=== PATIENT | male | born 1960 | race Caucasian/White ===

== ENCOUNTER 2019-12-28 06:40 | Outpatient (REF) | payer OTHER, SELFPAY ==
[2019-12-28 11:46] LABS: Anion Gap 18 (12-20); Blood Urea Nitrogen 9 mg/dL (9-16); Calcium 8.6 mg/dL (8.4-10.2); Carbon Dioxide 21 mmol/L (22-29); Chloride 106 mmol/L (96-108); Cholesterol 192 mg/dL; Estimated Glomerular Filt Rate > 60; Glucose Fasting 79 mg/dL (60-99); HDL Cholesterol 53 mg/dL; LDL Cholesterol Calculated 106 mg/dl; Sodium 140 mmol/L (135-145); Triglycerides 168 mg/dL
[2019-12-28 12:16] LABS: Prostate Specific Antigen Scr 2.13 ng/mL (<0.05-4.0); TSH reflex Free T4 0.83 mIU/mL (0.32-4.0)
== END 2019-12-28 06:41 | disposition home or self-care (01) ==
LOC: HO.HMGCLDS 06:40
PROVIDERS: PCP Nurse Practitioner Family; Visit Provider Nurse Practitioner Family
DX: Z00.00 Encounter for general adult medical examination without abnormal findings (principal); Z12.5 Encounter for screening for malignant neoplasm of prostate
CPT/HCPCS: 80048; 80061; 84153; 84443

== ENCOUNTER → 2020-03-21 15:06 | Outpatient (BNVA) | payer OTHER, SELFPAY | PROVIDERS: PCP Nurse Practitioner Family; Visit Provider Internal Medicine Cardiovascular Disease | DX: I49.3 Ventricular premature depolarization (principal); I10 Essential (primary) hypertension | CPT/HCPCS: 93005 ==

== ENCOUNTER 2020-07-03 08:26 | Emergency (ER) | payer OTHER, SELFPAY ==
--- NOTE | ~2020-07-03 | US_ITS ---
EXAMINATION: US VENOUS ULTRASOUND WITH DOPPLER LOWER EXTREMITY, RIGHT CLINICAL INFORMATION: Pain and edema COMPARISON: None TECHNIQUE: Ultrasound of the deep veins is performed from the hip to the calf with compression sonography and color and pulse Doppler assessment. Spectral analysis with color-flow imaging is performed. FINDINGS: There is normal venous compression and respiratory variation and augmented flow. The visualized common femoral vein, superficial femoral vein, profunda femoral vein, popliteal vein, and the trifurcation region shows no evidence of deep venous thrombosis. There is no significant popliteal fossa cyst. There are multiple small lymph nodes in the groin. The largest one measuring 2.0 x 0.9 x 1.1 cm. There is mild edema in the right calf. If the patient's symptoms persist, followup ultrasound in 5 days 7 days might be of value to exclude proximal propagation from a non-visualized calf vein. US/US venous duplex LE RT IMPRESSION: No DVT demonstrated in the right lower extremity.
[2020-07-03 08:48] VITALS: BP 126/91; PULSE 78; RESP 18; TEMP 36.7; O2SAT 97; BMI 20.7
--- NOTE | 2020-07-03 09:19 | ED.LOWEXIN ---
HPI - Extremity Injury (Lower) General Chief Complaint: Extremity Injury, Lower Stated Complaint: leg infection Time Seen by Provider: 07/03/20 09:18 Source: patient and family () Mode of arrival: ambulatory Limitations: no limitations History of Present Illness HPI Narrative: Patient is a 59-year-old male with a past medical history of PVCs, HTN, PVD, HLD and cellulitis who is a current smoker complaining of a right lower extremity pain, swelling and redness. Patient states about a week ago and he has scratched does leg and is becoming more red and painful since. He went to his PCP this morning who told him to come to the emergency room. Patient's states he has difficulty ambulating on it because it is so painful. He denies taking any medications or doing anything to try to make it feel better. Denies any long flights or being sedentary for any length of time. Denies fevers Related Data Home Medications Medication Instructions Recorded Confirmed amlodipine 10 mg tablet 10 mg PO DAILY 12/27/19 03/21/20 metoprolol succinate 100 mg 100 mg PO DAILY 12/27/19 03/21/20 tablet,extended release 24 hr Previous Rx's Medication Instructions Recorded lisinopril 40 mg tablet 40 mg PO DAILY #90 cap 05/15/20 tadalafil 5 mg tablet 5 mg PO DAILY #90 cap 05/15/20 cephalexin [Keflex] 750 mg PO Q8H 10 Days #30 cap 07/03/20 doxycycline hyclate 100 mg PO BID 7 Days #14 tab 07/03/20 Allergies Allergy/AdvReac Type Severity Reaction Status Date / Time codeine [CODEINE] Allergy Unknown HIVES Verified 07/03/20 07:43 Review of Systems Review of Systems: Yes all other systems are reviewed and are negative [facility] Past Medical History Medical History Bigeminy Dyslipidemia Erectile dysfunction HTN (hypertension) Proteinuria PVCs (premature ventricular contractions) PVD (peripheral vascular disease) Rosacea Tachycardia Tobacco use Surgical History No pertinent past surgical history Family History Family History Father No problems noted. Mother No problems noted. Sister No problems noted. Sister No problems noted. Son No problems noted. Brother No problems noted. Brother No problems noted. Brother No problems noted. Brother No problems noted. Social History Social History Smoking Status: Current every day smoker Smoked in Last 30 Days: Yes Use of substances other than those prescribed or required for medical reasons: No Advance Directives: No Advance Directives Information Provided: No Physical Exam Vital Signs: Vital Signs: Last Vital Signs Temp 98.1 F 07/03/20 08:48 Pulse 78 07/03/20 08:48 Resp 18 07/03/20 08:48 BP 126/91 H 07/03/20 08:48 Pulse Ox 97 07/03/20 08:48 Body Mass Index 20.7 Const: General: cooperative, healthy appearing, comfortable and no acute distress Nutritional Appearance: average body habitus Orientation/consciousness: patient oriented x3 HENMT: Head: Yes normal to inspection Ears: hearing grossly normal bilaterally General nose exam: Normal external nose present Eyes: General: appearance normal, both eyes and all related structures Resp: Effort & Inspection: normal respiratory effort and able to speak in complete sentences Neuro: General: patient oriented x3 Extrem: Other: Right lower extremity from the mid calf down to the toes edema, erythema, TTP, positive Homans sign, good pulses Course Course Course Narrative: 59-year-old male past medical history of HTN, HLD, PVD, current smoker and cellulitis complaining of 1 week of redness, swelling to right lower extremity. Physical exam revealed right lower extremity, positive Homans sign, erythema, swelling, good pulses. Wells criteria puts patient at a 2, moderate risk, will get ultrasound to rule out DVT, and labs for WBC, d dimer as well. This is likely cellulitis. VSS. MDM - Extremity Injury (Lower) Lab Data Attestation: I reviewed the patient's lab results. Result diagrams: 07/03/20 10:13 07/03/20 10:12 Labs: Lab Results 07/03/20 07/03/20 07/03/20 Range/Units 10:12 10:12 10:13 WBC 9.8 (4.8-10.8) X10*3/uL RBC 6.11 H (4.60-5.80) X10*6/uL Hgb 20.2 H (14.0-18.0) g/dl Hct 59.6 H (42-52) % MCV 97.5 (80-98) fL MCH 33.1 H (27.0-33.0) pg MCHC 33.9 (31.0-36.0) g/dl RDW 15.2 (11.0-16.0) % Plt Count 445 H (160-400) X10*3/uL MPV 10.1 (9.4-12.4) fL Immature Gran % (Auto) 2.2 H (0.0-0.4) % Neut % (Auto) 77.6 H (45-73) % Lymph % (Auto) 10.2 L (20-40) % [place] % (Auto) 6.7 (2-11) % Eos % (Auto) 1.6 (0-4) % Baso % (Auto) 1.7 (0-2) % Lymph # (Auto) 1.0 L (1.2-4.9) X10*3/uL [place] # (Auto) 0.7 (0.1-1.2) X10*3/uL Eos # (Auto) 0.2 (0.0-0.4) X10*3/uL Baso # (Auto) 0.2 (0.0-0.2) X10*3/uL Abs Immat Gran (auto) 0.21 H (0.00-0.03) X10*3/uL Absolute Neuts (auto) 7.6 (2.0-8.3) X10*3/uL Absolute Nucleated RBC 0.000 (0.0-0.012) X10*3/uL Nucleated RBC % (auto) 0.0 (0.0-0.2) /100WBC D-Dimer 250 NG/ML Sodium 140 (135-145) mmol/L Potassium 4.1 (3.3-5.1) mmol/L Chloride 108 (96-108) mmol/L Carbon Dioxide 19 L (22-29) mmol/L Anion Gap 17 (12-20) BUN 7 L (9-16) mg/dL Creatinine 0.62 (0.5-1.4) mg/dL Estim Creat Clear Calc 112.3 Estimated GFR > 60 Random Glucose 93 (60-115) mg/dL Calcium 9.1 (8.4-10.2) mg/dL Imaging Data US LE: Attestation: I personally reviewed and interpreted this imaging study as follows: My impression: No DVT Radiologist's impression: [address] [id number] ReportSigned Patient: Michel MartinezMR#: [id number]: [id number]:[id number]/Sex: 59 / MADM Date: 07/03/20Loc: HO.EDAttending Dr: Ordering Physician: Tonya Pink PA-C Date of Service: 07/03/20 Procedure(s): US venous duplex LE RT Accession Number(s): [id number] cc: Tonya Pink PA-C~ EXAMINATION: US VENOUS ULTRASOUND WITH DOPPLER LOWER EXTREMITY, RIGHT CLINICAL INFORMATION: Pain and edema COMPARISON: None TECHNIQUE: Ultrasound of the deep veins is performed from the hip to the calf with compression sonography and color and pulse Doppler assessment. Spectral analysis with color-flow imaging is performed. FINDINGS: There is normal venous compression and respiratory variation and augmented flow. The visualized common femoral vein, superficial femoral vein, profunda femoral vein, popliteal vein, and the trifurcation region shows no evidence of deep venous thrombosis. There is no significant popliteal fossa cyst. There are multiple small lymph nodes in the groin. The largest one measuring 2.0 x 0.9 x 1.1 cm. There is mild edema in the right calf. If the patient's symptoms persist, followup ultrasound in 5 days 7 days might be of value to exclude proximal propagation from a non-visualized calf vein. US/US venous duplex LE RT IMPRESSION: No DVT demonstrated in the right lower extremity. Dictated By:DWAYNE BARAJAS MDSigned By:<Electronically signed by DWAYNE BARAJAS MD in OV>07/03/20 1054 DD/ [id number]/TT: Ammonium Hydroxide Operator: [facility] [place] Discharge Plan Discharge Clinical Impression: Cellulitis Qualifiers: Site of cellulitis: extremity Site of cellulitis of extremity: lower extremity Laterality: right Qualified Code(s): L03.115 - Cellulitis of right lower limb Patient Disposition: Home, Self-Care Instructions: Cellulitis (ED) Additional Instructions: Your ultrasound showed no DVT in your right lower extremity today. As discussed, please take both antibiotics in full under cellulitis should start to resolve in the next few days. If you develop a fever, a heart rate over 100 where the swelling and pain and redness gets worse, please return to the emergency department. Prescriptions: New cephalexin [Keflex] 750 mg capsule 750 mg PO Q8H 10 Days Qty: 30 RF: 0 doxycycline hyclate 100 mg tablet 100 mg PO BID 7 Days Qty: 14 RF: 0 No Action tadalafil 5 mg tablet 5 mg PO DAILY Qty: 90 RF: 0 lisinopril 40 mg tablet 40 mg PO DAILY Qty: 90 RF: 2 amlodipine 10 mg tablet 10 mg PO DAILY RF: 0 metoprolol succinate 100 mg tablet extended release 24 hr 100 mg PO DAILY RF: 0
[2020-07-03 10:19] LABS: MANUAL DIFF FLAG NO
[2020-07-03 10:31] LABS: Basophils Absolute Auto 0.2 X10*3/uL (0.0-0.2); Basophils Percent Auto 1.7 % (0-2); Eosinophils Absolute Auto 0.2 X10*3/uL (0.0-0.4); Eosinophils Percent Auto 1.6 % (0-4); Imm Gran Abs Auto 0.21 X10*3/uL (0.00-0.03); Imm Gran Pct Auto 2.2 % (0.0-0.4); Lymphocytes Percent Auto 10.2 % (20-40); Mean Corpuscular HGB Conc 33.9 g/dl (31.0-36.0); Mean Corpuscular Hemoglobin 33.1 pg (27.0-33.0); Mean Corpuscular Volume 97.5 fL (80-98); Mean Platelet Volume 10.1 fL (9.4-12.4); Monocytes Absolute Auto 0.7 X10*3/uL (0.1-1.2); Monocytes Percent Auto 6.7 % (2-11); Neutrophils Absolute Auto 7.6 X10*3/uL (2.0-8.3); Neutrophils Percent Auto 77.6 % (45-73); Platelet Count 445 X10*3/uL (160-400); Red Blood Count 6.11 X10*6/uL (4.60-5.80); Red Cell Distribution Width 15.2 % (11.0-16.0); White Blood Count 9.8 X10*3/uL (4.8-10.8)
[2020-07-03 10:32] LABS: D Dimer 250 NG/ML
[2020-07-03 10:32] LABS: Hematocrit 59.6 % (42-52); Hemoglobin 20.2 g/dl (14.0-18.0)
[2020-07-03 10:44] LABS: Anion Gap 17 (12-20); Blood Urea Nitrogen 7 mg/dL (9-16); Calcium 9.1 mg/dL (8.4-10.2); Carbon Dioxide 19 mmol/L (22-29); Chloride 108 mmol/L (96-108); Creatinine Clr Calc Pharmacy 112.3; Estimated Glomerular Filt Rate > 60; Glucose Random 93 mg/dL (60-115); Potassium 4.1 mmol/L (3.3-5.1); Sodium 140 mmol/L (135-145)
== END 2020-07-03 11:30 | disposition home or self-care (01) ==
PROVIDERS: Physician Assistant; Emergency Provider Emergency Medicine Emergency Medical Services; PCP Nurse Practitioner Family
DX: L03.115 Cellulitis of right lower limb (principal); R60.0 Localized edema; Z79.899 Other long term (current) drug therapy; F17.200 Nicotine dependence, unspecified, uncomplicated; Z71.6 Tobacco abuse counseling
CPT/HCPCS: 36415; 80048; 85025; 85060; 85379; 93971; 99283

== ENCOUNTER 2020-07-09 06:46 | Observation (INO) | payer OTHER, SELFPAY ==
--- NOTE | ~2020-07-09 | US_ITS ---
EXAMINATION: US VENOUS ULTRASOUND WITH DOPPLER LOWER EXTREMITY, RIGHT CLINICAL INFORMATION: Right leg pain and swelling. Question superficial thrombophlebitis. COMPARISON: None TECHNIQUE: Ultrasound of the deep veins is performed from the hip to the calf with compression sonography and color and pulse Doppler assessment. Spectral analysis with color-flow imaging is performed. FINDINGS: There is normal venous compression and respiratory variation and augmented flow. The visualized common femoral vein, superficial femoral vein, profunda femoral vein, popliteal vein, and the trifurcation region shows no evidence of deep venous thrombosis. The popliteal vein is not visualized. There is acute appearing clot within the greater saphenous vein from proximal to distal segment of the calf. There are multiple large groin lymph nodes. Largest measuring 1.8 x 0.8 x 1.4 cm. If the patient's symptoms persist, followup ultrasound in 5 days 7 days might be of value to exclude proximal propagation from a non-visualized calf vein. US/US venous duplex LE RT IMPRESSION: No DVT demonstrated in the right lower extremity. Acute clot within the greater saphenous vein from proximal to distal calf suggestive of superficial thrombophlebitis. Multiple large groin lymph nodes.
--- NOTE | ~2020-07-09 | CT_ITS ---
EXAMINATION: CT ABDOMEN AND PELVIS WITHOUT AND WITH CONTRAST CLINICAL INFORMATION: Inguinal lymphadenopathy and erythrocytosis. Evaluate for renal cell cancer and adenopathy. COMPARISON: Previous renal and bladder ultrasound July 2014 TECHNIQUE: Multidetector volumetric imaging was performed of the abdomen and pelvis before and after the IV administration of 85 mL of Omnipaque 350 intravenous contrast. Sagittal and coronal reformatted images were obtained on the technologist's workstation. This CT examination was performed using dose optimization techniques as appropriate, variously including the following: *Automated exposure control *Adjustment of mA and/or kV according to patient size (this includes techniques or standardized protocols for targeted exams where dose is matched to indication/reason for exam; i.e. extremities or head) *Use of iterative reconstruction technique DLP: 834 mGy-cm FINDINGS: LUNG BASES: The visualized lung bases are unremarkable. LIVER, GALLBLADDER, AND BILIARY TREE: The liver is low in attenuation suggestive of fatty infiltration. There is a small 3 mm low-attenuation lesion in the medial segment of the left lobe of the liver axial image 13 series 9. This is small to definitely characterize but may represent a cyst. No other liver lesion is seen. The gallbladder is unremarkable. There are no gallstones in the gallbladder. PANCREAS: There is a small 4 mm cyst in the body the pancreas axial image 23 series 9. Pancreas is otherwise normal. The main pancreatic duct does not appear dilated. SPLEEN: Unremarkable ADRENAL GLANDS: There is fullness of the left adrenal gland. Discrete nodule is not seen. The right adrenal gland is normal. KIDNEYS AND URETERS: . There are small low-attenuation renal lesions probably representing cysts. The largest measures 5 mm in the midpole of each kidney. No renal mass is seen. The kidneys are normal in size, shape, and attenuation. No hydronephrosis, hydroureter, or calculi seen BLADDER: Unremarkable GASTROINTESTINAL TRACT: The small and large bowel are unremarkable. The appendix is identified. The ABDOMINAL WALL: No significant hernia is appreciated. LYMPH NODES: There are no enlarged lymph nodes. There is no ascites. VASCULAR: There is evidence of atherosclerotic disease. PELVIC VISCERA: Unremarkable OSSEOUS STRUCTURES: There is ankylosis at the L5-S1 disc space level. There are degenerative changes of the spine. No fracture or bone lesion is seen. CT/CT abdomen pelvis wo/w con IMPRESSION: Fatty liver. Small 5 mm cyst in the body of the pancreas. Small probable bilateral renal cysts. Otherwise normal appearing kidneys. No adenopathy.
--- NOTE | 2020-07-09 07:11 | ED.SKABFB ---
HPI - Skin/Abscess/Foreign Bdy General Chief complaint: Skin/Abscess/Foreign Body Stated complaint: Cellulitis? Time Seen by Provider: 07/09/20 07:11 Source: patient Mode of arrival: ambulatory Limitations: no limitations History of Present Illness HPI narrative: 59 yo male with HTN here with worsening cellulitis and red streaks up R leg after starting cephalexin and doxycycline for 6 days, no fevers, no chills, area started out as a scratch after hitting leg MD complaint: rash Onset (ago): week(s) (1) Tetanus up to date: yes Location: RLE Severity: moderate Quality: aching Pain Consistency: constant Relieving factors: none Exacerbating factors: none Context: recent illness and recent antibiotic Associated symptoms: denies other symptoms Treatments prior to arrival: antibiotic Related Data Home Medications Medication Instructions Recorded Confirmed metoprolol succinate 100 mg 100 mg PO DAILY 12/27/19 07/09/20 tablet,extended release 24 hr cephalexin 1 cap PO QID 07/09/20 07/09/20 Previous Rx's Medication Instructions Recorded lisinopril 40 mg tablet 40 mg PO DAILY #90 cap 05/15/20 tadalafil 5 mg tablet 5 mg PO DAILY #90 cap 05/15/20 doxycycline hyclate 100 mg PO BID 7 Days #14 tab 07/03/20 amlodipine 10 mg tablet 10 mg PO DAILY #90 tab 07/08/20 Allergies Allergy/AdvReac Type Severity Reaction Status Date / Time codeine [CODEINE] Allergy Unknown HIVES Verified 07/03/20 07:43 Review of Systems Review of Systems: Constitutional : No Fever, No Chills ENT/Mouth : No sore throat, No Rhinorrhea Eyes: No Eye Pain, No Swelling, No Redness Cardiovascular : No Chest Pain, No SOB Respiratory : No Cough, No Sputum Gastrointestinal : No Nausea, No Vomiting, No Diarrhea, No abdominal Pain Genitourinary : No Dysuria, No Hematuria Musculoskeletal : No joint pain, No Myalgias, No Joint Swelling Skin : No Skin Lesions, positive skin rash Neuro : No Weakness, No Numbness, No Headache Psych : No Anxiety, No Depression Heme/Lymph: No Bruising, No Bleeding,No Lymphadenopathy Endocrine : No Polyuria, No Polydipsia All other systems reviewed and are negative PMFSH Past Medical History Attestation statement: The following information was validated with the patient. Medical History Bigeminy Dyslipidemia Erectile dysfunction HTN (hypertension) Proteinuria PVCs (premature ventricular contractions) PVD (peripheral vascular disease) Rosacea Tachycardia Tobacco use Surgical History No pertinent past surgical history Family History Family History Father No problems noted. Mother No problems noted. Sister No problems noted. Sister No problems noted. Son No problems noted. Brother No problems noted. Brother No problems noted. Brother No problems noted. Brother No problems noted. Social History Social History Smoking Status: Current every day smoker Advance Directives: Yes Advance Directives Information Provided: Yes Advance Directives on File: No Physical Exam Vital Signs: Vital Signs: Last Vital Signs Temp 99.0 F 07/09/20 08:01 Pulse 78 07/09/20 08:01 Resp 20 07/09/20 08:01 BP 147/98 H 07/09/20 08:01 Pulse Ox 97 07/09/20 08:01 Body Mass Index 20.7 Appearance: Alert. Oriented X3. No acute distress. Eyes: Pupils equal, round and reactive to light. ENT: Pharynx normal. Neck: Normal inspection. Neck supple. CVS: Normal heart rate and rhythm. Pulses normal. Respiratory: No respiratory distress. Breath sounds normal. Abdomen: Soft and nontender. Skin: Skin warm and dry. Normal skin color. Normal skin turgor. Extremities: RLE erythema /warmth and swelling with lymphangitis from ankle to proximal calf, ropy cord felt R inner calf, distal NV intact, full ROM of ankle without pain Neuro: Oriented X 3. No motor deficit. No sensory deficit. Course Course Course Narrative: called Radiology thrombophlebitis is greater than 5cm will need xarelto for 45 days, does not want coumadin, discussed risks and benefits denies GIB symptoms aware of bleeding risks, will need admission at this time, called hospitalist at 922am for admission MDM - Skin/Abscess/Foreign Bdy MDM Narrative Medical decision making narrative: 59 yo male with HTN completed almost a week of cephalexin and doxy worsening RLE swelling/erythema now streaking up leg at this time will need labs, cultures, DVT study vs superficial thrombophlebitis, US to evaluate DVT, IV antibiotics, likely admit Lab Data Result diagrams: 07/09/20 07:33 07/09/20 07:33 Labs: Lab Results 07/09/20 07/09/20 07/09/20 Range/Units 07:33 07:33 07:33 WBC 10.2 (4.8-10.8) X10*3/uL RBC 6.02 H (4.60-5.80) X10*6/uL Hgb 19.8 H (14.0-18.0) g/dl Hct 57.8 H (42-52) % MCV 96.0 (80-98) fL MCH 32.9 (27.0-33.0) pg MCHC 34.3 (31.0-36.0) g/dl RDW 14.9 (11.0-16.0) % Plt Count 445 H (160-400) X10*3/uL MPV 10.3 (9.4-12.4) fL Immature Gran % (Auto) 1.7 H (0.0-0.4) % Neut % (Auto) 79.6 H (45-73) % Lymph % (Auto) 8.1 L (20-40) % [place] % (Auto) 7.6 (2-11) % Eos % (Auto) 1.6 (0-4) % Baso % (Auto) 1.4 (0-2) % Lymph # (Auto) 0.8 L (1.2-4.9) X10*3/uL [place] # (Auto) 0.8 (0.1-1.2) X10*3/uL Eos # (Auto) 0.2 (0.0-0.4) X10*3/uL Baso # (Auto) 0.1 (0.0-0.2) X10*3/uL Abs Immat Gran (auto) 0.17 H (0.00-0.03) X10*3/uL Absolute Neuts (auto) 8.1 (2.0-8.3) X10*3/uL Absolute Nucleated RBC 0.000 (0.0-0.012) X10*3/uL Nucleated RBC % (auto) 0.0 (0.0-0.2) /100WBC Hold Blue Top SEE NOTE Lactic Acid 1.8 (0.5-2.0) mmol/L COVID-19 (KISHA) (Negative) COVID-19 Clin Com 07/09/20 Range/Units 07:34 WBC (4.8-10.8) X10*3/uL RBC (4.60-5.80) X10*6/uL Hgb (14.0-18.0) g/dl Hct (42-52) % MCV (80-98) fL MCH (27.0-33.0) pg MCHC (31.0-36.0) g/dl RDW (11.0-16.0) % Plt Count (160-400) X10*3/uL MPV (9.4-12.4) fL Immature Gran % (Auto) (0.0-0.4) % Neut % (Auto) (45-73) % Lymph % (Auto) (20-40) % [place] % (Auto) (2-11) % Eos % (Auto) (0-4) % Baso % (Auto) (0-2) % Lymph # (Auto) (1.2-4.9) X10*3/uL [place] # (Auto) (0.1-1.2) X10*3/uL Eos # (Auto) (0.0-0.4) X10*3/uL Baso # (Auto) (0.0-0.2) X10*3/uL Abs Immat Gran (auto) (0.00-0.03) X10*3/uL Absolute Neuts (auto) (2.0-8.3) X10*3/uL Absolute Nucleated RBC (0.0-0.012) X10*3/uL Nucleated RBC % (auto) (0.0-0.2) /100WBC Hold Blue Top Lactic Acid (0.5-2.0) mmol/L COVID-19 (KISHA) Negative (Negative) COVID-19 Clin Com See Note Discharge Plan Discharge Clinical Impression: Cellulitis, Superficial thrombophlebitis of leg Patient Disposition: Admitted As Inpatient Prescriptions: No Action tadalafil 5 mg tablet 5 mg PO DAILY Qty: 90 RF: 0 lisinopril 40 mg tablet 40 mg PO DAILY Qty: 90 RF: 2 amlodipine 10 mg tablet 10 mg PO DAILY Qty: 90 RF: 1 doxycycline hyclate 100 mg tablet 100 mg PO BID 7 Days Qty: 14 RF: 0 cephalexin 500 mg capsule 1 cap PO QID RF: 0 metoprolol succinate 100 mg tablet extended release 24 hr 100 mg PO DAILY RF: 0
[2020-07-09 07:12] VITALS: BP 143/89; PULSE 86; RESP 20; TEMP 36.8; O2SAT 97; BMI 20.7
[2020-07-09 07:41] LABS: MANUAL DIFF FLAG NO
[2020-07-09] MEDS: Piperacillin Sodium/Tazobactam 3.375 GM in 0.9 % Sodium Chloride 50 ML IV (07:49)
[2020-07-09] MEDS: 0.9 % Sodium Chloride 1,000 ML 999 ML IVCONT ×2 (07:57→10:06)
[2020-07-09 07:58] LABS: Basophils Absolute Auto 0.1 X10*3/uL (0.0-0.2); Basophils Percent Auto 1.4 % (0-2); Eosinophils Absolute Auto 0.2 X10*3/uL (0.0-0.4); Eosinophils Percent Auto 1.6 % (0-4); Hemoglobin 19.8 g/dl (14.0-18.0); Imm Gran Abs Auto 0.17 X10*3/uL (0.00-0.03); Imm Gran Pct Auto 1.7 % (0.0-0.4); Lymphocytes Absolute Auto 0.8 X10*3/uL (1.2-4.9); Lymphocytes Percent Auto 8.1 % (20-40); Mean Corpuscular HGB Conc 34.3 g/dl (31.0-36.0); Mean Corpuscular Hemoglobin 32.9 pg (27.0-33.0); Mean Platelet Volume 10.3 fL (9.4-12.4); Monocytes Absolute Auto 0.8 X10*3/uL (0.1-1.2); Monocytes Percent Auto 7.6 % (2-11); Neutrophils Absolute Auto 8.1 X10*3/uL (2.0-8.3); Neutrophils Percent Auto 79.6 % (45-73); Platelet Count 445 X10*3/uL (160-400); Red Blood Count 6.02 X10*6/uL (4.60-5.80); Red Cell Distribution Width 14.9 % (11.0-16.0); White Blood Count 10.2 X10*3/uL (4.8-10.8)
[2020-07-09 07:59] LABS: Hematocrit 57.8 % (42-52)
[2020-07-09 08:00] LABS: Lactic Acid 1.8 mmol/L (0.5-2.0)
[2020-07-09 08:01] VITALS: BP 147/98; PULSE 78; RESP 20; TEMP 37.2; O2SAT 97
[2020-07-09 08:02] LABS: COVID-19 Test Negative (Negative)
--- NOTE | 2020-07-09 08:15 | PC.NURSE ---
Pt alert and oriented, skin pink, warm, dry. Afebrile, VSS, + CMS. Cellulitic area to RLE extending to medial calf. Pt started on IV Abt, Ultra Sound being done at this time. at bedside.
[2020-07-09] MEDS: vancomycin HCL 1,000 MG in 0.9 % Sodium Chloride 250 ML 270 MG IV (08:46)
[2020-07-09 09:23] LABS: Prothrombin Time 11.5 SEC (10.8-13.0)
[2020-07-09 09:55] LABS: Alanine Aminotransferase 11 U/L (0-40); Albumin Level 3.4 g/dL (3.5-5.0); Alkaline Phosphatase 56 U/L (39-117); Anion Gap 13 (12-20); Aspartate Amino Transferase 21 U/L (5-37); Bilirubin Direct 0.4 mg/dL (0.0-0.5); Blood Urea Nitrogen 10 mg/dL (9-16); Calcium 8.4 mg/dL (8.4-10.2); Carbon Dioxide 23 mmol/L (22-29); Chloride 107 mmol/L (96-108); Creatinine Clr Calc Pharmacy 105.5; Estimated Glomerular Filt Rate > 60; Glucose Random 96 mg/dL (60-115); Magnesium 1.8 mg/dL (1.6-2.6); Potassium 3.9 mmol/L (3.3-5.1); Sodium 139 mmol/L (135-145); Total Protein 5.5 g/dL (6.5-8.0)
[2020-07-09] MEDS: Rivaroxaban 10 MG TABLET PO (10:34)
[2020-07-09 10:43] VITALS: BP 146/78; PULSE 85; RESP 16; O2SAT 97
--- NOTE | 2020-07-09 10:50 | P.HPHOSP_ITS ---
History of Present Illness Date of Service: 07/09/20 Chief Complaint: rle swelling redness 59M presented with about 1 week, right lower extremity swelling and erythema and pain. he was seen in ED 07/03/20, at that time US was negative for DVT, he was diagnosed with cellulitis, given cephalexin and doxy, patient reports that he did not improve so he came back. he denied fever, chills, sob, chest pain. denied history of VTE. in ED repeat US showed Acute clot within the greater saphenous vein from proximal to distal calf suggestive of superficial thrombophlebitis and Multiple large groin lymph nodes. of note he has an elevated hgb of 20 and platelets around 450. Review of Systems Review of Systems: Constitutional: Denies fever, denies Chills Eyes: denies blurry vision ENT: denies sore throat CVS: denies chest pain Respiratory: Denies dyspnea GI: no abdominal pain : denies dysuria MSK: denies neck pain Skin: rash Neuro: denies specific motor weakness Psych: denies suicidal ideation Endocrine: denies heat/cold intoleratnce Hematologic: denies easy bleeding Allergy: denies hives [facility] Medical History Bigeminy Dyslipidemia Erectile dysfunction HTN (hypertension) Proteinuria PVCs (premature ventricular contractions) PVD (peripheral vascular disease) Rosacea Tachycardia Tobacco use Family History Father No problems noted. Mother No problems noted. Sister No problems noted. Sister No problems noted. Son No problems noted. Brother No problems noted. Brother No problems noted. Brother No problems noted. Brother No problems noted. Family history: reviewed and not pertinent Surgical History No pertinent past surgical history Social History Alcohol intake: current Alcohol intake frequency: 0-2 drinks per day Alcohol type: beer Smoking Status: Current every day smoker Use of substances other than those prescribed or required for medical reasons: No Advance Directives: Yes Advance Directives Information Provided: Yes Advance Directives on File: No Meds Allergies Allergy/AdvReac Type Severity Reaction Status Date / Time codeine [CODEINE] Allergy Unknown HIVES Verified 07/03/20 07:43 Active Medications: Current Medications Generic Name Dose Route Start Last Admin Trade Name Comfort PRN Reason Stop Dose Admin Amlodipine Besylate 10 mg 07/10/20 09:00 Amlodipine Besylate 10 Mg Tablet PO DAILY [facility] Protocol Lisinopril 40 mg 07/10/20 09:00 Lisinopril 40 Mg Tablet PO DAILY [facility] Protocol Metoprolol Succinate 100 mg 07/10/20 09:00 Metoprolol Succinate Er 100 Mg Tab.Er.24h PO DAILY [facility] Protocol Non-Formulary Medication 5 mg 07/10/20 09:00 Tadalafil PO DAILY [facility] Rivaroxaban 15 mg 07/09/20 21:00 Rivaroxaban 15 Mg Tablet PO BID [facility] Sodium Chloride 3 ml 07/09/20 16:00 0.9 % Sodium Chloride Flush 3 Ml Syringe IVFLUSH QSHIFT [facility] Home Medications Medication Instructions Recorded Confirmed Last Taken Type metoprolol succinate 100 mg 100 mg PO DAILY 12/27/19 07/09/20 07/09/20 History tablet,extended release 24 hr cephalexin 1 cap PO QID 07/09/20 07/09/20 07/09/20 History Physical Exam Vital Signs and Narrative: Vital Signs: Last Vital Signs Temp 99.0 F 07/09/20 08:01 Pulse 85 07/09/20 10:43 Resp 16 07/09/20 10:43 BP 146/78 H 07/09/20 10:43 Pulse Ox 97 07/09/20 10:43 Body Mass Index 20.7 General: no acute distress HEENT: atraumatic Neck: normal to visual inspection CVS: S1, S2, RRR Resp: CTA bilateral Chest: non tender GI: soft, non tender, non distended : no CVA tenderness Skin: dry Extremities: RLE streaky ertyhema, groin lymph nodes Neuro: Oriented X3, grossly intact Psych: cooperative Results Labs CBC and Chem 7: 07/09/20 07:33 07/09/20 09:24 Labs: Laboratory Results - last 24 hr 07/09/20 07/09/20 07/09/20 07:33 07:33 07:33 MCV 96.0 MCH 32.9 MCHC 34.3 RDW 14.9 Plt Count 445 H MPV 10.3 Immature Gran % (Auto) 1.7 H Neut % (Auto) 79.6 H Lymph % (Auto) 8.1 L [place] % (Auto) 7.6 Eos % (Auto) 1.6 Baso % (Auto) 1.4 Lymph # (Auto) 0.8 L [place] # (Auto) 0.8 Eos # (Auto) 0.2 Baso # (Auto) 0.1 Abs Immat Gran (auto) 0.17 H Absolute Neuts (auto) 8.1 Absolute Nucleated RBC 0.000 Nucleated RBC % (auto) 0.0 PT 11.5 INR 1.0 APTT 35.0 Hold Blue Top SEE NOTE Anion Gap Estim Creat Clear Calc Estimated GFR Random Glucose Lactic Acid 1.8 Calcium Magnesium Total Bilirubin Direct Bilirubin AST ALT Alkaline Phosphatase Total Protein Albumin COVID-19 (KISHA) COVID-19 Pycno Com 07/09/20 07/09/20 07:34 09:24 MCV MCH MCHC RDW Plt Count MPV Immature Gran % (Auto) Neut % (Auto) Lymph % (Auto) [place] % (Auto) Eos % (Auto) Baso % (Auto) Lymph # (Auto) [place] # (Auto) Eos # (Auto) Baso # (Auto) Abs Immat Gran (auto) Absolute Neuts (auto) Absolute Nucleated RBC Nucleated RBC % (auto) PT INR APTT Hold Blue Top Anion Gap 13 Estim Creat Clear Calc 105.5 Estimated GFR > 60 Random Glucose 96 Lactic Acid Calcium 8.4 D Magnesium 1.8 Total Bilirubin 1.0 Direct Bilirubin 0.4 AST 21 ALT 11 Alkaline Phosphatase 56 Total Protein 5.5 L Albumin 3.4 L COVID-19 (KISHA) Negative COVID-19 Clin Com See Note Imaging Radiologist's Impressions: Impressions Venous Duplex 07/09/20 07:16 IMPRESSION: No DVT demonstrated in the right lower extremity. Acute clot within the greater saphenous vein from proximal to distal calf suggestive of superficial thrombophlebitis. Multiple large groin lymph nodes. Assessment and Plan (1) Superficial thrombophlebitis of leg: Qualifiers: Laterality: right Qualified Code(s): I80.01 - Phlebitis and thrombophle bitis of superficial vessels of right lower extremity Status: Acute 59M presented with RLE ertyhema, edema not responding to antibiotics, found to have superficial thrombophlebitis and elevated hgb and platelets superficial thrombophlebitis risk factor appears to be undiagnosed myeloproliferative disorder phlebotomy, full dose anticoagulation - xarelto 15 bid for 3 weeks then 20mg daily, check ldh, johnathan 2, hematology eval, follow up lymph nodes for resolution htn lisinpirl amlodipine toprol smoking cessation alcohol use 2-3 beers per day monitor for withdrawl low risk
[2020-07-09 11:21] LABS: Lactate Dehydrogenase 178 U/L (118-273)
[2020-07-09 14:22] VITALS: BP 149/89; PULSE 77; RESP 16; O2SAT 97
--- NOTE | 2020-07-09 14:35 | PC.NURSE ---
Pt transported to blood bank for therapeutic phelbotomy procedure
--- NOTE | 2020-07-09 14:36 | MHC.CM.PN ---
Attempted to meet with patient in regards to discharge planning. Patient not currently in room. Will attempt to meet again. Continue to monitor for d/c needs.
--- NOTE | 2020-07-09 15:18 | PM.HEMONCCN ---
Subjective - Subjective Chief complaint: Consult for:1. Erythrocytosis.2. Superficial thrombophlebitis right leg. Patient: new to practice Consult date: 07/09/20 Requesting Physician: Tanya. [facility] Summary: DIAGNOSIS: 1. ERYTHROCYTOSIS. 2. SUPERFICIAL THROMBOPHLEBITIS RIGHT LEG. HPI - Consult Narrative Reason for consult: Consult for erythrocytosis. Right leg thrombophlebitis. Narrative: Michel Martinez is a pleasant 59 year old gentleman, who tells me that he was seen by his primary last Wednesday. He had banged his leg on the side of the house. Area became rather red and warm. He was referred to the emergency room for cellulitis. They gave him oral antibiotics. It started getting better, however this morning he woke to see a red streak going the leg. He presented to the ER. Ultrasound of the leg revealed: No DVT demonstrated in the right lower extremity. Acute clot within the greater saphenous vein from proximal to distal calf suggestive of superficial thrombophlebitis. Multiple large groin lymph nodes. CBC: WBC 10.2, HGB 19.8, HCT 57.8, MCV 96, PLT 445. LDH 178, albumin 3.4, Josh 8.4. ROS: He tells me that other than that he has been doing well. He denies easy fatigability. Appetite is good. Weight is stable. Denies headache no dizziness. No chest pain or trouble breathing. He denies abdominal pain nausea vomiting heartburn indigestion. Bowels are working without any gross blood in it. He denies any dysuria or hematuria. No joint pain muscle pain. Denies any focal weakness. Denies depression. Denies any rashes nor pruritus nor itching after a bath. Family history: Denies any family history of blood disorder nor cancer. Social history: He works with the [employer]. He is . He has 1 son and 2 granddaughters. He smokes a pack a day he started 10 years ago. He likes his beer. Denies drugs. Review of Systems - Constitutional Reports system reviewed and no additional complaints, except as documented - Eyes Reports system reviewed and no additional complaints, except as documented - ENT Reports system reviewed and no additional complaints, except as documented - Cardiovascular Reports system reviewed and no additional complaints, except as documented - Respiratory Reports no additional respiratory complaints - Gastrointestinal Reports system reviewed and no additional complaints, except as documented - Genitourinary Genitourinary: Reports no additional male genitourinary complaints - Musculoskeletal Reports system reviewed and no additional complaints, except as documented - Integumentary/Breasts Skin/Breast: Reports no additional skin complaints - Neurologic Reports system reviewed and no additional complaints, except as documented - Psychiatric Reports system reviewed and no additional complaints, except as documented - Endocrine Reports no additional endocrine complaints - Hematologic/Lymphatic Reports system reviewed and no additional complaints, except as documented - Allergic/Immunologic Reports system reviewed and no additional complaints, except as documented Oncology Screenings - ECOG Performance Status ECOG Performance Status: 0 [facility] Medical History: Medical History (Last Updated 07/16/20 @ 13:14 by Nuria Eid) Bigeminy Dyslipidemia Erectile dysfunction Erythrocytosis Herniated disc HTN (hypertension) Proteinuria PVCs (premature ventricular contractions) PVD (peripheral vascular disease) Rosacea Superficial thrombophlebitis of leg Tachycardia Tobacco use Functional capacity: independent ambulation Patient : No Family History: Family History (Last Reviewed 07/09/20 @ 10:55 by Juan Jose Martínez MD) Father No problems noted. Mother No problems noted. Sister No problems noted. Sister No problems noted. Son No problems noted. Brother No problems noted. Brother No problems noted. Brother No problems noted. Brother No problems noted. Family history: reviewed and not pertinent Surgical History: Surgical History (Last Updated 07/16/20 @ 13:14 by Nuria Eid) History of appendectomy No pertinent past surgical history Social History: Social History (Last Updated 07/16/20 @ 13:14 by Nuria Eid) Alcohol History: Alcohol intake: current Alcohol History Details: Alcohol intake frequency: 0-2 drinks per day Alcohol type: beer Tobacco History: Smoking Status: Current every day smoker Tobacco Type: Cigarette Advance Directives: Advance Directives Date on File: 07/09/20 Occupation Assessmet: service: No Current occupational status: employed Smoking status: Current every day smoker Home Medications and Allergies Current Medications: Current Medications Generic Name Dose Route Start Last Admin Trade Name Freq PRN Reason Stop Dose Admin Amlodipine Besylate 10 mg 07/10/20 09:00 Amlodipine Besylate 10 Mg Tablet PO DAILY [facility] Protocol Lisinopril 40 mg 07/10/20 09:00 Lisinopril 40 Mg Tablet PO DAILY [facility] Protocol Metoprolol Succinate 100 mg 07/10/20 09:00 Metoprolol Succinate Er 100 Mg Tab.Er.24h PO DAILY [facility] Protocol Non-Formulary Medication 5 mg 07/10/20 09:00 Tadalafil PO DAILY [facility] Rivaroxaban 15 mg 07/09/20 21:00 Rivaroxaban 15 Mg Tablet PO BID [facility] Sodium Chloride 3 ml 07/09/20 16:00 0.9 % Sodium Chloride Flush 3 Ml Syringe IVFLUSH QSHIFT [facility] Home Medications Medication Instructions Recorded Confirmed Type metoprolol succinate 100 mg 100 mg PO DAILY 12/27/19 07/16/20 History tablet,extended release 24 hr Allergies Allergy/AdvReac Type Severity Reaction Status Date / Time codeine [CODEINE] Allergy Unknown HIVES Verified 07/03/20 07:43 Physical Exam Vital signs: Vital Signs Temp 99.0 F 07/09/20 08:01 Pulse 77 07/09/20 14:22 Resp 16 07/09/20 14:22 BP 149/89 H 07/09/20 14:22 Pulse Ox 97 07/09/20 14:22 Intake & Output 07/08/20 07/09/20 07/09/20 18:59 06:59 18:59 Intake Total 2320 / 2320 Balance 2320 / 2320 Intake: Intake, IV Amount 2320 / 2320 Piperacillin Sodium/Tazobactam 50 / 50 3.375 gm In 0.9 % Sodium Chloride 50 ml @ 100 mls/hr IV ONCE ONE Rx#:[id number] vancomycin HCL 1,000 mg In 0.9 270 / 270 % Sodium Chloride 250 ml @ 270 mls/hr IV ONCE ONE Rx#: [id number] 0.9 % Sodium Chloride 1,000 ml 2000 / 2000 @ 999 mls/hr IVCONT .Q1H1M [facility] Rx#:[id number] Other: Weight 63.503 kg Weight 63.503 kg - Constitutional Present: mild distress - Routine HEENT Exam Head: Present: normal inspection ENT: Present: mucous membranes moist - Routine Neck Exam Present: supple - Routine Respiratory Exam Present: CTAB - Routine Cardiovascular Exam Cardiovascular: Present: S1, S2 - Routine Abdominal Exam Present: soft, nontender - Routine Rectal Exam Patient deferred: digital exam - Routine Extremities Exam Present: calf tenderness, pulses intact, pedal edema, tenderness - Routine Skin Exam Present: intact Comments: Red streak going up the right leg. Adenopathy right groin. - Routine Neurological Exam Present: alert, oriented X3 - Detailed Neurological Exam: Coma Scale Eye Opening: Spontaneous (4) Verbal Response: Oriented (5) Motor Response: Obeys commands (6) Grayson Coma Scale Total: 15 Hem/Onc Consult Result - Labs CBC & Chem 7: 07/10/20 08:40 07/09/20 09:24 Labs: Short CBC 07/09/20 Range/Units 07:33 WBC 10.2 (4.8-10.8) X10*3/uL Hgb 19.8 H (14.0-18.0) g/dl Hct 57.8 H (42-52) % Plt Count 445 H (160-400) X10*3/uL BMP 07/09/20 09:24 Sodium 139 Potassium 3.9 Chloride 107 Carbon Dioxide 23 BUN 10 Creatinine 0.66 Calcium 8.4 D Liver Function 07/09/20 Range/Units 09:24 Total Bilirubin 1.0 (0.0-1.0) mg/dL Direct Bilirubin 0.4 (0.0-0.5) mg/dL AST 21 (5-37) U/L ALT 11 (0-40) U/L Alkaline Phosphatase 56 (39-117) U/L Albumin 3.4 L (3.5-5.0) g/dL Assessment and Plan (1) Erythrocytosis Status: Inactive This is a pleasant 59-year-old gentleman who presented with right leg cellulitis/thrombophlebitis. He has been noted to have right inguinal adenopathy. This could be related to infection versus malignancy. He was incidentally noted to have an elevated H and H: 19.8/57. 1. Most likely he has P vera. DIFFERENTIAL DIAGNOSIS: 2. SECONDARY ERYTHROCYTOSIS: Could be related to smoking. 3. UNDERLYING RENAL DISEASE: Renal cell carcinoma. PLAN: To proceed with further evaluation. Will check JAK2 mutation. Proceed with a therapeutic phlebotomy to bring the H&H down to more reasonable level. He may need more than one phlebotomy to do that. Will check a UA. Given the right inguinal adenopathy, will check a CT scan of the abdomen to look for further adenopathy/renal tumor. Meanwhile he will be treated for the phlebitis. In view of the underlying risk factor, will give therapeutic dose of Xarelto, at least initially. Thank you, CC: Juan Antonio Driver. Addendum: CT abdomen: Fatty liver. Small 5 mm cyst in the body of the pancreas. Small probable bilateral renal cysts. Otherwise normal appearing kidneys. No adenopathy. JAK2 mutation: Positive.
[2020-07-09] MEDS: iohexoL 350 MG/ML 100 ML INFUS..BTL IV (16:01)
[2020-07-09 16:09] VITALS: BP 140/74; PULSE 77; RESP 16; TEMP 37.2; O2SAT 98
[2020-07-09 17:58] VITALS: BP 141/78; PULSE 81; RESP 15; TEMP 36.4; O2SAT 98
[2020-07-09] MEDS: 0.9 % Sodium Chloride Flush 3 ML SYRINGE IVFLUSH ×2 (18:18→20:08)
[2020-07-09] MEDS: Nicotine 21 MG PATCH.TD24 TRANSDERMA (20:07)
[2020-07-09] MEDS: Rivaroxaban 15 MG TABLET PO (20:07)
[2020-07-09] MEDS: Zolpidem Tartrate 5 MG TABLET PO (21:49)
[2020-07-10] VITALS: BP 126/78; PULSE 84; RESP 14; RESP 16; TEMP 37; O2SAT 97
[2020-07-10 07:54] VITALS: BP 144/82; PULSE 77; RESP 16; TEMP 36.3; O2SAT 98
[2020-07-10] MEDS: Rivaroxaban 15 MG TABLET PO (08:15)
[2020-07-10] MEDS: Nicotine 21 MG PATCH.TD24 TRANSDERMA (08:15)
[2020-07-10] MEDS: amLODIPine Besylate 10 MG TABLET PO (08:15)
[2020-07-10 08:16] VITALS: BP 144/82
[2020-07-10] MEDS: lisinopriL 40 MG TABLET PO (08:16)
[2020-07-10] MEDS: 0.9 % Sodium Chloride Flush 3 ML SYRINGE IVFLUSH (08:16)
[2020-07-10] MEDS: Metoprolol Succinate ER 100 MG TAB.ER.24H PO (08:16)
[2020-07-10 08:52] LABS: Hematocrit 50.6 % (42-52); Hemoglobin 17.6 g/dl (14.0-18.0); Mean Corpuscular HGB Conc 34.8 g/dl (31.0-36.0); Mean Corpuscular Hemoglobin 33.3 pg (27.0-33.0); Mean Corpuscular Volume 95.8 fL (80-98); Mean Platelet Volume 10.2 fL (9.4-12.4); Platelet Count 387 X10*3/uL (160-400); Red Blood Count 5.28 X10*6/uL (4.60-5.80); Red Cell Distribution Width 14.6 % (11.0-16.0); White Blood Count 10.7 X10*3/uL (4.8-10.8)
--- NOTE | 2020-07-10 09:23 | MHC.CM.PN ---
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 PER NOTES PT WILL BE ON XERELTO, T/W CONTACTED PT'S INSURANCE [employer] RX AT 9:05AM [phone] TO VERIFY COPAY, PER INS REP PT'S COPAY FOR 1 MONTH SUPPLY IS $3.65, PT WOULD STILL LIKE A FREE 30 DAY SUPPLY CARD WHICH CM WILL PROVIDE. D/C PLAN: HOME SELF-CARE, OR SON TO TRANSPORT PCP: MARY ANN RHODES
--- NOTE | 2020-07-10 11:19 | P.DS_ITS ---
DS: Providers Provider Date of Service: 07/10/20 Date of admission: 07/09/20 09:35 Primary care physician: Juan Antonio Driver [facility]- Consults: 07/09/20 10:45 Consult to Hematology / Oncology Routine Consulting Provider: Rayray Nelson Reason for consultation: extensive superficial thrombophlebitis, suspected myeloproliferative disord DS: Diagnosis Discharge Diagnosis (1) Erythrocytosis: Status: Acute (2) Superficial thrombophlebitis of leg: Status: Acute DS: Medications Discharge Medications Home Medications: Home Medications Medication Instructions Recorded Confirmed metoprolol succinate 100 mg 100 mg PO DAILY 12/27/19 07/09/20 tablet,extended release 24 hr cephalexin 1 cap PO QID 07/09/20 07/09/20 Previous Rx's Medication Instructions Recorded lisinopril 40 mg tablet 40 mg PO DAILY #90 cap 05/15/20 tadalafil 5 mg tablet 5 mg PO DAILY #90 cap 05/15/20 doxycycline hyclate 100 mg PO BID 7 Days #14 tab 07/03/20 amlodipine 10 mg tablet 10 mg PO DAILY #90 tab 07/08/20 DS: Summary Hospital Course Hospital Course: This is a 59 year old male who presented to the emergency department July 03 with right leg swelling and pain. At that time ultrasound was negative for DVT and he was diagnosed with cellulitis and discharged home with cephalexin and doxycycline. His symptoms did not improve so he returned to the emergency department on July 09, repeat ultrasound showed acute clot within the greater saphenous vein from proximal to distal calf suggestive of superficial thrombophlebitis as well as multiple large groin lymph nodes. He was noted to have elevated hemoglobin of 20 and platelets of 450. He was admitted to medical-surgical floor and evaluated by Hematology who recommended CT scan of the abdomen given right inguinal adenopathy, as well as therapeutic phlebotomy and anticoagulation with xarelto. CT scan showed no adenopathy and normal appearing kidneys. He underwent therapeutic phlebotomy with improvement of H/H. His redness, pain and swelling of the right leg is improving. He will be discharged home with xarelto 15mg bid for total 21 days followed by 20 mg daily. Benefits and risk of anticoagulation have been discussed. He should follow up with Dr. Nelson, an appointment has been scheduled. Jak2 pending at time of discharge. Time Spent with Patient Time attestation: Total time spent providing and/or coordinating discharge services: Discharge coordination time: Greater than 30 minutes Physical Exam Vital Signs: Vital Signs: Last Vital Signs Temp 97.3 F 07/10/20 07:54 Pulse 77 07/10/20 07:54 Resp 16 07/10/20 07:54 BP 144/82 H 07/10/20 08:16 Pulse Ox 98 07/10/20 07:54 Body Mass Index 20.7 Const: Nutritional Appearance: well nourished Orientation/consciousness: patient oriented x3 HENMT: Head: Yes normocephalic and Yes atraumatic Eyes: Sclerae: sclerae normal Resp: Effort & Inspection: normal respiratory effort and no respiratory distress Auscultation: clear to auscultation bilaterally Cardio: Rate: regular rate Rhythm: regular rhythm Skin: Other: right leg mild erythema Neuro: General: patient oriented x3 Cranial nerves: Yes CN's II-XII intact bilaterally and Yes Bilaterally intact EOM present Extrem: General: Yes normal to inspection DS: Data Data Completed and Pending Labs on day of discharge: Laboratory Results - last 24 hr 07/09/20 07/09/20 07/10/20 09:24 14:59 08:40 WBC 10.7 RBC 5.28 Hgb 17.6 Hct 50.6 MCV 95.8 MCH 33.3 H MCHC 34.8 RDW 14.6 Plt Count 387 MPV 10.2 Absolute Nucleated RBC 0.000 Nucleated RBC % (auto) 0.0 Lactate Dehydrogenase 178 Pre Ther Phlebot Hgb TNP Pre Ther Phlebot Hct TNP Therapeutic Phlebotomy Phlebotomy Performed Preliminary micro results at discharge 07/09/20 07:39 Blood Culture - Preliminary Blood - Venous No growth after 24 hours. 07/09/20 07:33 Blood Culture - Preliminary Blood - Venous No growth after 24 hours. Discharge Plan Discharge Patient Disposition: Home, Self-Care Discharge Diagnosis: Superficial thrombophlebitis Erythrocytosis Referrals: Juan Antonio Driver FNP-[facility] [Primary Care Provider] - 1 Week Rayray Nelson MD [Physician] - 1 Week Discharge Medications: New Xarelto 15 mg tablet 15 mg PO BID 20 Days Qty: 40 RF: 0 Xarelto 20 mg tablet 20 mg PO DAILY 30 Days Qty: 30 RF: 0 Continued tadalafil 5 mg tablet 5 mg PO DAILY Qty: 90 RF: 0 lisinopril 40 mg tablet 40 mg PO DAILY Qty: 90 RF: 2 amlodipine 10 mg tablet 10 mg PO DAILY Qty: 90 RF: 1 metoprolol succinate 100 mg tablet extended release 24 hr 100 mg PO DAILY RF: 0 Discontinued doxycycline hyclate 100 mg tablet 100 mg PO BID 7 Days Qty: 14 RF: 0 cephalexin 500 mg capsule 1 cap PO QID RF: 0 Activity on Discharge: As tolerated Stand Alone Forms: Patient Portal Discharge page Care Plan Goals: See below Health Concerns: Erythrocytosis Superficial thrombophlebitis Plan of Treatment: Please follow up with Dr. Nelson from hematology You have been started on a blood thinner, xarelto. Please take 15 mg twice daily for 20 more days and then start 20 mg daily. Call your PCP to schedule a follow up appointment. Monitor for signs of bleeding. Assessment: See discharge summary
--- NOTE | 2020-07-10 12:08 | MHC.CM.PN ---
PT DISCHARGING HOME SELF-CARE INSTRUCTIONS TO FOLLOW-UP W/DR CASTILLO IN 1 WK, SON IS HERE FOR TRANSPORT.
== END 2020-07-10 12:34 | disposition home or self-care (01) ==
LOC: HO.ED 09:23 → HO.EDOVER 12:26 → HO.S3 16:34
PROVIDERS: Physician Assistant Medical; Admitting Provider Internal Medicine; Emergency Provider Emergency Medicine; PCP Nurse Practitioner Family; Visit Provider Family Medicine
DX: D75.1 Secondary polycythemia (principal); I80.01 Phlebitis and thrombophlebitis of superficial vessels of right lower extremity; R59.0 Localized enlarged lymph nodes; R00.8 Other abnormalities of heart beat; I49.3 Ventricular premature depolarization; I10 Essential (primary) hypertension; E78.5 Hyperlipidemia, unspecified; F17.210 Nicotine dependence, cigarettes, uncomplicated; Z20.822 Contact with and (suspected) exposure to COVID-19; Z88.5 Allergy status to narcotic agent; Z79.899 Other long term (current) drug therapy
CPT/HCPCS: 36415; 74178; 80048; 80076; 81270; 83605; 83615; 83735; 85014; 85018; 85025; 85027; 85610; 85730; 87040; 87635; 93971; 96361; 96365; 96368; 99195; 99218; 99284; 99285; J2543; J3370; Q9967

== ENCOUNTER 2020-07-16 11:58 | Outpatient (REF) | payer OTHER, SELFPAY | END 2020-07-16 11:59 | disposition home or self-care (01) | LOC: HO.BBR 11:58 | PROVIDERS: Visit Provider Internal Medicine Medical Oncology | DX: D75.1 Secondary polycythemia (principal) | CPT/HCPCS: 36415; 85018; 99195 ==

== ENCOUNTER → 2020-07-16 12:47 | Outpatient (BNV) | payer OTHER, SELFPAY | PROVIDERS: PCP Nurse Practitioner Family; Visit Provider Internal Medicine Medical Oncology | DX: D75.1 Secondary polycythemia (principal) | CPT/HCPCS: 99204; 99213; 99214 ==

== ENCOUNTER 2020-07-25 14:01 | Outpatient (REF) | payer OTHER, SELFPAY | END 2020-07-25 14:02 | disposition home or self-care (01) | LOC: HO.BBR 14:01 | PROVIDERS: Visit Provider Internal Medicine Medical Oncology | DX: D75.1 Secondary polycythemia (principal) | CPT/HCPCS: 85018; 99195 ==

== ENCOUNTER 2020-07-29 06:31 | Outpatient (REF) | payer OTHER, SELFPAY ==
[2020-07-29 11:47] LABS: Alanine Aminotransferase 26 U/L (0-40); Albumin Level 3.6 g/dL (3.5-5.0); Alkaline Phosphatase 65 U/L (39-117); Anion Gap 16 (12-20); Aspartate Amino Transferase 35 U/L (5-37); Bilirubin Total 0.6 mg/dL (0.0-1.0); Blood Urea Nitrogen 8 mg/dL (9-16); Calcium 8.4 mg/dL (8.4-10.2); Carbon Dioxide 23 mmol/L (22-29); Chloride 108 mmol/L (96-108); Estimated Glomerular Filt Rate > 60; Glucose Fasting 80 mg/dL (60-99); Potassium 4.5 mmol/L (3.3-5.1); Sodium 142 mmol/L (135-145)
== END 2020-07-29 06:32 | disposition home or self-care (01) ==
LOC: HO.HMGCLDS 06:31
PROVIDERS: PCP Nurse Practitioner Family; Visit Provider Nurse Practitioner Family
DX: D75.1 Secondary polycythemia (principal)
CPT/HCPCS: 36415; 80053

== ENCOUNTER 2020-08-02 13:56 | Outpatient (REF) | payer OTHER, SELFPAY | END 2020-08-02 13:57 | disposition home or self-care (01) | LOC: HO.BBR 13:56 | PROVIDERS: Visit Provider Internal Medicine Medical Oncology | DX: D75.1 Secondary polycythemia (principal) | CPT/HCPCS: 36415; 85018; 99195 ==

== ENCOUNTER 2020-08-19 13:51 | Outpatient (REF) | payer OTHER, SELFPAY | END 2020-08-19 13:52 | disposition home or self-care (01) | LOC: HO.BBR 13:51 | PROVIDERS: Visit Provider Internal Medicine Medical Oncology | DX: D75.1 Secondary polycythemia (principal) | CPT/HCPCS: 36415; 85018; 99195 ==

== ENCOUNTER 2020-08-28 14:53 | Outpatient (REF) | payer OTHER, SELFPAY | END 2020-08-28 14:54 | disposition home or self-care (01) | LOC: HO.BBR 14:53 | PROVIDERS: PCP Nurse Practitioner Family; Visit Provider Internal Medicine Medical Oncology | DX: D75.1 Secondary polycythemia (principal) | CPT/HCPCS: 85018 ==

== ENCOUNTER 2020-09-04 14:55 | Outpatient (REF) | payer OTHER, SELFPAY | END 2020-09-04 14:56 | disposition home or self-care (01) | LOC: HO.BBR 14:55 | PROVIDERS: PCP Nurse Practitioner Family; Visit Provider Internal Medicine Medical Oncology | DX: D75.1 Secondary polycythemia (principal) | CPT/HCPCS: 36415; 85018 ==

== ENCOUNTER 2020-09-11 15:21 | Outpatient (REF) | payer OTHER, SELFPAY | END 2020-09-11 15:22 | disposition home or self-care (01) | LOC: HO.BBR 15:21 | PROVIDERS: Visit Provider Internal Medicine Medical Oncology | DX: D75.1 Secondary polycythemia (principal) | CPT/HCPCS: 85014; 85018; 99195 ==

== ENCOUNTER 2020-11-01 14:57 | Outpatient (REF) | payer OTHER, SELFPAY ==
[2020-11-01 15:10] LABS: MANUAL DIFF FLAG NO
[2020-11-01 15:12] LABS: Basophils Absolute Auto 0.2 X10*3/uL (0.0-0.2); Basophils Percent Auto 1.6 % (0-2); Eosinophils Absolute Auto 0.4 X10*3/uL (0.0-0.4); Eosinophils Percent Auto 2.5 % (0-4); Hematocrit 43.8 % (42-52); Hemoglobin 13.5 g/dl (14.0-18.0); Imm Gran Abs Auto 0.28 X10*3/uL (0.00-0.03); Imm Gran Pct Auto 1.9 % (0.0-0.4); Lymphocytes Absolute Auto 1.5 X10*3/uL (1.2-4.9); Lymphocytes Percent Auto 10.3 % (20-40); Mean Corpuscular HGB Conc 30.8 g/dl (31.0-36.0); Mean Corpuscular Hemoglobin 23.1 pg (27.0-33.0); Monocytes Absolute Auto 1.4 X10*3/uL (0.1-1.2); Monocytes Percent Auto 9.6 % (2-11); Neutrophils Absolute Auto 11.1 X10*3/uL (2.0-8.3); Neutrophils Percent Auto 74.1 % (45-73); Platelet Count 964 X10*3/uL (160-400); Red Blood Count 5.84 X10*6/uL (4.60-5.80); Red Cell Distribution Width 19.3 % (11.0-16.0)
[2020-11-01 15:36] LABS: Alanine Aminotransferase 18 U/L (0-40); Albumin Level 4.1 g/dL (3.5-5.0); Alkaline Phosphatase 54 U/L (39-117); Anion Gap 12 (12-20); Aspartate Amino Transferase 27 U/L (5-37); Bilirubin Total 0.8 mg/dL (0.0-1.0); Blood Urea Nitrogen 14 mg/dL (9-16); Calcium 9.2 mg/dL (8.4-10.2); Carbon Dioxide 24 mmol/L (22-29); Chloride 109 mmol/L (96-108); Estimated Glomerular Filt Rate > 60; Glucose Random 88 mg/dL (60-115); Potassium 4.2 mmol/L (3.3-5.1); Sodium 141 mmol/L (135-145); Total Protein 6.4 g/dL (6.5-8.0)
== END 2020-11-01 14:58 | disposition home or self-care (01) ==
LOC: HO.BBR 14:57
PROVIDERS: Visit Provider Internal Medicine Medical Oncology
DX: D75.1 Secondary polycythemia (principal)
CPT/HCPCS: 36415; 80053; 85018; 85025

== ENCOUNTER 2020-12-03 14:49 | Outpatient (REF) | payer OTHER, SELFPAY ==
[2020-12-03 15:05] LABS: MANUAL DIFF FLAG NO
[2020-12-03 15:07] LABS: Basophils Absolute Auto 0.3 X10*3/uL (0.0-0.2); Basophils Percent Auto 1.8 % (0-2); Eosinophils Absolute Auto 0.3 X10*3/uL (0.0-0.4); Hematocrit 45.7 % (42-52); Hemoglobin 14.2 g/dl (14.0-18.0); Imm Gran Abs Auto 0.23 X10*3/uL (0.00-0.03); Imm Gran Pct Auto 1.5 % (0.0-0.4); Lymphocytes Absolute Auto 1.4 X10*3/uL (1.2-4.9); Lymphocytes Percent Auto 8.8 % (20-40); Mean Corpuscular HGB Conc 31.1 g/dl (31.0-36.0); Mean Corpuscular Hemoglobin 22.8 pg (27.0-33.0); Mean Corpuscular Volume 73.4 fL (80-98); Mean Platelet Volume 9.8 fL (9.4-12.4); Monocytes Absolute Auto 1.4 X10*3/uL (0.1-1.2); Neutrophils Absolute Auto 11.8 X10*3/uL (2.0-8.3); Neutrophils Percent Auto 76.9 % (45-73); Platelet Count 872 X10*3/uL (160-400); Red Blood Count 6.23 X10*6/uL (4.60-5.80); Red Cell Distribution Width 21.7 % (11.0-16.0); White Blood Count 15.4 X10*3/uL (4.8-10.8)
[2020-12-03 15:53] LABS: Alanine Aminotransferase 19 U/L (0-40); Albumin Level 4.1 g/dL (3.5-5.0); Alkaline Phosphatase 48 U/L (39-117); Anion Gap 12 (12-20); Aspartate Amino Transferase 31 U/L (5-37); Bilirubin Total 1.1 mg/dL (0.0-1.0); Blood Urea Nitrogen 10 mg/dL (9-16); Calcium 9.5 mg/dL (8.4-10.2); Carbon Dioxide 25 mmol/L (22-29); Chloride 107 mmol/L (96-108); Estimated Glomerular Filt Rate > 60; Glucose Random 91 mg/dL (60-115); Potassium 4.6 mmol/L (3.3-5.1); Sodium 139 mmol/L (135-145); Total Protein 6.5 g/dL (6.5-8.0)
== END 2020-12-03 14:50 | disposition home or self-care (01) ==
LOC: HO.BBR 14:49
PROVIDERS: Visit Provider Internal Medicine Medical Oncology
DX: D75.1 Secondary polycythemia (principal)
CPT/HCPCS: 36415; 80053; 85014; 85018; 85025; 99195

== ENCOUNTER 2020-12-31 14:48 | Outpatient (REF) | payer OTHER, SELFPAY ==
[2020-12-31 14:59] LABS: MANUAL DIFF FLAG NO
[2020-12-31 15:02] LABS: Basophils Absolute Auto 0.3 X10*3/uL (0.0-0.2); Basophils Percent Auto 1.7 % (0-2); Eosinophils Absolute Auto 0.4 X10*3/uL (0.0-0.4); Eosinophils Percent Auto 2.4 % (0-4); Hemoglobin 12.9 g/dl (14.0-18.0); Imm Gran Abs Auto 0.28 X10*3/uL (0.00-0.03); Imm Gran Pct Auto 1.8 % (0.0-0.4); Lymphocytes Absolute Auto 1.6 X10*3/uL (1.2-4.9); Lymphocytes Percent Auto 10.8 % (20-40); Mean Corpuscular HGB Conc 31.5 g/dl (31.0-36.0); Mean Corpuscular Hemoglobin 23.1 pg (27.0-33.0); Mean Corpuscular Volume 73.3 fL (80-98); Mean Platelet Volume 9.3 fL (9.4-12.4); Monocytes Absolute Auto 1.4 X10*3/uL (0.1-1.2); Monocytes Percent Auto 9.3 % (2-11); Neutrophils Absolute Auto 11.2 X10*3/uL (2.0-8.3); Platelet Count 823 X10*3/uL (160-400); Red Blood Count 5.59 X10*6/uL (4.60-5.80); Red Cell Distribution Width 20.2 % (11.0-16.0); White Blood Count 15.2 X10*3/uL (4.8-10.8)
[2020-12-31 15:20] LABS: Alanine Aminotransferase 20 U/L (0-40); Albumin Level 3.9 g/dL (3.5-5.0); Alkaline Phosphatase 44 U/L (39-117); Anion Gap 12 (12-20); Aspartate Amino Transferase 27 U/L (5-37); Bilirubin Total 0.6 mg/dL (0.0-1.0); Blood Urea Nitrogen 10 mg/dL (9-16); Calcium 8.5 mg/dL (8.4-10.2); Carbon Dioxide 24 mmol/L (22-29); Chloride 106 mmol/L (96-108); Estimated Glomerular Filt Rate > 60; Glucose Random 87 mg/dL (60-115); Sodium 138 mmol/L (135-145)
== END 2020-12-31 14:49 | disposition home or self-care (01) ==
LOC: HO.BBR 14:48
PROVIDERS: PCP Nurse Practitioner Family; Visit Provider Internal Medicine Medical Oncology
DX: D75.1 Secondary polycythemia (principal)
CPT/HCPCS: 36415; 80053; 85018; 85025; 99195

== ENCOUNTER 2021-02-05 14:54 | Outpatient (REF) | payer OTHER, SELFPAY ==
[2021-02-05 15:04] LABS: Basophils Absolute Auto 0.3 X10*3/uL (0.0-0.2); Basophils Percent Auto 1.8 % (0-2); Eosinophils Absolute Auto 0.3 X10*3/uL (0.0-0.4); Eosinophils Percent Auto 1.9 % (0-4); Hematocrit 43.6 % (42.0-52.0); Hemoglobin 13.5 g/dl (14.0-18.0); Imm Gran Abs Auto 0.33 X10*3/uL (0.00-0.03); Imm Gran Pct Auto 2.1 % (0.0-0.4); Lymphocytes Percent Auto 12.7 % (20-40); MANUAL DIFF FLAG SCAN; Mean Corpuscular Hemoglobin 22.6 pg (27.0-33.0); Mean Platelet Volume 9.8 fL (9.4-12.4); Monocytes Absolute Auto 1.5 X10*3/uL (0.1-1.2); Monocytes Percent Auto 9.6 % (2-11); Neutrophils Absolute Auto 11.5 x10*3/uL (2.0-8.3); Neutrophils Percent Auto 71.9 % (45-73); Platelet Count 930 X10*3/uL (160-400); Red Blood Count 5.97 X10*6/uL (4.60-5.80); Red Cell Distribution Width 18.2 % (11.0-16.0); SCAN SMEAR FLAG 1
[2021-02-05 15:28] LABS: SLIDE REVIEW VERIFIED
[2021-02-05 15:29] LABS: Alanine Aminotransferase 23 U/L (0-40); Alkaline Phosphatase 52 U/L (39-117); Anion Gap 13 (12-20); Aspartate Amino Transferase 33 U/L (5-37); Bilirubin Total 0.8 mg/dL (0.0-1.0); Blood Urea Nitrogen 10 mg/dL (9-16); Calcium 9.3 mg/dL (8.4-10.2); Carbon Dioxide 24 mmol/L (22-29); Chloride 107 mmol/L (96-108); Estimated Glomerular Filt Rate > 60; Glucose Random 82 mg/dL (60-115); Potassium 4.2 mmol/L (3.3-5.1); Sodium 140 mmol/L (135-145); Total Protein 6.5 g/dL (6.5-8.0)
== END 2021-02-05 14:55 | disposition home or self-care (01) ==
LOC: HO.BBR 14:54
PROVIDERS: Visit Provider Internal Medicine Medical Oncology
DX: D75.1 Secondary polycythemia (principal)
CPT/HCPCS: 36415; 80053; 85014; 85018; 85025; 99195

== ENCOUNTER 2021-03-04 15:47 | Outpatient (REF) | payer OTHER, SELFPAY ==
--- NOTE | ~2021-03-04 | XR_ITS ---
EXAMINATION: XR PRE-MRI SCREENING ORBITS CLINICAL INFORMATION: BB right eyelid. COMPARISON: None TECHNIQUE: 3 views of the orbits are obtained. FINDINGS: There is a BB which appears to be deep in the right orbit. The paranasal sinuses are unremarkable. XR/XR pre mri screening IMPRESSION: BB in right orbit.
== END 2021-03-04 15:48 | disposition home or self-care (01) ==
LOC: HO.MRI 15:47
PROVIDERS: PCP Nurse Practitioner Family; Visit Provider Nurse Practitioner Family
DX: Z13.89 Encounter for screening for other disorder (principal)

== ENCOUNTER 2021-03-13 14:44 | Outpatient (REF) | payer OTHER, SELFPAY ==
[2021-03-13 15:01] LABS: Basophils Absolute Auto 0.3 X10*3/uL (0.0-0.2); Basophils Percent Auto 1.9 % (0-2); Eosinophils Absolute Auto 0.3 X10*3/uL (0.0-0.4); Eosinophils Percent Auto 1.6 % (0-4); Hematocrit 43.6 % (42.0-52.0); Hemoglobin 13.5 g/dl (14.0-18.0); Imm Gran Pct Auto 2.8 % (0.0-0.4); Lymphocytes Absolute Auto 1.6 X10*3/uL (1.2-4.9); Lymphocytes Percent Auto 9.1 % (20-40); MANUAL DIFF FLAG SCAN; Mean Corpuscular Hemoglobin 22.1 pg (27.0-33.0); Mean Corpuscular Volume 71.5 fL (80.0-98.0); Mean Platelet Volume 10.1 fL (9.4-12.4); Monocytes Absolute Auto 1.6 X10*3/uL (0.1-1.2); Monocytes Percent Auto 8.9 % (2-11); Neutrophils Absolute Auto 13.3 x10*3/uL (2.0-8.3); Neutrophils Percent Auto 75.7 % (45-73); Platelet Count 897 X10*3/uL (160-400); Red Cell Distribution Width 19.6 % (11.0-16.0); SCAN SMEAR FLAG 1; White Blood Count 17.6 X10*3/uL (4.8-10.8)
[2021-03-13 15:16] LABS: Alanine Aminotransferase 26 U/L (0-40); Albumin Level 3.9 g/dL (3.5-5.0); Alkaline Phosphatase 46 U/L (39-117); Anion Gap 13 (12-20); Aspartate Amino Transferase 29 U/L (5-37); Bilirubin Total 0.8 mg/dL (0.0-1.0); Blood Urea Nitrogen 11 mg/dL (9-16); Calcium 9.3 mg/dL (8.4-10.2); Carbon Dioxide 24 mmol/L (22-29); Chloride 108 mmol/L (96-108); Estimated Glomerular Filt Rate > 60; Glucose Random 82 mg/dL (60-115); Potassium 4.5 mmol/L (3.3-5.1); Sodium 140 mmol/L (135-145); Total Protein 6.2 g/dL (6.5-8.0)
[2021-03-13 19:37] LABS: SLIDE REVIEW VERIFIED
== END 2021-03-13 14:45 | disposition home or self-care (01) ==
LOC: HO.BBR 14:44
PROVIDERS: Visit Provider Internal Medicine Medical Oncology
DX: D75.1 Secondary polycythemia (principal)
CPT/HCPCS: 36415; 80053; 85025

== ENCOUNTER 2021-03-16 15:06 | Emergency (ER) | payer OTHER, SELFPAY ==
--- NOTE | ~2021-03-16 | XR_ITS ---
EXAMINATION: CHEST AND RIGHT HIP WITH PELVIS CLINICAL INFORMATION: Medical clearance for possible hip fracture COMPARISON: None TECHNIQUE: Chest 2 views. AP pelvis and right hip 3 views. FINDINGS: Chest: Lungs are well-expanded and clear of acute process. Heart size and pulmonary vascularity is normal. No gross bony abnormality seen. AP pelvis and right hip: There is normal symmetry of bilateral hip joints and SI joints. No visible acute fracture, dislocation or lytic process seen. There are multiple phleboliths seen throughout the pelvis. There are surgical nathaniel in the scrotum likely from vasectomy. XR/XR chest 1V IMPRESSION: Unremarkable chest exam. Unremarkable AP pelvis and right hip exam.
--- NOTE | ~2021-03-16 | CT_ITS ---
EXAMINATION: CT HIP WITHOUT CONTRAST, RIGHT CLINICAL INFORMATION: Right hip pain. Question fracture. COMPARISON: X-ray right hip 03/26/2021 TECHNIQUE: Axial imaging. Sagittal and coronal reconstructions. This CT examination was performed using dose optimization techniques as appropriate, variously including the following: *Automated exposure control *Adjustment of mA and/or kV according to patient size (this includes techniques or standardized protocols for targeted exams where dose is matched to indication/reason for exam; i.e. extremities or head) *Use of iterative reconstruction technique DLP: 194 mGy-cm FINDINGS: The femoral head is well-seated in the acetabulum. Mild to moderate right hip joint space narrowing, acetabular sclerosis, acetabular osteophytes. There is an ossification at the acetabular rim, which appears to have corticated margins, suggestive of a nonacute process. This could represent an os acetabuli or represent sequela of old trauma. No acute fracture is otherwise identified. Pubic rami are intact. Mild symphysis pubis degeneration. No significant hip joint effusion is identified by CT. The partially visualized intrapelvic structures, demonstrate any acute findings. No groin lymphadenopathy. CT/CT hip RT wo con IMPRESSION: 1. Mild to moderate right hip arthritis. Ossification adjacent to the lateral acetabulum, appearance more suggestive of a nonacute process, and could represent an os acetabuli or sequela for remote trauma.. 2. No CT evidence of acute fracture or dislocation is identified. If there is clinical concern for radiographically occult fracture, further evaluation with MRI can be obtained.
--- NOTE | ~2021-03-16 | CT_ITS ---
EXAMINATION: CT BRAIN AND CT CERVICAL SPINE WITHOUT CONTRAST. CLINICAL INFORMATION: Status post fall on blood thinners. COMPARISON: None TECHNIQUE: 5 mm thin axial and reformatted 2 mm thin sagittal coronal images of brain were obtained. Subsequently axial 3 mm thin and reformatted 2 mm thin sagittal coronal images of cervical spine were obtained DLP [id number]. This CT examination was performed using dose optimization technique as appropriate, variously including the following: Automated exposure control Adjustment of MA and/or KV according to patient size(this includes techniques or standardized protocols for targeted exams where dose is matched to indication/reason for exam; extremities or head. Use of iterative reconstruction techniques. FINDINGS: Brain: There is no acute intra-axial, extra-axial bleed, masses or midline shift. There is no acute infarction evolution. There is no edema. The lateral ventricles are symmetrical in size and configuration without enlargement. Bone windows reveal no calvarial abnormality. There is no scalp soft tissue abnormality. Bilateral paranasal sinuses and mastoid air cells are well-aerated. Incidental finding of dense radiopaque metallic foreign body in the right intraconal orbit. Cervical spine: On sagittal reconstructed images there is reversal of cervical lordosis. There is loss of C5-C6 and C6-C7 disc heights with ventral and posterior spondylosis. Rest the disc heights are normal. There is grade 1 anterolisthesis C3 over C4. Rest of the vertebral alignment is normal. The craniovertebral junction and the C1-C2 alignment is normal. There is moderate bilateral C2-C3, right C3-C4 and C4-C5 facet joint arthropathy. The prevertebral and paravertebral soft tissues are normal. The airway is widely patent. The lung apices are clear. Visualized thyroid, submandibular and parotid glands are unremarkable. CT/CT cervical spine wo con IMPRESSION: No acute intracranial abnormality seen. There is no acute fracture, dislocation or subluxation in cervical spine. Degenerative disc disease and facet joint arthropathy as described above. There is reversal of cervical lordosis likely spasm. Grade 1 anterolisthesis C3 over C4 is noted.
--- NOTE | ~2021-03-16 | XR_ITS ---
EXAMINATION: CHEST AND RIGHT HIP WITH PELVIS CLINICAL INFORMATION: Medical clearance for possible hip fracture COMPARISON: None TECHNIQUE: Chest 2 views. AP pelvis and right hip 3 views. FINDINGS: Chest: Lungs are well-expanded and clear of acute process. Heart size and pulmonary vascularity is normal. No gross bony abnormality seen. AP pelvis and right hip: There is normal symmetry of bilateral hip joints and SI joints. No visible acute fracture, dislocation or lytic process seen. There are multiple phleboliths seen throughout the pelvis. There are surgical nathaniel in the scrotum likely from vasectomy. XR/XR hip RT w [id number] IMPRESSION: Unremarkable chest exam. Unremarkable AP pelvis and right hip exam.
[2021-03-16 15:23] VITALS: BP 124/68; PULSE 82; RESP 18; TEMP 36.7; O2SAT 98; BMI 21.4
[2021-03-16 15:25] VITALS: BP 105/63; PULSE 90; O2SAT 95
[2021-03-16] MEDS: Morphine Sulfate 4 MG/ML CARTRIDGE IM (15:47)
[2021-03-16] MEDS: Ondansetron ODT 4 MG TAB.RAPDIS TRANSLINGU (15:47)
--- NOTE | 2021-03-16 16:13 | ED.FALL ---
HPI - Fall General Chief Complaint: Fall <RACHAEL Leary - Last Filed: 03/16/21 18:25> Stated Complaint: r sided hip fitzgerald, fell <RACHAEL Leary - Last Filed: 03/16/21 18:25> Time Seen by Provider: 03/16/21 15:25 <RACHAEL Leary - Last Filed: 03/16/21 18:25> Source: patient and EMS <RACHAEL Leary - Last Filed: 03/16/21 18:25> Mode of arrival: EMS <RACHAEL Leary - Last Filed: 03/16/21 18:25> Limitations: no limitations <RACHAEL Leary - Last Filed: 03/16/21 18:25> History of Present Illness HPI Narrative: 60-year-old male with a past medical history of PVCs, hypertension, PVD, hyperlipidemia, superficial thrombophlebitis of leg who is currently on Eliquis presenting to the ED with complaints of a mechanical fall that occurred prior to arrival right outside of his house. He reports that it is slippery in the driveway and he was applying salt to the driveway although he believes he missed an area and he slipped and fell landing on his right hip and since then has been having pain to the right hip. He denies head injury loss of consciousness or any other injuries complaints or concerns at this time. 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) <RACHAEL Leary - Last Filed: 03/16/21 18:25> Fall from: standing <RACHAEL Leary Last Filed: 03/16/21 18:25> Fall witnessed: no <RACHAEL Leary Last Filed: 03/16/21 18:25> Place fall occurred: home (Although outdoors) <RACHAEL Leary - Last Filed: 03/16/21 18:25> Loss of consciousness: none <RACHAEL Leary Last Filed: 03/16/21 18:25> Prolonged down time: no <RACHAEL Leary Last Filed: 03/16/21 18:25> Symptoms prior to fall: none <RACHAEL Leary - Last Filed: 03/16/21 18:25> Context: tripped/slipped <RACHAEL Leary - Last Filed: 03/16/21 18:25> Location of injury: pelvis (Right hip) <RACHAEL Leary - Last Filed: 03/16/21 18:25> Severity: severe <RACHAEL Leary - Last Filed: 03/16/21 18:25> Severity scale (1-10): >10 <RACHAEL Leary - Last Filed: 03/16/21 18:25> Quality: aching <RACHAEL Leary - Last Filed: 03/16/21 18:25> Associated symptoms (after fall): other (Only pain to the right hip otherwise no other pain) <RACHAEL Leary Last Filed: 03/16/21 18:25> Related Data Home Medications: Previous Rx's Medication Instructions Recorded rivaroxaban 20 mg tablet 20 mg PO DAILY 30 Days #30 tab 07/30/20 metoprolol succinate 100 mg 100 mg PO DAILY #90 tab 10/01/20 tablet,extended release 24 hr rivaroxaban 10 mg tablet 10 mg PO DAILY #30 tab 12/26/20 amlodipine 10 mg tablet 10 mg PO DAILY #90 tab 01/13/21 lisinopril 40 mg tablet 40 mg PO DAILY #90 cap 02/15/21 tizanidine 4 mg tablet 4 mg PO BEDTIME PRN 20 Days #20 tab 02/24/21 prednisone 50 mg tablet 50 mg PO DAILY 6 Days #6 tab 02/25/21 tadalafil 5 mg tablet 5 mg PO DAILY 90 Days #90 tab 03/04/21 oxycodone 5 mg tablet 5 mg PO Q6H PRN #14 tab 03/16/21 <RACHAEL Leary - Last Filed: 03/16/21 18:25> Allergies/Adverse Reactions: Allergies Allergy/AdvReac Type Severity Reaction Status Date / Time codeine [CODEINE] Allergy Unknown HIVES Verified 02/24/21 16:03 <RACHAEL Leary Last Filed: 03/16/21 18:25> Review of Systems Review of Systems: Constitutional : No Weight loss, No Fever, No Chills, No Night Sweats, No Fatigue, No Malaise ENT/Mouth : No Hearing loss, No Ear Pain, No Nasal Congestion, No Sinus Pain, No Hoarseness, No sore throat, No Rhinorrhea, No Swallowing Difficulty Eyes: No Eye Pain, No Swelling, No Redness, No Foreign Body, No Discharge, No Vision Changes Cardiovascular : No Chest Pain, No SOB, No Dyspnea on Exertion, No Orthopnea, No Edema, No Palpitations Respiratory : No Cough, No Sputum, No Wheezing, No Smoke Exposure, No Dyspnea Gastrointestinal : No Nausea, No Vomiting, No Diarrhea, No Constipation, No abdominal Pain, No Hematochezia, No Melena Genitourinary : no irregular bleeding, No Dysuria, No Urinary Frequency, No Hematuria, No Urinary Incontinence, No Urgency, No Flank Pain, No Urinary Flow Changes, No Hesitancy Musculoskeletal : + fall with Right hip joint pain, No Myalgias, No Joint Swelling Skin : No Skin Lesions, No rash Neuro : No Weakness, No Numbness, No Paresthesias, No Loss of Consciousness, No Dizziness, No Headache Psych : No Anxiety/Panic, No Depression, No SI/HI/AH/VH, No Social Issues, Heme/Lymph: No Bruising, No Bleeding,No Lymphadenopathy Endocrine : No Polyuria, No Polydipsia, No Temperature Intolerance <RACHAEL Leary - Last Filed: 03/16/21 18:25> Yes all other systems are reviewed and are negative <RACHAEL Leary - Last Filed: 03/16/21 18:25> [facility] Past Medical History Attestation statement: The following information was validated with the patient. <RACHAEL Leary - Last Filed: 03/16/21 18:25> Medical History: Medical History Bigeminy Dyslipidemia Erectile dysfunction Erythrocytosis Herniated disc HTN (hypertension) Proteinuria PVCs (premature ventricular contractions) PVD (peripheral vascular disease) Rosacea Superficial thrombophlebitis of leg Tachycardia Tobacco use <RACHAEL Leary - Last Filed: 03/16/21 18:25> Surgical History: Surgical History History of appendectomy No pertinent past surgical history <RACHAEL Leary - Last Filed: 03/16/21 18:25> Family History Family History: Family History Father No problems noted. Mother No problems noted. Sister No problems noted. Sister No problems noted. Son No problems noted. Brother No problems noted. Brother No problems noted. Brother No problems noted. Brother No problems noted. <RACHAEL Leary - Last Filed: 03/16/21 18:25> Social History Social History: Social History Housing: Apartment Alcohol intake: current Alcohol intake frequency: 0-2 drinks per day Alcohol type: beer Patient Tobacco Use Status: Current everyday Tobacco user Cigarettes Per Day: 10 e-Cigarette/Vaping Use: Never Used Second Hand Smoke Exposure: Yes Advance Directives: No Advance Directives Information Provided: No Advance Directives Date on File: 07/09/20 service: No Current occupational status: employed <RACHAEL Leary - Last Filed: 03/16/21 18:25> Physical Exam Vital Signs: Vital Signs: Last Vital Signs Temp 98.0 F 03/16/21 15:23 Pulse 82 03/16/21 15:23 Resp 18 03/16/21 16:50 BP 124/68 03/16/21 15:23 Pulse Ox 98 03/16/21 15:23 BMI result Body Mass Index 21.4 vital signs have been reviewed as normal and appeared to be correct. Blood pressure normal. Heart rate normal. Respiration rate normal. Temperature normal. Oxygen saturation normal. <RACHAEL Leary - Last Filed: 03/16/21 18:25> Vital Signs: Last Vital Signs Temp 98.0 F 03/16/21 15:23 Pulse 82 03/16/21 15:23 Resp 18 03/16/21 16:50 BP 124/68 03/16/21 15:23 Pulse Ox 98 03/16/21 15:23 BMI result Body Mass Index 21.4 <RACHAEL Meredith - Last Filed: 03/16/21 19:10> Appearance: Alert. Oriented X3. No acute distress. Head: Normal external exam. Normocephalic. Atraumatic. No Young signs noted. No raccoon eyes noted Eyes: PERRLA. EOMI. Conjunctiva and sclera normal. Eyelids normal. ENT: EAC normal. TM's Normal. Pharynx normal. Uvula midline. Moist mucous membranes. No trismus noted. No drooling noted. No muffled voice noted. Neck: Normal inspection. Neck supple. FROM. No adenopathy. Thyroid Normal. No meningeal signs. No neck mass noted. Nontender. No signs of trauma. CVS: Normal heart rate and rhythm. Heart sound normal. Pulses normal throughout. No murmurs/rales/gallops. Respiratory: No respiratory distress. Painless inspiration. Breath sounds normal. No wheezes/rales/rhonchi noted. Chest nontender. No accessory muscle usage noted or decreased air movement noted. Abdomen: Soft and nontender. Bowel sounds normal in all 4 quadrants. No distention noted. No organomegaly noted. No visible injury noted. Back: No CVA tenderness. Full range of motion noted. No rashes/lesion/induration/fluctuance or signs of infection noted. Nontender. No signs of trauma. Skin: Skin warm and dry. Normal skin color. Normal skin turgor. No rashes/lesions/lacerations noted. Extremities: Patient moderate tenderness of patient to the right hip with limited range of motion due to pain. No obvious deformities. No obvious ligamentous or tendon injury noted to the right hip/pelvis. No abrasions noted. No lower extremity edema or calf tenderness is noted. Otherwise all of Extremities exhibit normal range of motion and nontender. Neuro: Oriented X 3. No motor deficit. No sensory deficit. Reflexes normal. No focal neuro deficits noted. Gait not tested at this time due to pain will re-evaluate after x-rays of right hip/pelvis. Vascular: + radial pulses/+ 2 distal pedal pulses/+2 dorsalis pedis b/l. Normal cap refill. No cyanosis noted to upper extremity nails and lower extremity toes nails. <RACHAEL Leary - Last Filed: 03/16/21 18:25> Course Course Course Narrative: 15:40pm - 60-year-old male with a past medical history of PVCs, hypertension, PVD, hyperlipidemia, superficial thrombophlebitis of leg who is currently on Eliquis presenting to the ED with complaints of a mechanical fall that occurred prior to arrival right outside of his house. He reports that it is slippery in the driveway and he was applying salt to the driveway although he believes he missed an area and he slipped and fell landing on his right hip and since then has been having pain to the right hip. He denies head injury loss of consciousness or any other injuries complaints or concerns at this time. Will obtain a CT scan of brain/cervical spine, chest x-ray for medical clearance if the patient does have a right hip fracture, right hip x-ray/pelvis. Provide 4 mg of Zofran and 4 mg of IM morphine and re-evaluate. <RACHAEL Leary - Last Filed: 03/16/21 18:25> Reevaluation(s) Reevaluation #1: CT scan of brain/cervical spine/chest x-ray/hip all negative for any acute processes only revealed chronic changes. Therefore at this time will DC home with symptomatic treatment instructions return if any new or worsening symptoms follow up with primary care provider. Patient understands agrees with this plan. <RACHAEL Leary - Last Filed: 03/16/21 18:25> Time: 18:22 <RACHAEL Leary - Last Filed: 03/16/21 18:25> Reevaluation #2: Patient able to ambulate with walker on his own. Son picked him up and will follow up with primary care provider <RACHAEL Meredith - Last Filed: 03/16/21 19:10> Time: 19:10 <RACHAEL Meredith - Last Filed: 03/16/21 19:10> MDM - Fall Medical Records Attestation: I reviewed the patient's medical records. <RACHAEL Leary - Last Filed: 03/16/21 18:25> Imaging Data Right hip/pelvis x-ray: Attestation: I personally reviewed and interpreted this imaging study as follows: <RACHAEL Leary Last Filed: 03/16/21 18:25> Radiologist's impression: FINDINGS: AP pelvis and right hip: There is normal symmetry of bilateral hip joints and SI joints. No visible acute fracture, dislocation or lytic process seen. There are multiple phleboliths seen throughout the pelvis. There are surgical nathaniel in the scrotum likely from vasectomy. XR/XR chest 1V IMPRESSION: ? Unremarkable AP pelvis and right hip exam.? <RACHAEL Leary - Last Filed: 03/16/21 18:25> Chest x-ray: Attestation: I personally reviewed and interpreted this imaging study as follows: <RACHAEL Leary - Last Filed: 03/16/21 18:25> Radiologist's impression: Chest: Lungs are well-expanded and clear of acute process. Heart size and pulmonary vascularity is normal. No gross bony abnormality seen. Unremarkable chest exam. <RACHAEL Leary - Last Filed: 03/16/21 18:25> CT scan of brain/cervical spine without contrast: Attestation: I personally reviewed and interpreted this imaging study as follows: <RACHAEL Leary - Last Filed: 03/16/21 18:25> Radiologist's impression: FINDINGS: Brain: There is no acute intra-axial, extra-axial bleed, masses or midline shift. There is no acute infarction evolution. There is no edema. The lateral ventricles are symmetrical in size and configuration without enlargement. Bone windows reveal no calvarial abnormality. There is no scalp soft tissue abnormality. Bilateral paranasal sinuses and mastoid air cells are well-aerated. Incidental finding of dense radiopaque metallic foreign body in the right intraconal orbit. Cervical spine: On sagittal reconstructed images there is reversal of cervical lordosis. There is loss of C5-C6 and C6-C7 disc heights with ventral and posterior spondylosis. Rest the disc heights are normal. There is grade 1 anterolisthesis C3 over C4. Rest of the vertebral alignment is normal. The craniovertebral junction and the C1-C2 alignment is normal. There is moderate bilateral C2-C3, right C3-C4 and C4-C5 facet joint arthropathy. The prevertebral and paravertebral soft tissues are normal. The airway is widely patent. The lung apices are clear. Visualized thyroid, submandibular and? parotid glands are unremarkable. CT/CT cervical spine wo con IMPRESSION: No acute intracranial abnormality seen. ? There is no acute fracture, dislocation or subluxation in cervical spine. Degenerative disc disease and facet joint arthropathy as described above. There is reversal of cervical lordosis likely spasm. Grade 1 anterolisthesis C3 over C4 is noted. <RACHAEL Leary - Last Filed: 03/16/21 18:25> CT scan of brain chest cervical spine without contrast: Attestation: I personally reviewed and interpreted this imaging study as follows: <RACHAEL Leary - Last Filed: 03/16/21 18:25> Radiologist's impression: FINDINGS: Brain: There is no acute intra-axial, extra-axial bleed, masses or midline shift. There is no acute infarction evolution. There is no edema. The lateral ventricles are symmetrical in size and configuration without enlargement. Bone windows reveal no calvarial abnormality. There is no scalp soft tissue abnormality. Bilateral paranasal sinuses and mastoid air cells are well-aerated. Incidental finding of dense radiopaque metallic foreign body in the right intraconal orbit. Cervical spine: On sagittal reconstructed images there is reversal of cervical lordosis. There is loss of C5-C6 and C6-C7 disc heights with ventral and posterior spondylosis. Rest the disc heights are normal. There is grade 1 anterolisthesis C3 over C4. Rest of the vertebral alignment is normal. The craniovertebral junction and the C1-C2 alignment is normal. There is moderate bilateral C2-C3, right C3-C4 and C4-C5 facet joint arthropathy. The prevertebral and paravertebral soft tissues are normal. The airway is widely patent. The lung apices are clear. Visualized thyroid, submandibular and? parotid glands are unremarkable. CT/CT head/brain wo con IMPRESSION: No acute intracranial abnormality seen. ? There is no acute fracture, dislocation or subluxation in cervical spine. Degenerative disc disease and facet joint arthropathy as described above. There is reversal of cervical lordosis likely spasm. Grade 1 anterolisthesis C3 over C4 is noted. <RACHAEL Leary - Last Filed: 03/16/21 18:25> CT scan of right hip without contrast: Attestation: I personally reviewed and interpreted this imaging study as follows: <RACHAEL Leary - Last Filed: 03/16/21 18:25> Radiologist's impression: FINDINGS: The femoral head is well-seated in the acetabulum. Mild to moderate right hip joint space narrowing, acetabular sclerosis, acetabular osteophytes. There is an ossification at the acetabular rim, which appears to have corticated margins, suggestive of a nonacute process. This could represent an os acetabuli or represent sequela of old trauma. No acute fracture is otherwise identified. Pubic rami are intact. Mild symphysis pubis degeneration. No significant hip joint effusion is identified by CT. The partially visualized intrapelvic structures, demonstrate any acute findings. No groin lymphadenopathy. CT/CT hip RT wo con IMPRESSION: 1. Mild to moderate right hip arthritis. Ossification adjacent to the lateral acetabulum, appearance more suggestive of a nonacute process, and could represent an os acetabuli or sequela for remote trauma.. ? 2. No CT evidence of acute fracture or dislocation is identified. If there is clinical concern for radiographically occult fracture, further evaluation with MRI can be obtained. <RACHAEL Leary - Last Filed: 03/16/21 18:25> Critical Care Time Critical Care Time Critical Care Time: Yes <RACHAEL Leary - Last Filed: 03/16/21 18:25> Total Critical Care Time: 60 <RACHAEL Leary - Last Filed: 03/16/21 18:25> Attestation: I personally attest to this time spent taking care of the patient <RACHAEL Leary Last Filed: 03/16/21 18:25> Discharge Plan Discharge Clinical Impression: Fall, Sprain of right hip <RACHAEL Leary Last Filed: 03/16/21 18:25> Patient Disposition: Home, Self-Care <RACHAEL Leary Last Filed: 03/16/21 18:25> Instructions: Fall Prevention for Older Adults (ED), Hip Sprain (ED) <RACHAEL Leary Last Filed: 03/16/21 18:25> Prescriptions: New oxycodone 5 mg tablet 5 mg PO Q6H PRN (Reason: pain) Qty: 14 RF: 0 No Action Xarelto 20 mg tablet 20 mg PO DAILY 30 Days Qty: 30 RF: 1 metoprolol succinate 100 mg tablet extended release 24 hr 100 mg PO DAILY Qty: 90 RF: 3 rivaroxaban 10 mg Tablet 10 mg PO DAILY Qty: 30 RF: 2 amlodipine 10 mg tablet 10 mg PO DAILY Qty: 90 RF: 1 lisinopril 40 mg tablet 40 mg PO DAILY Qty: 90 RF: 2 prednisone 50 mg tablet 50 mg PO DAILY 6 Days Qty: 6 RF: 0 tadalafil 5 mg tablet 5 mg PO DAILY 90 Days Qty: 90 RF: 0 tizanidine 4 mg tablet 4 mg PO BEDTIME PRN (Reason: muscle spasticity) 20 Days Qty: 20 RF: 0 <RACHAEL Leary - Last Filed: 03/16/21 18:25> Referrals: Juan Antonio Driver, PROGRAM OR PROJECT ADMINISTRATOR- [Primary Care Provider] - 2 days <RACHAEL Leary - Last Filed: 03/16/21 18:25> Print Language: Kazakh <RACHAEL Leary - Last Filed: 03/16/21 18:25>
[2021-03-16 16:50] VITALS: RESP 18
[2021-03-16] MEDS: oxyCODONE HCl Immed Release 5 MG TABLET PO (17:27)
[2021-03-16 18:00] VITALS: RESP 17
== END 2021-03-16 19:49 | disposition home or self-care (01) ==
PROVIDERS: Emergency Provider Internal Medicine; PCP Nurse Practitioner Family
DX: S73.101A Unspecified sprain of right hip, initial encounter (principal); S09.90XA Unspecified injury of head, initial encounter; R07.89 Other chest pain; M54.50 Low back pain, unspecified; M54.2 Cervicalgia; M25.551 Pain in right hip; W00.0XXA Fall on same level due to ice and snow, initial encounter; Y93.9 Activity, unspecified; Y92.9 Unspecified place or not applicable; Y99.9 Unspecified external cause status; Z79.899 Other long term (current) drug therapy
CPT/HCPCS: 70450; 71045; 72125; 73502; 73700; 96372; 99284; 99291; J2270

== ENCOUNTER 2021-03-25 14:43 | Outpatient (RCR) | payer OTHER, SELFPAY ==
--- NOTE | 2021-03-25 15:54 | MHC.PT.EP ---
[facility] [place] Office [place] Office [place] Office [address] Sai Brewster [address] [phone] F: [phone] F: [phone] F: [phone] F: [phone] Physical Therapy Plan of Care Date of Evaluation: Date of Surgery: n/a Diagnosis: pain in R hip Assessment: Patient is a 60 year old male presenting to PT with complaints of pain in his R hip. Pt reports onset of pain began 03/16/2021 due to slipping and falling on the ice. He presents today with impairments in pain, bruising, swelling, hip ROM, hip strength, and posture. 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 Clinical presentation today is most consistent with signs and sx associated with possible R hip contusion vs sprain and pt will benefit from skilled PT to address the following problems and impairments noted upon evaluation: pain, bruising, swelling, hip ROM, hip strength, and posture. These problems limit the patient with the following functional activities: sitting, ADLs, lifting, stair negotiation, and ambulation. The prescribed treatment plan of care is medically necessary. Co-morbidities of taking blood thinners, bigeminy, HTN, PVCs (premature ventricular contractions), Superficial thrombophlebitis of leg, tachycardia were identified and taken into considerations of plan of care. Pt was educated on HEP, role of PT, prognosis, POC. Frequency and Duration: The patient will be seen 2 x week x 4 weeks Short Term Goals: Pt will demonstrate pain at rest <5/10 in 3 weeks for improved QOL. Pt will demonstrate ability to sit upright without weight shifting to L with min to no pain in 3 weeks. Pt will demonstrate improved hip strength by 1/3 MMT for improved lumbopelvic stability. Pt will demonstrate R hip AROM equal B in 3 weeks with min to no pain. Retirement Goals: Pt will demonstrate improved LEFI score by 9 points in 5 weeks for improved functional mobility. Pt will demonstrate ability to negotiate stairs with min to no pain in 5 weeks for return to PLOF. Pt will demonstrate ability to ambulate with normal mechanics and min to no pain in 5 weeks for return to work and PLOF. Pt will demonstrate ability to complete all ADLs independently and with min to no pain in 5 weeks for return to PLOF. Treatment Plan: Modalities to reduce pain, spasms and effusion. Manual therapy to restore motion and function. Therapeutic exercise to improve strength and flexibility. Neuromuscular re-education for posture and balance. Therapeutic activities to return to functional activities of daily living. Electronically signed by: Dione Rabago, PT, DPT, ATC Please sign and return to therapist. Thank you for your referral.
--- NOTE | 2021-04-03 11:46 | MHC.PT.DC ---
[facility] [place] Office [place] Office [place] Office [address] 140 [facility] [phone] F: [phone] F: [phone] F: [phone] F: [phone] Physical Therapy Discharge Report Diagnosis: pain in R hip Date of Surgery: n/a Date of Evaluation: 03/25/21 Date of Discharge: 04/03/21 Treatments to Date: 1 Cancellations to Date: 0 No Shows to Date: 0 Discharge Status: Patient Elected to Stop Discharge Summary: Pt self d/c from skilled PT. Electronically signed by: Dione Rabago, PT, DPT, ATC Please sign and return to therapist. Thank you for your referral.
== END 2021-04-03 11:46 | disposition home or self-care (01) ==
LOC: HO.PTCHIC 14:43
PROVIDERS: Visit Provider Nurse Practitioner Family
DX: M25.551 Pain in right hip (principal)
CPT/HCPCS: 97110; 97161

== ENCOUNTER 2021-04-14 14:42 | Outpatient (REF) | payer OTHER, SELFPAY ==
[2021-04-14 14:54] LABS: Basophils Absolute Auto 0.3 X10*3/uL (0.0-0.2); Basophils Percent Auto 1.5 % (0-2); Eosinophils Absolute Auto 0.4 X10*3/uL (0.0-0.4); Eosinophils Percent Auto 2.6 % (0-4); Hematocrit 41.6 % (42.0-52.0); Hemoglobin 13.1 g/dl (14.0-18.0); Imm Gran Abs Auto 0.28 X10*3/uL (0.00-0.03); Imm Gran Pct Auto 1.7 % (0.0-0.4); Lymphocytes Absolute Auto 1.5 X10*3/uL (1.2-4.9); MANUAL DIFF FLAG SCAN; Mean Corpuscular HGB Conc 31.5 g/dl (31.0-36.0); Mean Corpuscular Hemoglobin 24.5 pg (27.0-33.0); Mean Corpuscular Volume 77.8 fL (80.0-98.0); Mean Platelet Volume 9.4 fL (9.4-12.4); Monocytes Absolute Auto 1.5 X10*3/uL (0.1-1.2); Neutrophils Absolute Auto 12.9 x10*3/uL (2.0-8.3); Neutrophils Percent Auto 76.2 % (45-73); Platelet Count 841 X10*3/uL (160-400); Red Blood Count 5.35 X10*6/uL (4.60-5.80); Red Cell Distribution Width 27.9 % (11.0-16.0); SCAN SMEAR FLAG 1; White Blood Count 16.9 X10*3/uL (4.8-10.8)
[2021-04-14 15:15] LABS: SLIDE REVIEW VERIFIED
[2021-04-14 15:16] LABS: Alanine Aminotransferase 10 U/L (0-40); Albumin Level 3.7 g/dL (3.5-5.0); Alkaline Phosphatase 61 U/L (39-117); Anion Gap 10 (12-20); Aspartate Amino Transferase 19 U/L (5-37); Bilirubin Total 0.8 mg/dL (0.0-1.0); Blood Urea Nitrogen 8 mg/dL (9-16); Calcium 8.9 mg/dL (8.4-10.2); Carbon Dioxide 26 mmol/L (22-29); Chloride 105 mmol/L (96-108); Estimated Glomerular Filt Rate > 60; Glucose Random 85 mg/dL (60-115); Potassium 4.4 mmol/L (3.3-5.1); Sodium 137 mmol/L (135-145); Total Protein 6.2 g/dL (6.5-8.0)
== END 2021-04-14 14:43 | disposition home or self-care (01) ==
LOC: HO.BBR 14:42
PROVIDERS: Visit Provider Internal Medicine Medical Oncology
DX: D75.1 Secondary polycythemia (principal)
CPT/HCPCS: 36415; 80053; 85014; 85018; 85025; 99195

== ENCOUNTER 2021-05-12 14:39 | Outpatient (REF) | payer OTHER, SELFPAY ==
[2021-05-12 14:49] LABS: MANUAL DIFF FLAG NO
[2021-05-12 14:52] LABS: Basophils Absolute Auto 0.3 X10*3/uL (0.0-0.2); Basophils Percent Auto 1.7 % (0-2); Eosinophils Absolute Auto 0.3 X10*3/uL (0.0-0.4); Eosinophils Percent Auto 1.9 % (0-4); Hematocrit 44.5 % (42.0-52.0); Hemoglobin 14.2 g/dl (14.0-18.0); Imm Gran Abs Auto 0.24 X10*3/uL (0.00-0.03); Imm Gran Pct Auto 1.6 % (0.0-0.4); Lymphocytes Absolute Auto 1.4 X10*3/uL (1.2-4.9); Lymphocytes Percent Auto 9.6 % (20-40); Mean Corpuscular HGB Conc 31.9 g/dl (31.0-36.0); Mean Corpuscular Hemoglobin 24.5 pg (27.0-33.0); Mean Corpuscular Volume 76.9 fL (80.0-98.0); Mean Platelet Volume 9.8 fL (9.4-12.4); Monocytes Absolute Auto 1.4 X10*3/uL (0.1-1.2); Monocytes Percent Auto 9.2 % (2-11); Neutrophils Absolute Auto 11.3 x10*3/uL (2.0-8.3); Platelet Count 859 X10*3/uL (160-400); Red Blood Count 5.79 X10*6/uL (4.60-5.80); White Blood Count 14.9 X10*3/uL (4.8-10.8)
[2021-05-12 15:41] LABS: Alanine Aminotransferase 17 U/L (0-40); Albumin Level 3.8 g/dL (3.5-5.0); Alkaline Phosphatase 50 U/L (39-117); Anion Gap 11 (12-20); Aspartate Amino Transferase 27 U/L (5-37); Bilirubin Total 0.5 mg/dL (0.0-1.0); Blood Urea Nitrogen 10 mg/dL (9-16); Carbon Dioxide 25 mmol/L (22-29); Chloride 107 mmol/L (96-108); Estimated Glomerular Filt Rate > 60; Glucose Random 77 mg/dL (60-115); Potassium 4.4 mmol/L (3.3-5.1); Sodium 139 mmol/L (135-145); Total Protein 6.2 g/dL (6.5-8.0)
== END 2021-05-12 14:40 | disposition home or self-care (01) ==
LOC: HO.BBR 14:39
PROVIDERS: Visit Provider Internal Medicine Medical Oncology
DX: D75.1 Secondary polycythemia (principal)
CPT/HCPCS: 36415; 80053; 85014; 85018; 85025; 99195

== ENCOUNTER 2021-06-13 13:45 | Outpatient (REF) | payer OTHER, SELFPAY ==
[2021-06-13 13:59] LABS: MANUAL DIFF FLAG NO
[2021-06-13 14:01] LABS: Basophils Absolute Auto 0.3 X10*3/uL (0.0-0.2); Basophils Percent Auto 2.1 % (0-2); Eosinophils Absolute Auto 0.4 X10*3/uL (0.0-0.4); Eosinophils Percent Auto 2.5 % (0-4); Hematocrit 42.7 % (42.0-52.0); Hemoglobin 13.2 g/dl (14.0-18.0); Imm Gran Abs Auto 0.19 X10*3/uL (0.00-0.03); Imm Gran Pct Auto 1.3 % (0.0-0.4); Lymphocytes Absolute Auto 1.6 X10*3/uL (1.2-4.9); Lymphocytes Percent Auto 10.9 % (20-40); Mean Corpuscular HGB Conc 30.9 g/dl (31.0-36.0); Mean Corpuscular Hemoglobin 22.8 pg (27.0-33.0); Mean Corpuscular Volume 73.6 fL (80.0-98.0); Mean Platelet Volume 9.7 fL (9.4-12.4); Monocytes Absolute Auto 1.4 X10*3/uL (0.1-1.2); Monocytes Percent Auto 9.8 % (2-11); Neutrophils Absolute Auto 10.7 x10*3/uL (2.0-8.3); Neutrophils Percent Auto 73.4 % (45-73); Platelet Count 843 X10*3/uL (160-400); Red Cell Distribution Width 20.7 % (11.0-16.0); White Blood Count 14.5 X10*3/uL (4.8-10.8)
[2021-06-13 14:35] LABS: Alanine Aminotransferase 28 U/L (0-40); Albumin Level 3.8 g/dL (3.5-5.0); Alkaline Phosphatase 60 U/L (39-117); Anion Gap 12 (12-20); Aspartate Amino Transferase 38 U/L (5-37); Bilirubin Total 0.7 mg/dL (0.0-1.0); Blood Urea Nitrogen 10 mg/dL (9-16); Calcium 9.1 mg/dL (8.4-10.2); Carbon Dioxide 24 mmol/L (22-29); Chloride 106 mmol/L (96-108); Estimated Glomerular Filt Rate > 60; Glucose Random 94 mg/dL (60-115); Potassium 4.2 mmol/L (3.3-5.1); Sodium 138 mmol/L (135-145); Total Protein 6.2 g/dL (6.5-8.0)
== END 2021-06-13 13:46 | disposition home or self-care (01) ==
LOC: HO.BBR 13:45
PROVIDERS: Visit Provider Internal Medicine Medical Oncology
DX: D75.1 Secondary polycythemia (principal)
CPT/HCPCS: 36415; 80053; 85025

== ENCOUNTER 2021-07-16 14:24 | Outpatient (REF) | payer OTHER, SELFPAY ==
[2021-07-16 14:37] LABS: MANUAL DIFF FLAG NO
[2021-07-16 14:40] LABS: Basophils Absolute Auto 0.3 X10*3/uL (0.0-0.2); Basophils Percent Auto 2.1 % (0-2); Eosinophils Absolute Auto 0.4 X10*3/uL (0.0-0.4); Eosinophils Percent Auto 2.4 % (0-4); Hematocrit 42.1 % (42.0-52.0); Hemoglobin 12.9 g/dl (14.0-18.0); Imm Gran Abs Auto 0.28 X10*3/uL (0.00-0.03); Imm Gran Pct Auto 1.8 % (0.0-0.4); Lymphocytes Absolute Auto 1.5 X10*3/uL (1.2-4.9); Lymphocytes Percent Auto 9.4 % (20-40); Mean Corpuscular HGB Conc 30.6 g/dl (31.0-36.0); Mean Corpuscular Hemoglobin 21.2 pg (27.0-33.0); Mean Corpuscular Volume 69.1 fL (80.0-98.0); Mean Platelet Volume 10.1 fL (9.4-12.4); Monocytes Absolute Auto 1.5 X10*3/uL (0.1-1.2); Monocytes Percent Auto 9.6 % (2-11); Neutrophils Absolute Auto 11.7 x10*3/uL (2.0-8.3); Neutrophils Percent Auto 74.7 % (45-73); Red Blood Count 6.09 X10*6/uL (4.60-5.80); Red Cell Distribution Width 21.1 % (11.0-16.0); White Blood Count 15.7 X10*3/uL (4.8-10.8)
[2021-07-16 15:05] LABS: Alanine Aminotransferase 31 U/L (0-40); Albumin Level 3.7 g/dL (3.5-5.0); Alkaline Phosphatase 56 U/L (39-117); Anion Gap 11 (12-20); Aspartate Amino Transferase 45 U/L (5-37); Bilirubin Total 0.8 mg/dL (0.0-1.0); Blood Urea Nitrogen 10 mg/dL (9-16); Carbon Dioxide 23 mmol/L (22-29); Chloride 108 mmol/L (96-108); Estimated Glomerular Filt Rate > 60; Glucose Random 117 mg/dL (60-115); Potassium 4.4 mmol/L (3.3-5.1); Sodium 138 mmol/L (135-145); Total Protein 6.1 g/dL (6.5-8.0)
[2021-07-17 07:43] LABS: Platelet Count 1042 X10*3/uL (160-400)
== END 2021-07-16 14:25 | disposition home or self-care (01) ==
LOC: HO.BBR 14:24
PROVIDERS: Visit Provider Internal Medicine Medical Oncology
DX: D75.1 Secondary polycythemia (principal)
CPT/HCPCS: 36415; 80053; 85018; 85025; 99195

== ENCOUNTER 2021-08-18 13:54 | Outpatient (REF) | payer OTHER, SELFPAY ==
[2021-08-18 14:13] LABS: MANUAL DIFF FLAG NO
[2021-08-18 14:15] LABS: Basophils Absolute Auto 0.2 X10*3/uL (0.0-0.2); Basophils Percent Auto 1.5 % (0-2); Eosinophils Absolute Auto 0.3 X10*3/uL (0.0-0.4); Eosinophils Percent Auto 1.9 % (0-4); Hemoglobin 13.4 g/dl (14.0-18.0); Imm Gran Abs Auto 0.25 X10*3/uL (0.00-0.03); Imm Gran Pct Auto 1.8 % (0.0-0.4); Lymphocytes Absolute Auto 1.3 X10*3/uL (1.2-4.9); Lymphocytes Percent Auto 9.1 % (20-40); Mean Corpuscular HGB Conc 30.5 g/dl (31.0-36.0); Mean Corpuscular Hemoglobin 20.6 pg (27.0-33.0); Mean Corpuscular Volume 67.7 fL (80.0-98.0); Mean Platelet Volume 9.8 fL (9.4-12.4); Monocytes Absolute Auto 1.1 X10*3/uL (0.1-1.2); Monocytes Percent Auto 8.2 % (2-11); Neutrophils Absolute Auto 10.8 x10*3/uL (2.0-8.3); Neutrophils Percent Auto 77.5 % (45-73); Platelet Count 708 X10*3/uL (160-400); Red Cell Distribution Width 22.4 % (11.0-16.0); White Blood Count 13.9 X10*3/uL (4.8-10.8)
[2021-08-18 15:05] LABS: Ferritin 8 ng/mL (20-250)
== END 2021-08-18 13:55 | disposition home or self-care (01) ==
LOC: HO.BBR 13:54
PROVIDERS: Visit Provider Internal Medicine Medical Oncology
DX: D75.1 Secondary polycythemia (principal)
CPT/HCPCS: 36415; 82728; 85025

== ENCOUNTER 2021-09-17 13:52 | Outpatient (REF) | payer OTHER, SELFPAY ==
[2021-09-17 14:03] LABS: MANUAL DIFF FLAG NO
[2021-09-17 14:05] LABS: Basophils Absolute Auto 0.3 X10*3/uL (0.0-0.2); Basophils Percent Auto 2.2 % (0-2); Eosinophils Absolute Auto 0.3 X10*3/uL (0.0-0.4); Eosinophils Percent Auto 2.1 % (0-4); Hematocrit 46.2 % (42.0-52.0); Hemoglobin 13.9 g/dl (14.0-18.0); Imm Gran Abs Auto 0.23 X10*3/uL (0.00-0.03); Imm Gran Pct Auto 1.7 % (0.0-0.4); Lymphocytes Absolute Auto 1.5 X10*3/uL (1.2-4.9); Lymphocytes Percent Auto 11.1 % (20-40); Mean Corpuscular HGB Conc 30.1 g/dl (31.0-36.0); Mean Corpuscular Hemoglobin 20.4 pg (27.0-33.0); Mean Corpuscular Volume 67.8 fL (80.0-98.0); Mean Platelet Volume 9.4 fL (9.4-12.4); Monocytes Absolute Auto 1.4 X10*3/uL (0.1-1.2); Neutrophils Absolute Auto 10.1 x10*3/uL (2.0-8.3); Neutrophils Percent Auto 72.9 % (45-73); Platelet Count 917 X10*3/uL (160-400); Red Blood Count 6.81 X10*6/uL (4.60-5.80); Red Cell Distribution Width 21.2 % (11.0-16.0); White Blood Count 13.8 X10*3/uL (4.8-10.8)
[2021-09-17 14:42] LABS: Alanine Aminotransferase 52 U/L (0-40); Alkaline Phosphatase 49 U/L (39-117); Anion Gap 11 (12-20); Aspartate Amino Transferase 61 U/L (5-37); Bilirubin Total 0.9 mg/dL (0.0-1.0); Blood Urea Nitrogen 8 mg/dL (9-16); Calcium 9.1 mg/dL (8.4-10.2); Carbon Dioxide 24 mmol/L (22-29); Chloride 108 mmol/L (96-108); Estimated Glomerular Filt Rate > 60; Glucose Random 92 mg/dL (60-115); Potassium 4.7 mmol/L (3.3-5.1); Sodium 138 mmol/L (135-145); Total Protein 6.2 g/dL (6.5-8.0)
== END 2021-09-17 13:53 | disposition home or self-care (01) ==
LOC: HO.BBR 13:52
PROVIDERS: Visit Provider Internal Medicine Medical Oncology
DX: D75.1 Secondary polycythemia (principal)
CPT/HCPCS: 36415; 80053; 85025

== ENCOUNTER 2021-11-19 14:02 | Outpatient (REF) | payer OTHER, SELFPAY ==
--- NOTE | ~2021-11-19 | XR_ITS ---
EXAMINATION: XR HIP, LEFT CLINICAL INFORMATION: Pain COMPARISON: None TECHNIQUE: Two views of the left hip. FINDINGS: Bone alignment is normal. No fracture or dislocation is seen. There is mild left left hip arthritis with acetabular osteophytes. Soft tissues are unremarkable. XR/XR hip LT min 2V IMPRESSION: Mild left hip arthritis.
== END 2021-11-19 14:03 | disposition home or self-care (01) ==
LOC: HO.HMGCX 14:02
PROVIDERS: PCP Nurse Practitioner Family; Visit Provider Nurse Practitioner Family
DX: M25.552 Pain in left hip (principal)
CPT/HCPCS: 73502

== ENCOUNTER 2021-12-17 13:53 | Outpatient (REF) | payer OTHER, SELFPAY ==
[2021-12-17 14:11] LABS: Hematocrit 43.5 % (42.0-52.0); Hemoglobin 13.9 g/dl (14.0-18.0); Mean Corpuscular Hemoglobin 23.5 pg (27.0-33.0); Mean Corpuscular Volume 73.5 fL (80.0-98.0); Mean Platelet Volume 9.5 fL (9.4-12.4); Red Blood Count 5.92 X10*6/uL (4.60-5.80); Red Cell Distribution Width 23.1 % (11.0-16.0)
[2021-12-17 14:33] LABS: Platelet Count 1008 X10*3/uL (160-400); WBC ABN SCTR FOR CBC 1
[2021-12-17 14:46] LABS: Atypical Lymphs Percent Manual 1 % (0-6); Band Neutrophils Percent 0 % (3-5); Basophils Percent Manual 1 % (0-2); Lymphocytes Percent Manual 8 % (20-40); Monocytes Percent Manual 8 % (2-11); Neutrophils Percent Manual 82 % (45-73)
[2021-12-17 14:47] LABS: Large Platelet PRESENT; Platelet Estimate INCREASED (NORMAL)
[2021-12-17 14:48] LABS: Microcytosis 1+ (5-14) /OIF
[2021-12-17 14:49] LABS: Hypochromasia 1+ (5-14) /OIF; Platelet Morphology Comment NOTE
[2021-12-17 14:50] LABS: Atypical Lymph Absolute Manual 0.2 x10*3/uL; Basophils Abs Manual 0.2 X10*3/uL (0.0-0.2); Lymphocytes Absolute Manual 1.2 X10*3/uL (1.2-4.9); Monocytes Absolute Manual 1.2 X10*3/uL (0.1-1.2); Neutrophils Absolute Manual 12.8 X10*3/uL (2.0-8.3); White Blood Count 15.6 X10*3/uL (4.8-10.8)
[2021-12-17 14:53] LABS: Alanine Aminotransferase 23 U/L (0-40); Albumin Level 3.9 g/dL (3.5-5.0); Alkaline Phosphatase 47 U/L (39-117); Anion Gap 15 (12-20); Aspartate Amino Transferase 38 U/L (5-37); Bilirubin Total 0.7 mg/dL (0.0-1.0); Blood Urea Nitrogen 13 mg/dL (9-16); Carbon Dioxide 23 mmol/L (22-29); Chloride 105 mmol/L (96-108); Estimated Glomerular Filt Rate > 60; Glucose Random 218 mg/dL (60-115); Potassium 4.8 mmol/L (3.3-5.1); Sodium 138 mmol/L (135-145)
[2021-12-17 15:04] LABS: RBC Morphology NOTED
== END 2021-12-17 13:54 | disposition home or self-care (01) ==
LOC: HO.BBR 13:53
PROVIDERS: Visit Provider Internal Medicine Medical Oncology
DX: Z13.89 Encounter for screening for other disorder (principal)
CPT/HCPCS: 36415; 80053; 85007; 85014; 85018; 85027; 99195

== ENCOUNTER 2022-01-09 14:38 | Outpatient (REF) | payer OTHER, SELFPAY ==
--- NOTE | ~2022-01-09 | CT_ITS ---
EXAMINATION: CT CHEST SCREENING CLINICAL INFORMATION: Current smoker with [id number] history of smoking. COMPARISON: None. TECHNIQUE: Multidetector volumetric CT imaging of the chest is performed without contrast using low dose technique. Additional 2D coronal and sagittal reformatted images and axial 3D maximum intensity projection (MIP) images are generated on the CT workstation. This CT examination was performed using dose optimization techniques as appropriate, variously including the following: *Automated exposure control *Adjustment of mA and/or kV according to patient size (this includes techniques or standardized protocols for targeted exams where dose is matched to indication/reason for exam; i.e. extremities or head) *Use of iterative reconstruction technique DLP: 46.00 mGy-cm. FINDINGS: LUNGS: There are mild changes of centrilobular emphysema within the upper lobes bilaterally. Central airways are patent. No significant bronchial wall thickening is seen. No bronchiectasis is noted. No confluent parenchymal disease. Some scattered sub-4 mm densities are seen bilaterally. Calcified granulomas present. There is a 4 mm noncalcified density seen within the anterior aspect of the right lower lobe on image [address] series #5. There is a noncalcified 4 mm density seen within the anterior aspect of the right upper lobe on image 290 of 567. MEDIASTINUM: Thyroid gland appears unremarkable. No mediastinal or hilar lymphadenopathy. Heart normal size. No thoracic aortic aneurysm. No pericardial effusion. CORONARY ARTERY CALCIFICATION: Coronary artery calcification is present. PLEURA: There is no pleural effusion. No pleural mass or thickening. AXILLA: No lymphadenopathy. UPPER ABDOMEN: Unremarkable. OSSEOUS STRUCTURES: No suspicious destructive bony lesions identified. CT/CT lung screening IMPRESSION: Old granulomatous disease. A few 4 mm noncalcified nodules as described. ASSESSMENT: Lung-RADS category 2: Benign. RECOMMENDATION: Routine annual low-dose CT screening in 12 months.
== END 2022-01-09 14:39 | disposition home or self-care (01) ==
LOC: HO.CT 14:38
PROVIDERS: PCP Nurse Practitioner Family; Visit Provider Physician Assistant Medical
DX: Z12.2 Encounter for screening for malignant neoplasm of respiratory organs (principal); F17.210 Nicotine dependence, cigarettes, uncomplicated
CPT/HCPCS: 71271; G0296

== ENCOUNTER 2022-01-22 14:47 | Outpatient (REF) | payer OTHER, SELFPAY ==
--- NOTE | ~2022-01-22 | US_ITS ---
EXAMINATION: ULTRASOUND EXTREMITY NONVASCULAR CLINICAL INFORMATION: Follow up lymphadenopathy COMPARISON: Previous lower extremity venous ultrasound July 2020 TECHNIQUE: Grayscale and color imaging of both inguinal regions FINDINGS: There are 3 right inguinal lymph nodes. These are normal in size and demonstrate normal ultrasound morphology and flow. These measure 1.5 x 1.7 x 1.5 cm, 0.9 x 1.4 x 0.4 cm and 0.7 x 0.9 x 0.6 cm. There is a normal-appearing left inguinal lymph node measuring 1.7 x 1.5 x 0.7 cm. US/US extremity nonvascular IMPRESSION: Normal-appearing bilateral inguinal lymph nodes.
== END 2022-01-22 14:48 | disposition home or self-care (01) ==
LOC: HO.US 14:47
PROVIDERS: Visit Provider Internal Medicine Medical Oncology
DX: R59.0 Localized enlarged lymph nodes (principal)
CPT/HCPCS: 76882

== ENCOUNTER 2022-04-22 13:55 | Outpatient (REF) | payer OTHER, SELFPAY ==
[2022-04-22 14:07] LABS: MANUAL DIFF FLAG NO
[2022-04-22 14:19] LABS: Basophils Percent Auto 0.7 % (0-2); Eosinophils Absolute Auto 0.1 X10*3/uL (0.0-0.4); Eosinophils Percent Auto 1.3 % (0-4); Hematocrit 31.5 % (42.0-52.0); Imm Gran Abs Auto 0.04 X10*3/uL (0.00-0.03); Imm Gran Pct Auto 0.7 % (0.0-0.4); Lymphocytes Absolute Auto 1.6 X10*3/uL (1.2-4.9); Lymphocytes Percent Auto 26.3 % (20-40); Mean Corpuscular HGB Conc 34.9 g/dl (31.0-36.0); Mean Corpuscular Hemoglobin 41.2 pg (27.0-33.0); Mean Platelet Volume 9.4 fL (9.4-12.4); Monocytes Absolute Auto 0.5 X10*3/uL (0.1-1.2); Monocytes Percent Auto 7.9 % (2-11); Neutrophils Absolute Auto 3.7 x10*3/uL (2.0-8.3); Neutrophils Percent Auto 63.1 % (45-73); Platelet Count 257 X10*3/uL (160-400); Red Blood Count 2.67 X10*6/uL (4.60-5.80); Red Cell Distribution Width 14.4 % (11.0-16.0)
[2022-04-22 14:25] LABS: White Blood Count 5.9 X10*3/uL (4.8-10.8)
[2022-04-22 14:47] LABS: Alanine Aminotransferase 15 U/L (0-40); Albumin Level 3.8 g/dL (3.5-5.0); Alkaline Phosphatase 40 U/L (39-117); Anion Gap 13 (12-20); Aspartate Amino Transferase 24 U/L (5-37); Bilirubin Total 0.8 mg/dL (0.0-1.0); Blood Urea Nitrogen 11 mg/dL (9-16); Calcium 8.7 mg/dL (8.4-10.2); Carbon Dioxide 26 mmol/L (22-29); Chloride 108 mmol/L (96-108); Estimated Glomerular Filt Rate > 60; Glucose Random 82 mg/dL (60-115); Potassium 4.8 mmol/L (3.3-5.1); Sodium 142 mmol/L (135-145); Total Protein 5.9 g/dL (6.5-8.0)
== END 2022-04-22 13:56 | disposition home or self-care (01) ==
LOC: HO.BBR 13:55
PROVIDERS: PCP Nurse Practitioner Family; Visit Provider Internal Medicine Medical Oncology
DX: D75.1 Secondary polycythemia (principal)
CPT/HCPCS: 36415; 80053; 85014; 85018; 85025; 99195

== ENCOUNTER 2022-10-22 14:41 | Outpatient (REF) | payer OTHER, SELFPAY | END 2022-10-22 14:42 | disposition home or self-care (01) | LOC: HO.BBR 14:41 | PROVIDERS: Visit Provider Internal Medicine Medical Oncology | DX: D75.1 Secondary polycythemia (principal) | CPT/HCPCS: 85014; 85018; 99195 ==

== ENCOUNTER 2023-02-18 13:40 | Outpatient (AMB) | payer OTHER, SELFPAY ==
[2023-02-18 13:41] VITALS: BP 122/74; PULSE 134; TEMP 36.7; O2SAT 98; BMI 22.9
--- NOTE | 2023-02-18 13:41 | AM.OFFWIN_ITS ---
Intake Vital Signs 02/18/23 13:41 Height 5 ft 9 in Weight 155 lb BMI 22.9 BP 122/74 Blood Pressure Location Rt brachial Position Sitting Pulse 134 H Pulse Source Pulse Oximeter Temp 98.0 F Temp Source Temporal Artery Scan Pulse Oximetry (%) 98 Oxygen Delivery Method Room Air Intake Visit Reasons: EST/left ear pain (lobby masked) Intake Note: pt is here today for lft ear pain started Patient Tobacco Use Status: Current everyday Tobacco user Allergies codeine [CODEINE] Allergy (Unknown, Verified 02/18/23 13:43) HIVES Do you need a note to return to daycare/school/sports/work: Yes HPI EST/left ear pain (lobby masked) HPI Details This is a 62-year-old patient who presents today with left ear pain. He states this started about 2-3 days ago. Denies any URI symptoms. Denies any fever. States ear feels blocked and he has been having a lot of pressure/pain on that left side. [facility] Medical History History of DVT (deep vein thrombosis) Tubular adenoma of colon Herniated disc Erythrocytosis Superficial thrombophlebitis of leg PVCs (premature ventricular contractions) Proteinuria Rosacea Erectile dysfunction Dyslipidemia PVD (peripheral vascular disease) Bigeminy HTN (hypertension) Tachycardia Surgical History History of colonoscopy History of back surgery History of appendectomy Family History Father No problems noted. Mother No problems noted. Sister No problems noted. Sister No problems noted. Son No problems noted. Brother No problems noted. Brother No problems noted. Brother No problems noted. Brother No problems noted. Social History Household Members: Spouse Housing: Apartment Are you a primary career development director to a significant other at home: No Do you presently have visiting nurse or other home services: No Alcohol intake: current Alcohol intake frequency: 0-2 drinks per day Alcohol type: beer Patient Tobacco Use Status: Current everyday Tobacco user Tobacco use type: Cigarette Cigarette Packs Per Day: 0.5 Years Smoked: (onset 17yo, 1/2ppd x 44yrs, 22pyh) e-Cigarette/Vaping Use: Never Used Second Hand Smoke Exposure: Yes Advance Directives Date on File: 07/09/20 service: No Current occupational status: employed Cognitive needs: No Hearing needs: No Vision needs: No Review of Systems Const All systems reviewed & are unremarkable except as noted in HPI and below Physical Exam Vital Signs: Last Vital Signs Temp 98.0 F 02/18/23 13:41 Pulse 134 H 02/18/23 13:41 BP 122/74 02/18/23 13:41 Pulse Ox 98 02/18/23 13:41 Oxygen Delivery Method Room Air 02/18/23 13:41 BMI result Body Mass Index 22.9 Const General: cooperative, healthy appearing and no acute distress HEENT Head: Yes normal to inspection Ears: external ears normal, TM normal on the right and unable to visualize TM (right - cerumen impaction) General nose exam: Normal external nose present and Normal nasal mucous membranes and turbinates present Neck Neck: Yes no lymphadenopathy Resp Effort & Inspection: normal respiratory effort Skin General skin exam: no rashes or lesions noted Extrem General: Yes no clubbing, cyanosis or edema Psych Appearance: grossly normal Mental Status: mental status grossly normal Office Procedures Cerumen Removal From which ear canal was the cerumen removed: left Removal: irrigation Notes: patient tolerated procedure well, no complications and ear canal clear [id number] Irrigation/Lavage Assessment & Plan Assessment & Plan (1) Impacted cerumen, left ear: Code(s): H61.22 - Impacted cerumen, left ear Plan: Irrigation of left ear done in the office today. Patient tolerated well and a large amount of cerumen was removed. Patient's TM appears normal but his ear canal is erythematous and tender. I will prescribe cipro/dexa drops and we reviewed use of these. If he does not improve with treatment, he should return to the clinic for further evaluation. He return p.r.n. for any needed ear irrigation in the future. He verbalizes understanding and agrees to plan. (2) Left otitis externa: Code(s): H60.92 - Unspecified otitis externa, left ear Qualifiers: Otitis externa type: diffuse Chronicity: acute Qualified Code(s): H60.312 - Diffuse otitis externa, left ear Plan: Abx drops as above. Medications: New ciprofloxacin-dexamethasone 0.3-0.1 % 4 drps otic (ear) left BID 7 days 7.5 mL 0RF H60.92 - Unspecified otitis externa, left ear Coding Level of Care Code Est Pt Level 3 (73464) Diagnoses Impacted cerumen, left ear H61.22 Acute diffuse otitis externa of left ear H60.312 Otitis externa type: diffuse Chronicity: acute CPT Codes Office Procedure - CPT: 96277-Yxb Irrigation/Lavage ([id number])
== END 2023-02-18 14:26 | disposition home or self-care (01) ==
PROVIDERS: PCP Nurse Practitioner Family; Visit Provider Nurse Practitioner Family
DX: H61.22 Impacted cerumen, left ear (principal); H60.312 Diffuse otitis externa, left ear
CPT/HCPCS: 69209; 99213

== ENCOUNTER 2023-04-07 09:48 | Outpatient (AMB) | payer OTHER, SELFPAY ==
[2023-04-07 10:08] VITALS: BP 116/74; PULSE 80; O2SAT 99; BMI 20.3
--- NOTE | 2023-04-07 10:08 | MHC.PC.OV ---
Vital Signs 04/07/23 10:08 Height 5 ft 9 in Weight 137 lb 6 oz BMI 20.3 BP 116/74 Blood Pressure Location Lt brachial Position Sitting Pulse 80 Pulse Source Pulse Oximeter Pulse Oximetry (%) 99 Oxygen Delivery Method Room Air Intake Visit Reasons: Medications Intake Note: Pt is here to follow up for his HTN Allergies codeine [CODEINE] Allergy (Unknown, Verified 04/07/23 11:12) HIVES Medication List - Last Reconciled 04/07/23 by KELTON Clifton amlodipine 10 mg PO DAILY gabapentin (Neurontin) 100 mg PO BEDTIME hydroxyurea (Hydrea) 500 mg PO BID lisinopril 40 mg PO DAILY metoprolol succinate ER 100 mg PO DAILY Tobacco use date assessed: 04/07/23 Fall risk assessment: No Falls in past year Last assessed Fall Risk: 04/07/23 Dental Screening Dental Screen Date: 04/07/23 Did you have a dental visit in the last 12 months?: Yes Did you have a dental problem in the last 6 months where you did not have access to dental care?: No Was dental information given to patient?: Patient has dentist HPI Medications HPI Details Pt is here for a PE. Will order labs. Due for PSA, will order. Denies dribbling with urination, weak stream, and frequent nocturia. Due for colon screen, will refer to GI. Pt follows up with hematology. Pt is a smoker, he is part of the low-dose CT program. Informed pt he can obtain his pneumonia vaccine at his pharmacy. [facility] Medical History History of DVT (deep vein thrombosis) Tubular adenoma of colon Herniated disc Erythrocytosis Superficial thrombophlebitis of leg PVCs (premature ventricular contractions) Proteinuria Rosacea Erectile dysfunction Dyslipidemia PVD (peripheral vascular disease) Bigeminy HTN (hypertension) Tachycardia Surgical History History of colonoscopy History of back surgery History of appendectomy Family History Father No problems noted. Mother No problems noted. Sister No problems noted. Sister No problems noted. Son No problems noted. Brother No problems noted. Brother No problems noted. Brother No problems noted. Brother No problems noted. Social History Household Members: Spouse Housing: Apartment Are you a primary healthcare corporate account director to a significant other at home: No Do you presently have visiting nurse or other home services: No Alcohol intake: current Alcohol intake frequency: 0-2 drinks per day Alcohol type: beer Patient Tobacco Use Status: Current everyday Tobacco user Tobacco use type: Cigarette Cigarette Packs Per Day: 0.5 Years Smoked: (onset 17yo, 1/2ppd x 42yrs, 22pyh) e-Cigarette/Vaping Use: Never Used Second Hand Smoke Exposure: Yes Advance Directives Date on File: 07/09/20 service: No Current occupational status: employed Cognitive needs: No Hearing needs: No Vision needs: No Questionnaire PHQ-9 Over the last 2 weeks, how often have you been bothered by any of the following problems? 1. Little interest or pleasure in doing things: not at all 2. Feeling down, depressed, or hopeless: not at all 3. Trouble falling or staying asleep, or sleeping too much: not at all 4. Feeling tired or having little energy: not at all 5. Poor appetite or overeating: not at all 6. Feeling bad about yourself - or that you are a failure or have let yourself or your family down: not at all 7. Trouble concentrating on things, such as reading the newspaper or watching television: not at all 8. Moving or speaking so slowly that other people could have noticed. Or the opposite - being so fidgety or restless that you have been moving around a lot more than usual: not at all 9. Thoughts that you would be better off or of hurting yourself in some way: not at all Total score: 0 Source: Developed by Drs. Zack Steward, Marlen Cabral, Chintan Cisneros and colleagues, with an educational maria luz from [employer]. Thrive Questionnaire Date Thrive assessed: 04/07/23 I am a: Patient What is your living situation today?: I have a steady place to live Within the past 12 months, did the food you bought not last and you didn't have the money to get more?: Sometimes True Within the past 12 months, did you worry whether your food would run out before you got money to buy more?: Sometimes True Do you have trouble paying for medicines?: Yes Do you have trouble getting transportation to medical appointments?: No Do you have trouble paying your heating and electricity bill?: Yes Do you have trouble taking care of your child, family member or friend?: No Do you have trouble with day-to-day activities such as bathing, preparing meals, shopping, managing finances, etc.?: No Are you currently unemployed and looking for a job?: No Are you interested in more education?: No Currently or been in a relationship where the following occur: no concerns reported THRIVE Score: 3 AUDIT C Alcohol Use Questionnaire (AUDIT-C) 1. How often do you have a drink containing alcohol?: 2-3 times a week 2. How many drinks containing alcohol do you have on a typical day when you are drinking?: 3 or 4 3. How often do you have six or more drinks on one occasion?: Never Total Score: 4 ALEX-7 AMB Questionnaire ALEX-7 Date ALEX - 7 assessed: 04/07/23 Feeling nervous, anxious, or on edge: 0 = Not at all Not being able to stop or control worryin = Not at all Worrying too much about different things: 0 = Not at all Trouble relaxin = Not at all Being so restless that it is hard to sit still: 0 = Not at all Becoming easily annoyed or irritable: 0 = Not at all Feeling afraid as if something awful might happen: 0 = Not at all Total ALEX-7 score (0-4 normal; 5-9 mild; 10-14 moderate; 15-21 severe): 0 Source: Developed by Drs. Zack Steward, Marlen Cabral, Chintan Cisneros and colleagues, with an educational maria luz from [employer]. Review of Systems Const Denies chills and Denies fever(s) Eyes Denies blurry vision ENT Denies vertigo, Denies dizziness and Denies sore throat Card Denies chest pain at rest, Denies chest pain with activity, Denies diaphoresis, Denies dyspnea and Denies dyspnea on exertion Resp Denies cough, Denies dyspnea, Denies dyspnea on exertion and Denies wheezing GI Denies abdominal pain, Denies melena, Denies hematochezia, Denies constipation, Denies diarrhea and Denies loose stools Denies hematuria Musc Denies numbness and Denies tingling Skin/Breast Denies lesions Neuro Denies vertigo, Denies dizziness, Denies numbness and Denies tingling Psych Denies anxiety, Denies depression, Denies homicidal ideation, Denies suicidal ideation and Denies other (substance abuse) Aller/Immun Denies wheezing Physical exam (Primary Care) Vital Signs: Last Vital Signs Pulse 80 04/07/23 10:08 BP 116/74 04/07/23 10:08 Pulse Ox 99 04/07/23 10:08 Oxygen Delivery Method Room Air 04/07/23 10:08 BMI result Body Mass Index 20.3 Tobacco/Smoking Status: Tobacco use Status Tobacco use date assessed 04/07/23 04/07/23 10:14 Patient Tobacco Use Status Current everyday Tobacco 04/07/23 10:14 Tobacco use type Cigarette 04/07/23 10:14 e-Cigarette/Vaping Use Never Used 04/07/23 10:14 Thrive Assessment: Date of Thrive Assessment Date Thrive assessed 02/24/21 04/07/23 10:14 Currently or been in a relationship where the following occur: no concerns reported Const General: cooperative Nutritional Appearance: well nourished Orientation/consciousness: patient oriented x3 HENMT Head: Yes normal to inspection, Yes normocephalic and Yes atraumatic Ears: TM's normal bilaterally Eyes General: appearance normal, both eyes and all related structures Alignment and Position: alignment normal and position normal Neck Neck: Yes normal visual inspection and Yes no lymphadenopathy Thyroid: Thyroid normal Resp Effort & Inspection: normal respiratory effort Auscultation: wheezes expiratory wheezes, inspiratory wheezes and throughout Cardio Rate: regular rate Rhythm: regular rhythm Heart sounds: S1 normal heart sound present, S2 normal heart sound present and no murmurs GI Palpation (GI): Soft to palpation and nontender Auscultation: normal bowel sounds Male General Exam: Yes normal external exam Penis: normal penis Scrotum: scrotum normal, testes descended bilaterally and no inguinal hernias Testes: no testicular mass Skin Rashes: no rashes Neuro General: patient oriented x3, moves all extremities, no focal motor deficits and deep tendon reflexes 2+ bilaterally Romberg Test: Negative Psych Appearance: grossly normal Mental Status: mental status grossly normal Speech and movement: Normal speech and movement present Affect: normal affect Attitude: cooperative Thought process: Normal thought process present Thought content: Normal thought content present Insight: Good insight present (Psych) Judgement: Good judgement present (Psych) Assessment and Plan Assessment & Plan (1) Physical exam: Code(s): Z00.00 - Encounter for general adult medical examination without abnormal findings Plan: Labs ordered (2) Screening for colon cancer: Code(s): Z12.11 - Encounter for screening for malignant neoplasm of colon Plan: Referred to GI (3) Screening PSA (prostate specific antigen): Code(s): Z12.5 - Encounter for screening for malignant neoplasm of prostate Plan: PSA ordered Plan The patient agreed to the use of a medical cost consultant for this encounter. Scribed for KELTON Naidu by Maia Gurrola medical cost consultant, on 04/07/2023 at 10:20 EST. Orders: Orders Complete Blood Count Auto Diff Today Z00.00 - Encounter for general adult medical examination without abnormal findings Prostate Specific Antigen Scr Today Z12.5 - Encounter for screening for malignant neoplasm of prostate Comprehensive [place]. Panel Fast Today Z00.00 - Encounter for general adult medical examination without abnormal findings TSH reflex Free T4 Today Z00.00 - Encounter for general adult medical examination without abnormal findings UA CC w/rflx Micro + Cult Today Z00.00 - Encounter for general adult medical examination without abnormal findings Lipid Panel Today Z00.00 - Encounter for general adult medical examination without abnormal findings Referrals Gastroenterology Referral Z12.11 - Encounter for screening for malignant neoplasm of colon Medications: New tadalafil (Cialis) administer approximately 30min before sexual activity; do not use more than 1 dose per 24hrs 5 mg PO DAILY PRN 90 tabs 0RF sexual activity Coding Level of Care Code Est Pt Prev Care 40-64y(47632) Diagnoses Physical exam Z00.00 Screening for colon cancer Z12.11 Screening PSA (prostate specific antigen) Z12.5
== END 2023-04-07 10:36 | disposition home or self-care (01) ==
PROVIDERS: PCP Nurse Practitioner Family; Visit Provider Nurse Practitioner Family
DX: Z00.00 Encounter for general adult medical examination without abnormal findings (principal); Z12.11 Encounter for screening for malignant neoplasm of colon; Z12.5 Encounter for screening for malignant neoplasm of prostate
CPT/HCPCS: 99396

== ENCOUNTER 2023-06-14 08:31 | Outpatient (REF) | payer OTHER, SELFPAY ==
[2023-06-14 10:15] LABS: MANUAL DIFF FLAG NO
[2023-06-14 10:22] LABS: Basophils Percent Auto 0.5 % (0-2); Eosinophils Absolute Auto 0.1 X10*3/uL (0.0-0.4); Eosinophils Percent Auto 0.9 % (0-4); Hemoglobin 14.8 g/dl (14.0-18.0); Imm Gran Abs Auto 0.13 X10*3/uL (0.00-0.03); Imm Gran Pct Auto 1.7 % (0.0-0.4); Lymphocytes Absolute Auto 1.4 X10*3/uL (1.2-4.9); Mean Corpuscular HGB Conc 35.2 g/dl (31.0-36.0); Mean Corpuscular Hemoglobin 39.6 pg (27.0-33.0); Mean Platelet Volume 10.2 fL (9.4-12.4); Monocytes Absolute Auto 0.8 X10*3/uL (0.1-1.2); Neutrophils Absolute Auto 5.1 x10*3/uL (2.0-8.3); Neutrophils Percent Auto 67.9 % (45-73); Platelet Count 341 X10*3/uL (160-400); Red Blood Count 3.74 X10*6/uL (4.60-5.80); Red Cell Distribution Width 11.7 % (11.0-16.0); White Blood Count 7.5 X10*3/uL (4.8-10.8)
[2023-06-14 10:30] LABS: Mean Corpuscular Volume 112.3 fL (80.0-98.0)
[2023-06-14 10:59] LABS: Alanine Aminotransferase 17 U/L (0-40); Alkaline Phosphatase 56 U/L (39-117); Anion Gap 11 (12-20); Aspartate Amino Transferase 25 U/L (5-37); Bilirubin Total 0.4 mg/dL (0.0-1.0); Blood Urea Nitrogen 13 mg/dL (9-16); Calcium 8.6 mg/dL (8.4-10.2); Carbon Dioxide 23 mmol/L (22-29); Chloride 105 mmol/L (96-108); Cholesterol 146 mg/dL (<200); Estimated Glomerular Filt Rate > 60; Glucose Fasting 104 mg/dL (60-99); HDL Cholesterol 43 mg/dL (>40); LDL Cholesterol Calculated 83 mg/dL (<100); Potassium 3.9 mmol/L (3.3-5.1); Sodium 135 mmol/L (135-145); Total Protein 6.8 g/dL (6.5-8.0); Triglycerides 101 mg/dL (<150)
[2023-06-14 11:13] LABS: Prostate Specific Antigen Scr 1.07 ng/mL (<0.05-4.0)
[2023-06-14 11:16] LABS: TSH reflex Free T4 1.06 uIU/mL (0.32-4.0)
== END 2023-06-14 08:32 | disposition home or self-care (01) ==
LOC: HO.HMGCLDS 08:31
PROVIDERS: PCP Nurse Practitioner Family; Visit Provider Nurse Practitioner Family
DX: Z00.00 Encounter for general adult medical examination without abnormal findings (principal); Z12.5 Encounter for screening for malignant neoplasm of prostate; Z13.6 Encounter for screening for cardiovascular disorders
CPT/HCPCS: 36415; 80053; 80061; 84153; 84443; 85025

== ENCOUNTER 2023-06-14 08:49 | Outpatient (AMB) | payer OTHER, SELFPAY ==
[2023-06-14 09:12] VITALS: BP 130/60; PULSE 77; TEMP 36.5; O2SAT 98; BMI 19.9
--- NOTE | 2023-06-14 09:12 | MHC.OFFWIV ---
Intake Vital Signs 06/14/23 09:12 Height 5 ft 9 in Weight 135 lb BMI 19.9 BP 130/60 Blood Pressure Location Lt brachial Position Sitting Pulse 77 Pulse Source Pulse Oximeter Temp 97.7 F Temp Source Temporal Artery Scan Pulse Oximetry (%) 98 Oxygen Delivery Method Room Air Intake Visit Reasons: EP Stomach pain loose stools 3 days Intake Note: pt is here today for stomach pain loose stool started 3 days ago Patient Tobacco Use Status: Current everyday Tobacco user Allergies codeine [CODEINE] Allergy (Unknown, Verified 06/14/23 09:15) HIVES Medication List - Last Reconciled 06/14/23 by Lucien Curiel MD amlodipine 10 mg PO DAILY lisinopril 40 mg PO DAILY metoprolol succinate ER 100 mg PO DAILY Do you need a note to return to daycare/school/sports/work: No HPI EP Stomach pain loose stools 3 days HPI Details 62-year-old male presents to the office for a sick visit. Patient is reporting symptoms of diarrhea for the past 4 days. He ate at a fast food joint and symptoms started soon after. No nausea or vomiting. He is getting up in the middle of the night to go to the bathroom. Liquid stool with a lot of gas. No cramps or tenesmus. 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 [facility] Medical History History of DVT (deep vein thrombosis) Tubular adenoma of colon Herniated disc Erythrocytosis Superficial thrombophlebitis of leg PVCs (premature ventricular contractions) Proteinuria Rosacea Erectile dysfunction Dyslipidemia PVD (peripheral vascular disease) Bigeminy HTN (hypertension) Tachycardia Surgical History History of colonoscopy History of back surgery History of appendectomy Family History Father No problems noted. Mother No problems noted. Sister No problems noted. Sister No problems noted. Son No problems noted. Brother No problems noted. Brother No problems noted. Brother No problems noted. Brother No problems noted. Social History Household Members: Spouse Housing: Apartment Are you a primary day care supervisor to a significant other at home: No Do you presently have visiting nurse or other home services: No Alcohol intake: current Alcohol intake frequency: 0-2 drinks per day Alcohol type: beer Patient Tobacco Use Status: Current everyday Tobacco user Tobacco use type: Cigarette Cigarette Packs Per Day: 0.5 Years Smoked: (onset 17yo, 1/2ppd x 44yrs, 22pyh) e-Cigarette/Vaping Use: Never Used Second Hand Smoke Exposure: Yes Advance Directives Date on File: 07/09/20 service: No Current occupational status: employed Cognitive needs: No Hearing needs: No Vision needs: No Physical Exam Vital Signs: Last Vital Signs Temp 97.7 F 06/14/23 09:12 Pulse 77 06/14/23 09:12 BP 130/60 06/14/23 09:12 Pulse Ox 98 06/14/23 09:12 Oxygen Delivery Method Room Air 06/14/23 09:12 BMI result Body Mass Index 19.9 Const General: cooperative and healthy appearing Nutritional Appearance: well nourished Orientation/consciousness: patient oriented x3 Limitations: no limitations HEENT Head: Yes normal to inspection Eyes General: appearance normal, both eyes and all related structures Neck Neck: Yes normal visual inspection Chest Chest palpation & inspection: normal palpation of entire chest wall Resp Effort & Inspection: normal respiratory effort Neuro General: patient oriented x3 Assessment & Plan Assessment & Plan (1) Gastroenteritis: Code(s): K52.9 - Noninfective gastroenteritis and colitis, unspecified Plan: Trial of Cipro for 5 days. Increase fluid intake. If symptoms do not improve to follow-up here. Coding Level of Care Code Est Pt Level 3 (65117) Diagnoses Gastroenteritis K52.9
== END 2023-06-14 10:11 | disposition home or self-care (01) ==
PROVIDERS: PCP Nurse Practitioner Family; Visit Provider Internal Medicine
DX: K52.9 Noninfective gastroenteritis and colitis, unspecified (principal)
CPT/HCPCS: 99213

== ENCOUNTER 2023-08-05 13:48 | Outpatient (AMB) | payer OTHER, SELFPAY ==
[2023-08-05 14:16] VITALS: BP 130/70; PULSE 81; TEMP 36.4; O2SAT 94; BMI 20.5
--- NOTE | 2023-08-05 14:16 | MHC.OFFWIV ---
Intake Vital Signs 08/05/23 14:16 Height 5 ft 9 in Weight 139 lb BMI 20.5 BP 130/70 Blood Pressure Location Lt brachial Position Sitting Pulse 81 Pulse Source Pulse Oximeter Temp 97.5 F Temp Source Temporal Artery Scan Pulse Oximetry (%) 94 Oxygen Delivery Method Room Air Intake Visit Reasons: Est/ lump on back (lobby) Intake Note: pt is here today for lump on back started wednesday Patient Tobacco Use Status: Current everyday Tobacco user Allergies codeine [CODEINE] Allergy (Unknown, Verified 08/05/23 14:18) HIVES Do you need a note to return to daycare/school/sports/work: No HPI HPI Comments History of Present Illness Details This is a 62-year-old male with a past medical history of hypertension presenting for evaluation of painful lesion on his back that has been present for the past 10-12 months. Patient states that it was not painful however until the past 5-7 days. Patient denies any injury or trauma to this lesion over the past 10 days. Patient states that it was a painless lump before but has become significantly painful in the past 7 days. Patient denies having any fevers, chills, discharge from the lesion and has not taken any medication for treatment of his discomfort. [facility] Medical History History of DVT (deep vein thrombosis) Tubular adenoma of colon Herniated disc Erythrocytosis Superficial thrombophlebitis of leg PVCs (premature ventricular contractions) Proteinuria Rosacea Erectile dysfunction Dyslipidemia PVD (peripheral vascular disease) Bigeminy HTN (hypertension) Tachycardia Surgical History History of colonoscopy History of back surgery History of appendectomy Family History Father No problems noted. Mother No problems noted. Sister No problems noted. Sister No problems noted. Son No problems noted. Brother No problems noted. Brother No problems noted. Brother No problems noted. Brother No problems noted. Social History Household Members: Spouse Housing: Apartment Are you a primary intensive care specialist to a significant other at home: No Do you presently have visiting nurse or other home services: No Alcohol intake: current Alcohol intake frequency: 0-2 drinks per day Alcohol type: beer Patient Tobacco Use Status: Current everyday Tobacco user Tobacco use type: Cigarette Cigarette Packs Per Day: 0.5 Years Smoked: (onset 17yo, 1/2ppd x 44yrs, 22pyh) e-Cigarette/Vaping Use: Never Used Second Hand Smoke Exposure: Yes Advance Directives Date on File: 07/09/20 service: No Current occupational status: employed Cognitive needs: No Hearing needs: No Vision needs: No Review of Systems Const All systems reviewed & are unremarkable except as noted in HPI and below Denies chills and Denies fever(s) Skin/Breast Reports non-healing lesions and Reports erythema Neuro Reports no additional complaints Psych Reports no additional complaints Physical Exam Vital Signs: Last Vital Signs Temp 97.5 F 08/05/23 14:16 Pulse 81 08/05/23 14:16 BP 130/70 08/05/23 14:16 Pulse Ox 94 08/05/23 14:16 Oxygen Delivery Method Room Air 08/05/23 14:16 BMI result Body Mass Index 20.5 Patient is afebrile. Const General: cooperative, healthy appearing, comfortable, no acute distress, well developed, alert, awake and Physically active Nutritional Appearance: average body habitus Orientation/consciousness: patient oriented x3 Limitations: no limitations Skin Other: there is a 2.5cm round, raised, erythematous lesion on the right thoracic region of the back that is warm and tender to touch with four individual pustules; no active discharge. Lesions: lesion noted Neuro General: patient oriented x3 Psych Appearance: grossly normal Mental Status: mental status grossly normal Insight: Good insight present (Psych) Judgement: Good judgement present (Psych) Assessment & Plan Assessment & Plan (1) Infected sebaceous cyst: Comment: Patient's history coupled with his examination is consistent with an infected sebaceous cyst. Patient is declining an incision and drainage at this time and therefore will be discharged home with antibiotic therapy and follow up with his primary care physician as needed. Code(s): L72.3 - Sebaceous cyst; L08.9 - Local infection of the skin and subcutaneous tissue, unspecified Plan: Bactrim b.i.d. x7 days; warm compresses 3 times a day. Follow up with primary care provider within 7-10 days for a re-evaluation of this lesion, sooner for any worsening symptoms. Patient is instructed to return to urgent care as needed for any worsening symptoms. Medications: New sulfamethoxazole-trimethoprim 800-160 mg (Bactrim DS) 1 tab PO BID 14 tabs 0RF Coding Level of Care Code Est Pt Level 3 (05654) Diagnoses Infected sebaceous cyst L72.3; L08.9 Time Spent (min) 20
== END 2023-08-05 15:17 | disposition home or self-care (01) ==
PROVIDERS: PCP Nurse Practitioner Family; Visit Provider Physician Assistant
DX: L72.3 Sebaceous cyst (principal); L08.9 Local infection of the skin and subcutaneous tissue, unspecified
CPT/HCPCS: 99213

== ENCOUNTER 2023-08-13 13:47 | Outpatient (AMB) | payer OTHER, SELFPAY ==
--- NOTE | 2023-08-13 13:48 | A.OFFPC_ITS ---
Vital Signs 08/13/23 13:52 Height 5 ft 9 in Weight 136 lb BMI 20.1 BP 112/64 Blood Pressure Location Rt brachial Position Sitting Pulse 78 Pulse Source Pulse Oximeter Pulse Oximetry (%) 97 Oxygen Delivery Method Room Air Intake Visit Reasons: Follow up walk-in Lump Intake Note: pt here for walkin f/u from 08/05/23 for sebaceous cyst on back. Pt states no improvement even after completing antibiotics Allergies codeine [CODEINE] Allergy (Unknown, Verified 08/13/23 14:21) HIVES Medication List - Last Reconciled 08/13/23 by FRANK Riggs amlodipine 10 mg PO DAILY lisinopril 40 mg PO DAILY metoprolol succinate ER 100 mg PO DAILY Tobacco use date assessed: 08/13/23 Dental Screening Dental Screen Date: 04/07/23 HPI HPI Comments History of Present Illness Details Patient is a 62-year-old male following up from a walk-in visit. Was found have sebaceous cyst on back was given course of Bactrim. Patient is here with complaints that the cyst has grown in size. Even following antibiotic regimen. Denies any fevers or chills. States that the cyst is not painful but itches. [facility] Medical History History of DVT (deep vein thrombosis) Tubular adenoma of colon Herniated disc Erythrocytosis Superficial thrombophlebitis of leg PVCs (premature ventricular contractions) Proteinuria Rosacea Erectile dysfunction Dyslipidemia PVD (peripheral vascular disease) Bigeminy HTN (hypertension) Tachycardia Surgical History History of colonoscopy History of back surgery History of appendectomy Family History Father No problems noted. Mother No problems noted. Sister No problems noted. Sister No problems noted. Son No problems noted. Brother No problems noted. Brother No problems noted. Brother No problems noted. Brother No problems noted. Social History Household Members: Spouse Housing: Apartment Are you a primary laboratory animal caretaker to a significant other at home: No Do you presently have visiting nurse or other home services: No Alcohol intake: current Alcohol intake frequency: 0-2 drinks per day Alcohol type: beer Patient Tobacco Use Status: Current everyday Tobacco user Tobacco use type: Cigarette Cigarette Packs Per Day: 0.5 Years Smoked: (onset 17yo, 1/2ppd x 44yrs, 22pyh) e-Cigarette/Vaping Use: Never Used Second Hand Smoke Exposure: Yes Advance Directives Date on File: 07/09/20 service: No Current occupational status: employed Cognitive needs: No Hearing needs: No Vision needs: No Questionnaire Thrive Questionnaire Date Thrive assessed: 04/07/23 AUDIT C Alcohol Use Questionnaire (AUDIT-C) 1. How often do you have a drink containing alcohol?: 2-3 times a week 2. How many drinks containing alcohol do you have on a typical day when you are drinking?: 3 or 4 3. How often do you have six or more drinks on one occasion?: Never Total Score: 4 ALEX-7 AMB Questionnaire ALEX-7 Date ALEX - 7 assessed: 04/07/23 Source: Developed by Drs. Zack Steward, Marlen Cabral, Chintan Cisneros and colleagues, with an educational maria luz from [employer]. Review of Systems Const All systems reviewed & are unremarkable except as noted in HPI and below Physical exam (Primary Care) Vital Signs: Last Vital Signs Pulse 78 08/13/23 13:52 BP 112/64 08/13/23 13:52 Pulse Ox 97 08/13/23 13:52 Oxygen Delivery Method Room Air 08/13/23 13:52 BMI result Body Mass Index 20.1 Tobacco/Smoking Status: Tobacco use Status Tobacco use date assessed 08/13/23 08/13/23 13:57 Patient Tobacco Use Status Current everyday Tobacco 08/13/23 13:48 Tobacco use type Cigarette 08/13/23 13:48 e-Cigarette/Vaping Use Never Used 08/13/23 13:48 Thrive Assessment: Date of Thrive Assessment Date Thrive assessed 04/07/23 08/13/23 13:48 Const General: cooperative and no acute distress Orientation/consciousness: patient oriented x3 Limitations: no limitations Resp Effort & Inspection: normal respiratory effort Skin General skin exam: erythema, fluctuance (Half dollar size sebaceous cyst on patient's back, right side of T4. ) and other (no discharge. ) Neuro General: patient oriented x3 Assessment and Plan Assessment & Plan (1) Infected sebaceous cyst: Comment: Patient's history coupled with his examination is consistent with an infected sebaceous cyst. Will refer to General surgery for incision and drainage. Code(s): L72.3 - Sebaceous cyst; L08.9 - Local infection of the skin and subcutaneous tissue, unspecified Orders: Referrals General Surgery Referral L08.9 - Local infection of the skin and subcutaneous tissue, unspecified, L72.3 - Sebaceous cyst Coding Level of Care Code Est Pt Level 3 (99555) Diagnoses Infected sebaceous cyst L72.3; L08.9 Time Spent (min) 21
[2023-08-13 13:52] VITALS: BP 112/64; PULSE 78; O2SAT 97; BMI 20.1
== END 2023-08-13 14:55 | disposition home or self-care (01) ==
PROVIDERS: PCP Nurse Practitioner Family; Visit Provider Nurse Practitioner Primary Care
DX: L72.3 Sebaceous cyst (principal); L08.9 Local infection of the skin and subcutaneous tissue, unspecified
CPT/HCPCS: 99213

== ENCOUNTER 2023-08-24 14:22 | Outpatient (REF) | payer OTHER, SELFPAY | END 2023-08-24 14:23 | disposition home or self-care (01) | LOC: HO.LNP 14:22 | PROVIDERS: PCP Nurse Practitioner Family; Referring Provider Nurse Practitioner Family; Visit Provider Surgery | DX: L72.3 Sebaceous cyst (principal); L08.9 Local infection of the skin and subcutaneous tissue, unspecified | CPT/HCPCS: 10061; 87070; 87147; 87205; 88304 ==

== ENCOUNTER 2023-08-24 14:22 | Outpatient (AMB) | payer OTHER, SELFPAY ==
--- NOTE | 2023-08-24 14:22 | MHC.OFFVIS ---
Vital Signs 08/24/23 14:26 Height 5 ft 9 in Weight 136 lb 0.015 oz BMI 20.1 Intake Visit Reasons: Sebaceous cyst of back Intake Note: This patient presents for an assessment for sebaceous cyst of back. Patient c/o; reports completed one round of abx, reports drainage, reports no pain, reports itchiness. [employer] Required: No Accompanied by: Self / Same As Patient Allergies codeine [CODEINE] Allergy (Unknown, Verified 08/24/23 14:29) HIVES Medication List - Last Reconciled 08/24/23 by Garrett Burton MD amlodipine 10 mg PO DAILY lisinopril 40 mg PO DAILY metoprolol succinate ER 100 mg PO DAILY HPI Comments Details: PATIENT PRESENTS FOR EVALUATION OF INFECTED SEBACEOUS CYST/ABSCESS OF THE MID BACK. HE HAS HAD A CYST HERE FOR MANY YEARS TIME. OVER THE LAST 2 WEEKS TIME IT HAS BECOME VERY RED, HOT, SWOLLEN, AND DRAINING. CHART WAS REVIEWED AND PATIENT EVALUATED [facility] Medical History History of DVT (deep vein thrombosis) Tubular adenoma of colon Herniated disc Erythrocytosis Superficial thrombophlebitis of leg PVCs (premature ventricular contractions) Proteinuria Rosacea Erectile dysfunction Dyslipidemia PVD (peripheral vascular disease) Bigeminy HTN (hypertension) Tachycardia Surgical History History of colonoscopy History of back surgery History of appendectomy Family History Father No problems noted. Mother No problems noted. Sister No problems noted. Sister No problems noted. Son No problems noted. Brother No problems noted. Brother No problems noted. Brother No problems noted. Brother No problems noted. Social History Household Members: Spouse Housing: Apartment Are you a primary client care representative to a significant other at home: No Do you presently have visiting nurse or other home services: No Alcohol intake: current Alcohol intake frequency: 0-2 drinks per day Alcohol type: beer Patient Tobacco Use Status: Current everyday Tobacco user Tobacco use type: Cigarette Cigarette Packs Per Day: 0.5 Years Smoked: (onset 17yo, 1/2ppd x 44yrs, 22pyh) e-Cigarette/Vaping Use: Never Used Second Hand Smoke Exposure: Yes Advance Directives Date on File: 07/09/20 service: No Current occupational status: employed Cognitive needs: No Hearing needs: No Vision needs: No Physical Exam Vital Signs: BMI result Body Mass Index 20.1 Back/Spine/Pelvis Other: PATIENT HAS AN APPROXIMATELY 4 X 3 CM MID BACK INFECTED SEBACEOUS CYST/ABSCESS. Risks, benefits, alternatives of incision drainage of this process were reviewed the patient and included but not limited to bleeding, infection, recurrence, numbness, pain, scarring and the patient wishes to proceed. All questions answered. Office Procedures I&D Drain Details: After appropriate positioning, patient underwent 1% lidocaine and Betadine prep of the complex 4 x 3 cm complex infected sebaceous cyst. Incision and drainage were performed with copious amounts of purulent material retrieved. The majority of cyst was also excised. Specimen sent to pathology. Wound was irrigated, secured hemostasis, and packed, sterile dressing applied. Patient tolerated procedure well. 14179-Ytjtspne of Skin Abscess, complex All charges added?: Procedure code (CPT) selection complete Assessment & Plan Assessment & Plan (1) Infected sebaceous cyst: Comment: Patient's history coupled with his examination is consistent with an infected sebaceous cyst. Will refer to General surgery for incision and drainage. Code(s): L72.3 - Sebaceous cyst; L08.9 - Local infection of the skin and subcutaneous tissue, unspecified Category: Surgical Plan: Patient will be given antibiotics, analgesics, arrangements made to Alexandre regarding packing changes, and will see me in a proximally 1.5 weeks time or p.r.n.. All questions answered. Plan See above Orders: Orders Surgical Today L08.9 - Local infection of the skin and subcutaneous tissue, unspecified, L72.3 - Sebaceous cyst Routine Culture w Gram Stain Today L08.9 - Local infection of the skin and subcutaneous tissue, unspecified, L72.3 - Sebaceous cyst AMB Incision & Drainage Today L08.9 - Local infection of the skin and subcutaneous tissue, unspecified, L72.3 - Sebaceous cyst Medications: New hydrocodone-acetaminophen 5-325 mg Partial Fill upon patient request. 1 tab PO Q4-6H PRN 30 tabs 0RF pain cephalexin 500 mg PO TID 30 caps 0RF Coding Level of Care Code New Pt Level 5 (43825) Diagnoses Infected sebaceous cyst L72.3; L08.9 CPT Codes I&D Drain - Drain 2: 99935-Buebtxta of Skin Abscess, complex ([id number])
[2023-08-24 14:26] VITALS: BMI 20.1
== END 2023-08-24 14:48 | disposition home or self-care (01) ==
PROVIDERS: PCP Nurse Practitioner Family; Referring Provider Nurse Practitioner Family; Visit Provider Surgery
DX: L08.9 Local infection of the skin and subcutaneous tissue, unspecified (principal); L72.3 Sebaceous cyst
CPT/HCPCS: 10061; 99204

== ENCOUNTER 2023-08-24 14:42 | Outpatient (REF) | payer OTHER, SELFPAY | END 2023-08-24 14:43 | disposition home or self-care (01) | LOC: HO.LAB 14:42 | PROVIDERS: Visit Provider Surgery | DX: Z13.89 Encounter for screening for other disorder (principal) ==

== ENCOUNTER → 2023-08-25 14:53 | Outpatient (BNVA) | payer OTHER, SELFPAY | PROVIDERS: PCP Nurse Practitioner Family; Visit Provider Surgery | DX: Z48.00 Encounter for change or removal of nonsurgical wound dressing (principal) | CPT/HCPCS: 99211 ==

== ENCOUNTER → 2023-08-26 14:50 | Outpatient (BNVA) | payer OTHER, SELFPAY | PROVIDERS: PCP Nurse Practitioner Family; Visit Provider Surgery | DX: Z48.01 Encounter for change or removal of surgical wound dressing (principal) | CPT/HCPCS: 99211 ==

== ENCOUNTER 2024-01-07 13:59 | Outpatient (REF) | payer OTHER, SELFPAY | END 2024-01-07 14:00 | disposition home or self-care (01) | LOC: HO.BBR 13:59 | PROVIDERS: PCP Nurse Practitioner Family; Visit Provider Internal Medicine Medical Oncology | DX: D75.1 Secondary polycythemia (principal) | CPT/HCPCS: 85014; 85018; 99195 ==

== ENCOUNTER 2024-01-14 13:57 | Outpatient (REF) | payer OTHER, SELFPAY | END 2024-01-14 13:58 | disposition home or self-care (01) | LOC: HO.BBR 13:57 | PROVIDERS: PCP Nurse Practitioner Family; Visit Provider Internal Medicine Medical Oncology | DX: D75.1 Secondary polycythemia (principal) | CPT/HCPCS: 85018; 99195 ==

== ENCOUNTER 2024-04-17 14:02 | Outpatient (REF) | payer OTHER, SELFPAY | END 2024-04-17 14:03 | disposition home or self-care (01) | LOC: HO.BBR 14:02 | PROVIDERS: PCP Nurse Practitioner Family; Visit Provider Internal Medicine Medical Oncology | DX: D75.1 Secondary polycythemia (principal) | CPT/HCPCS: 85014; 85018; 99195 ==

== ENCOUNTER 2024-05-01 10:35 | Outpatient (AMB) | payer OTHER, SELFPAY ==
--- NOTE | 2024-05-01 10:47 | A.OFFPC_ITS ---
Vital Signs 05/01/24 10:48 Height 5 ft 9 in Weight 137 lb 6 oz BMI 20.3 BP 122/68 Blood Pressure Location Rt brachial Position Sitting Respiration 16 Pulse 74 Pulse Source Pulse Oximeter Pulse Oximetry (%) 97 Oxygen Delivery Method Room Air Intake Visit Reasons: Annual PE Intake Note: Pt is here today for his Annual Physical. Allergies codeine [CODEINE] Allergy (Unknown, Verified 05/01/24 11:49) HIVES Medication List - Last Reconciled 05/01/24 [facility] amlodipine 10 mg PO DAILY lisinopril 40 mg PO DAILY meclizine 25 mg PO DAILY PRN 20 days metoprolol succinate ER 100 mg PO DAILY Tobacco use date assessed: 05/01/24 Fall risk assessment: No Falls in past year Last assessed Fall Risk: 05/01/24 Dental Screening Dental Screen Date: 05/01/24 Did you have a dental visit in the last 12 months?: Yes Did you have a dental problem in the last 6 months where you did not have access to dental care?: No Was dental information given to patient?: Patient has dentist HPI Annual PE HPI Details History of Present Illness PE: he patient is a 63-year-old male presenting with dizziness and urinary hesitancy. The dizziness is ongoing, with no associated nausea or vomiting. A prior neurology evaluation included a negative Lisa-Hallpike test. He reports upcoming hematology follow-up to address erythrocytosis and beginning phlebotomies. Ear canals were cleaned recently by an senior clinical study manager, resolving any contributing ear wax issues. Regarding urinary symptoms, the patient reports hesitancy, frequency, and incomplete bladder emptying. A digital rectal examination revealed a significantly enlarged prostate. He also has external hemorrhoids. He denies hematochezia but has a colonoscopy scheduled in the coming months. Smoking history indicates eligibility for a low-dose CT screening program. Examination also showed Dupuytren's Contracture on the left hand, affecting the 4th digit. Health Maintenance - Low-dose CAT scan due to smoking histo ry. - Scheduled colonoscopy in a few months. - Routine lab work ordered, including PS A. Social History - Smoking history (enrolled in low-dose CT scan program). - No other social determinants discussed . Review of Systems - Neurological: Denies nausea or vomitin g. - Gastrointestinal: Denies blood in stoo l or constipation/diarrhea. - Genitourinary: Reports urinary hesitan cy and frequency. -denies any BROWNE, cp or sob, fevers, chill s Physical Exam General: Cooperative, healthy appearing, comfortable, no acute distress and well developed Orientation: Patient oriented x3 Limitations: No limitations Head: Normal to inspection Ears: Hearing grossly normal bilaterally, ear canals are clean Nose: Normal external nose present Face and sinus: Normal facial exam Eyes: Appearance normal, both eyes and all related structures Neck: Normal visual inspection and Yes full ROM Respiratory: Normal respiratory effort and able to speak in complete sentences. Clear to auscultation bilaterally Cardiovascular: Regular rate and rhythm. Normal S1 and S2 GI: Normal to inspection. Soft to palpation and nontender. External hemorrhoids noted. Digital rectal exam revealed a very enlarged prostate. Skin: No rashes or lesions noted Neuro: Patient oriented x3. Negative Lisa-Hallpike, cn2-12 intact Extremities: Normal to inspection. Dupuytren's contracture noted in the left hand, especially to the 4th digit. Results Plan - Begin phlebotomy for erythrocytosis. - Prescribe meclizine for dizziness. - Order and review labs, including PSA, to evaluate symptoms further. - Refer to urology for further evaluatio n and management of enlarged prostate. - Consider referral to rehabilitation therapy aide apy for Dupuytren's Contracture. Patient was informed and verbally consented to the use of an ambient scribe for clinic note documentation during this visit. Discussion Notes I discussed the current issues of dizziness and urinary hesitancy with the patient. For the dizziness, a negative Parshall-Hallpike test suggests a peripheral cause. I recommended meclizine for symptomatic relief. The patient's erythrocytosis is managed with planned phlebotomies. The significant prostate enlargement noted on the exam indicates possible Benign Prostatic Hyperplasia, potentially explaining urinary symptoms. The patient was advised to undergo further evaluation by urology. For Dupuytren's Contracture noted on his left hand, I suggested a specialty consultation. We discussed his eligibility for a low-dose CT scan given his smoking history and the upcoming colonoscopy. Routine labs and PSA testing will provide additional information. Patient Instructions - Start meclizine for dizziness as presc ribed. - Follow up with hematology for phleboto my scheduling. - Arrange a urology visit for prostate e valuation. - Continue with scheduled colonoscopy. - Consider seeing an occupational therap ist for hand contracture. - No new dietary or activity modificatio ns were suggested, maintain current habits. - Monitor symptoms and report any new or worsening problems promptly. [facility] Medical History History of DVT (deep vein thrombosis) Tubular adenoma of colon Herniated disc Erythrocytosis Superficial thrombophlebitis of leg PVCs (premature ventricular contractions) Proteinuria Rosacea Erectile dysfunction Dyslipidemia PVD (peripheral vascular disease) Bigeminy HTN (hypertension) Tachycardia Surgical History History of colonoscopy History of back surgery History of appendectomy Family History Father No problems noted. Mother No problems noted. Sister No problems noted. Sister No problems noted. Son No problems noted. Brother No problems noted. Brother No problems noted. Brother No problems noted. Brother No problems noted. Social History Household Members: Spouse Housing: Apartment Are you a primary hospice patient care secretary to a significant other at home: No Do you presently have visiting nurse or other home services: No Alcohol intake: current Alcohol intake frequency: 0-2 drinks per day Alcohol type: beer Patient Tobacco Use Status: Current everyday Tobacco user Tobacco use type: Cigarette Cigarette Packs Per Day: 0.5 Years Smoked: (onset 17yo, 1/2ppd x 44yrs, 22pyh) e-Cigarette/Vaping Use: Never Used Second Hand Smoke Exposure: Yes Advance Directives Date on File: 07/09/20 service: No Current occupational status: employed Cognitive needs: No Hearing needs: No Vision needs: No Questionnaire PHQ-9 Over the last 2 weeks, how often have you been bothered by any of the following problems? 1. Little interest or pleasure in doing things: not at all 2. Feeling down, depressed, or hopeless: not at all 3. Trouble falling or staying asleep, or sleeping too much: nearly every day 4. Feeling tired or having little energy: not at all 5. Poor appetite or overeating: not at all 6. Feeling bad about yourself - or that you are a failure or have let yourself or your family down: not at all 7. Trouble concentrating on things, such as reading the newspaper or watching television: not at all 8. Moving or speaking so slowly that other people could have noticed. Or the opposite - being so fidgety or restless that you have been moving around a lot more than usual: not at all 9. Thoughts that you would be better off or of hurting yourself in some way: not at all Total score: 3 Depression Screening Interpretation: Negative Depression Screening Done: Yes 75228 - PHQ-9 Billing: Yes Source: Developed by Drs. Zack Steward, Marlen Cabral, Chintan Cisneros and colleagues, with an educational maria luz from [employer]. Thrive Questionnaire Date Thrive assessed: 05/01/24 I am a: Patient What is your living situation today?: I have a steady place to live Within the past 12 months, did the food you bought not last and you didn't have the money to get more?: I choose not to answer this question Within the past 12 months, did you worry whether your food would run out before you got money to buy more?: I choose not to answer this question Do you have trouble paying for medicines?: No Do you have trouble getting transportation to medical appointments?: No Do you have trouble paying your heating and electricity bill?: Yes Do you have trouble taking care of your child, family member or friend?: No Do you have trouble with day-to-day activities such as bathing, preparing meals, shopping, managing finances, etc.?: No Are you currently unemployed and looking for a job?: No Are you interested in more education?: No Please select the resources that you would like help with: None Currently or been in a relationship where the following occur: I choose not to answer THRIVE Score: 1 AUDIT C Alcohol Use Questionnaire (AUDIT-C) 1. How often do you have a drink containing alcohol?: 2-4 times a month 2. How many drinks containing alcohol do you have on a typical day when you are drinking?: 3 or 4 3. How often do you have six or more drinks on one occasion?: Monthly Total Score: 5 Score Reviewed/Action Taken: Yes ALEX-7 AMB Questionnaire ALEX-7 Date ALEX - 7 assessed: 05/01/24 Feeling nervous, anxious, or on edge: 0 = Not at all Not being able to stop or control worryin = Not at all Worrying too much about different things: 0 = Not at all Trouble relaxin = Not at all Being so restless that it is hard to sit still: 0 = Not at all Becoming easily annoyed or irritable: 0 = Not at all Feeling afraid as if something awful might happen: 0 = Not at all Total ALEX-7 score (0-4 normal; 5-9 mild; 10-14 moderate; 15-21 severe): 0 Source: Developed by Drs. Zack Steward, Marlen Cabral, Chintan Cisneros and colleagues, with an educational maria luz from [employer]. ALEX-7 Assessment Billing ALEX-7 Assessment Tool: ALEX-7 Assessment 29699 Physical exam (Primary Care) Vital Signs: Last Vital Signs Pulse 74 05/01/24 10:48 Resp 16 05/01/24 10:48 BP 122/68 05/01/24 10:48 Pulse Ox 97 05/01/24 10:48 Oxygen Delivery Method Room Air 05/01/24 10:48 BMI result Body Mass Index 20.3 Tobacco/Smoking Status: Tobacco use Status Tobacco use date assessed 05/01/24 05/01/24 11:03 Patient Tobacco Use Status Current everyday Tobacco 05/01/24 10:48 Tobacco use type Cigarette 05/01/24 10:48 e-Cigarette/Vaping Use Never Used 05/01/24 10:48 PHQ-9: PHQ-9 Score PHQ-9: Total score 3 05/01/24 11:23 Depression Screening Interpretation: Negative Thrive Assessment: Date of Thrive Assessment Date Thrive assessed 05/01/24 05/01/24 11:06 Currently or been in a relationship where the following occur: I choose not to answer Coding Level of Care Code Est Pt Prev Care >65y(14438) Diagnoses Dupuytren contracture M72.0 Physical exam Z00.00 Screening PSA (prostate specific antigen) Z12.5 Enlarged prostate N40.0 Dizziness R42 Additional Codes ALEX-7 Assessment Billing - ALEX-7 Assessment Tool: ALEX-7 Assessment 22319 ([id number]) PHQ-9 - 09391 - PHQ-9 Billing: Yes ([id number]) Assessment & Plan Assessment & Plan (1) Dupuytren contracture: Comment: left hand, 4th finger Code(s): M72.0 - Palmar fascial fibromatosis [Dupuytren] Category: Medical (2) Physical exam: Code(s): Z00.00 - Encounter for general adult medical examination without abnormal findings Category: Medical (3) Screening PSA (prostate specific antigen): Code(s): Z12.5 - Encounter for screening for malignant neoplasm of prostate Category: Medical (4) Enlarged prostate: Code(s): N40.0 - Benign prostatic hyperplasia without lower urinary tract symptoms Category: Medical (5) Dizziness: Code(s): R42 - Dizziness and giddiness Category: Medical Plan . Orders: Orders TSH reflex Free T4 Today Z00.00 - Encounter for general adult medical examination without abnormal findings Complete Blood Count Auto Diff Today Z00.00 - Encounter for general adult medical examination without abnormal findings Comprehensive [place]. Panel Fast Today Z00.00 - Encounter for general adult medical examination without abnormal findings UA CC w/rflx Micro + Cult Today Z00.00 - Encounter for general adult medical examination without abnormal findings Lipid Panel Today Z00.00 - Encounter for general adult medical examination without abnormal findings Prostate Specific Antigen Scr Today N40.0 - Benign prostatic hyperplasia without lower urinary tract symptoms, Z12.5 - Encounter for screening for malignant neoplasm of prostate Referrals Orthopedics Referral M72.0 - Palmar fascial fibromatosis [Dupuytren] Urology Referral N40.0 - Benign prostatic hyperplasia without lower urinary tract symptoms Medications: New tadalafil administer approximately 30min before sexual activity; do not use more than 1 dose per 24hrs 10 mg PO DAILY PRN 30 tabs 2RF sexual activity meclizine 25 mg PO DAILY 20 days PRN 20 tabs 0RF motion sickness
[2024-05-01 10:48] VITALS: BP 122/68; PULSE 74; RESP 16; O2SAT 97; BMI 20.3
== END 2024-05-01 11:47 | disposition home or self-care (01) ==
PROVIDERS: PCP Nurse Practitioner Family; Visit Provider Nurse Practitioner Family
DX: M72.0 Palmar fascial fibromatosis [Dupuytren] (principal); Z00.00 Encounter for general adult medical examination without abnormal findings; Z12.5 Encounter for screening for malignant neoplasm of prostate; N40.0 Benign prostatic hyperplasia without lower urinary tract symptoms; R42 Dizziness and giddiness

== ENCOUNTER → 2024-05-01 10:35 | Outpatient (BNVA) | payer OTHER, SELFPAY | PROVIDERS: PCP Nurse Practitioner Family; Visit Provider Nurse Practitioner Family | DX: Z00.00 Encounter for general adult medical examination without abnormal findings (principal); M72.0 Palmar fascial fibromatosis [Dupuytren]; R42 Dizziness and giddiness; N40.1 Benign prostatic hyperplasia with lower urinary tract symptoms; R39.11 Hesitancy of micturition | CPT/HCPCS: 96127 ==

== ENCOUNTER 2024-05-05 13:37 | Outpatient (REF) | payer OTHER, SELFPAY ==
[2024-05-05 16:13] LABS: Appearance Urine Clear; Color Urine Dark Yellow; Glucose Urine UA Negative (Negative); Leukocyte Esterase Urine Trace (Negative); Nitrite Urine Negative (Negative); UMIC TRIGGER UACC YES; Urine Blood Moderate (2+) (Negative); Urine Ketones Trace mg/dL (Negative); Urine Protein 30 (1+) mg/dL (Neg-Trace)
[2024-05-05 16:15] LABS: Bacteria Urine None Seen (None Seen); Hyaline Casts Urine 0-2 /LPF (0-2); Squamous Epithelial Cell Urine 0-2 /HPF (0-2); WBC Urine 0-5 /HPF (0-5)
[2024-05-05 16:15] LABS: MANUAL DIFF FLAG NO
[2024-05-05 16:22] LABS: Basophils Absolute Auto 0.2 X10*3/uL (0.0-0.2); Basophils Percent Auto 1.7 % (0-2); Eosinophils Absolute Auto 0.3 X10*3/uL (0.0-0.4); Eosinophils Percent Auto 2.3 % (0-4); Hematocrit 45.4 % (42.0-52.0); Hemoglobin 14.9 g/dl (14.0-18.0); Imm Gran Abs Auto 0.22 X10*3/uL (0.00-0.03); Imm Gran Pct Auto 1.7 % (0.0-0.4); Lymphocytes Absolute Auto 1.6 X10*3/uL (1.2-4.9); Lymphocytes Percent Auto 12.1 % (20-40); Mean Corpuscular HGB Conc 32.8 g/dl (31.0-36.0); Mean Corpuscular Volume 88.5 fL (80.0-98.0); Mean Platelet Volume 10.4 fL (9.4-12.4); Monocytes Percent Auto 7.7 % (2-11); Neutrophils Absolute Auto 9.8 x10*3/uL (2.0-8.3); Neutrophils Percent Auto 74.5 % (45-73); Platelet Count 738 X10*3/uL (160-400); Red Blood Count 5.13 X10*6/uL (4.60-5.80); Red Cell Distribution Width 15.1 % (11.0-16.0); White Blood Count 13.2 X10*3/uL (4.8-10.8)
[2024-05-05 16:41] LABS: Alanine Aminotransferase 14 U/L (0-40); Alkaline Phosphatase 52 U/L (39-117); Anion Gap 11 (12-20); Aspartate Amino Transferase 29 U/L (5-37); Bilirubin Total 0.8 mg/dL (0.0-1.0); Blood Urea Nitrogen 11 mg/dL (9-16); Calcium 8.9 mg/dL (8.4-10.2); Carbon Dioxide 26 mmol/L (22-29); Chloride 106 mmol/L (96-108); Cholesterol 157 mg/dL (<200); Estimated Glomerular Filt Rate > 60; Glucose Fasting 75 mg/dL (60-99); HDL Cholesterol 51 mg/dL (>40); LDL Cholesterol Calculated 84 mg/dL (<100); Potassium 3.8 mmol/L (3.3-5.1); Sodium 139 mmol/L (135-145); Total Protein 6.9 g/dL (6.5-8.0); Triglycerides 114 mg/dL (<150)
[2024-05-05 16:52] LABS: Prostate Specific Antigen Scr 1.86 ng/mL (<0.05-4.0)
== END 2024-05-05 13:38 | disposition home or self-care (01) ==
LOC: HO.HMGCLDS 13:37
PROVIDERS: PCP Nurse Practitioner Family; Visit Provider Nurse Practitioner Family
DX: Z00.00 Encounter for general adult medical examination without abnormal findings (principal); N40.0 Benign prostatic hyperplasia without lower urinary tract symptoms; Z12.5 Encounter for screening for malignant neoplasm of prostate; Z13.220 Encounter for screening for lipoid disorders; Z13.29 Encounter for screening for other suspected endocrine disorder
CPT/HCPCS: 36415; 80053; 80061; 81001; 84153; 84443; 85025

== ENCOUNTER 2024-05-10 13:46 | Outpatient (REF) | payer OTHER, SELFPAY ==
[2024-05-10 16:28] LABS: Appearance Urine Clear; Color Urine Dark Yellow; Glucose Urine UA Negative (Negative); Leukocyte Esterase Urine Trace (Negative); Nitrite Urine Negative (Negative); Specific Gravity - Urine 1.015 (1.005-1.025); UMIC TRIGGER UACC YES; Urine Blood Moderate (2+) (Negative); Urine Ketones Trace mg/dL (Negative); Urine Protein 100 (2+) mg/dL (Neg-Trace)
[2024-05-10 16:31] LABS: Bacteria Urine None Seen (None Seen); Hyaline Casts Urine 0-2 /LPF (0-2); Squamous Epithelial Cell Urine 0-2 /HPF (0-2); WBC Urine 0-5 /HPF (0-5)
== END 2024-05-10 13:47 | disposition home or self-care (01) ==
LOC: HO.HMGCLDS 13:46
PROVIDERS: PCP Nurse Practitioner Family; Visit Provider Nurse Practitioner Family
DX: Z00.00 Encounter for general adult medical examination without abnormal findings (principal)
CPT/HCPCS: 81001

== ENCOUNTER 2024-05-17 12:52 | Outpatient (REF) | payer OTHER, SELFPAY ==
--- NOTE | ~2024-05-17 | US_ITS ---
CLINICAL HISTORY: R42 - Dizziness and giddiness US Bilateral Carotid Duplex COMPARISON: None FINDINGS: No significant plaque within the common carotid arteries. Atherosclerotic plaque present at the carotid bulbs bilaterally causing less than 50 percent stenosis. Color Doppler and spectral tracings normal. Peak systolic velocities: Right CCA: 128 cm/s (85 cm/s distally). Right ICA: 95 cm/s. ICA/CCA ratio: 1.1 Right ECA: 107 cm/s. Right vertebral artery flow antegrade. Left CCA: 102 cm/s (83 cm/s distally). Left ICA: 92 cm/s. ICA/CCA ratio: 1.1 Left ECA: 100 cm/s. Left vertebral artery flow antegrade. IMPRESSION: 1. Normal carotid velocities, no significant stenosis (0-49% stenosis). This document has been electronically signed by: Derik Sheth MD on 05/17/2024 13:47:46
== END 2024-05-17 12:53 | disposition home or self-care (01) ==
LOC: HO.HMGCX 12:52
PROVIDERS: PCP Nurse Practitioner Family; Visit Provider Nurse Practitioner Family
DX: R42 Dizziness and giddiness (principal); D75.1 Secondary polycythemia; F17.200 Nicotine dependence, unspecified, uncomplicated
CPT/HCPCS: 93880

== ENCOUNTER → 2024-05-17 12:53 | Outpatient (BNV) | payer OTHER, SELFPAY | PROVIDERS: PCP Nurse Practitioner Family; Visit Provider Radiology Diagnostic Radiology | DX: R42 Dizziness and giddiness (principal) | CPT/HCPCS: 93880 ==

== ENCOUNTER 2024-06-02 13:55 | Outpatient (AMB) | payer OTHER, SELFPAY ==
--- NOTE | 2024-06-02 14:21 | MHC.OFFVIS ---
Vital Signs 06/02/24 14:23 Height 5 ft 9 in Weight 137 lb BMI 20.2 Handedness Right Intake Visit Reasons: New Pt - Left 4th Digit Dupytrens Contracture Intake Note: Michel is a 63 year old right hand dominant male who presents today as a new patient with complaints of Left hand ring finger contracture. Patient reports his finger has been lock for 7 - 8 months. He states that he is not having pain or discomfort, his finger just stays locked at all times. Patient states that he has tried any braces to help his finger. He mentions that he is having tingling in the volar aspect of the base of the palm for about the same time of the 4th digit. Allergies codeine [CODEINE] Allergy (Unknown, Verified 06/02/24 14:23) [facility] Medical History (Updated 06/02/24 @ 14:39 by RACHAEL Cruz) History of DVT (deep vein thrombosis) Tubular adenoma of colon Herniated disc Erythrocytosis Superficial thrombophlebitis of leg PVCs (premature ventricular contractions) Proteinuria Rosacea Erectile dysfunction Dyslipidemia PVD (peripheral vascular disease) Bigeminy HTN (hypertension) Tachycardia Surgical History History of colonoscopy History of back surgery History of appendectomy Family History Father No problems noted. Mother No problems noted. Sister No problems noted. Sister No problems noted. Son No problems noted. Brother No problems noted. Brother No problems noted. Brother No problems noted. Brother No problems noted. Social History Household Members: Spouse Housing: Apartment Are you a primary senior care manager to a significant other at home: No Do you presently have visiting nurse or other home services: No Alcohol intake: current Alcohol intake frequency: 0-2 drinks per day Alcohol type: beer Patient Tobacco Use Status: Current everyday Tobacco user Tobacco use type: Cigarette Cigarette Packs Per Day: 0.5 Years Smoked: (onset 17yo, 1/2ppd x 42yrs, 22pyh) e-Cigarette/Vaping Use: Never Used Second Hand Smoke Exposure: Yes Advance Directives Date on File: 07/09/20 service: No Current occupational status: employed Cognitive needs: No Hearing needs: No Vision needs: No Review of Systems Const All systems reviewed & are unremarkable except as noted in HPI and below Physical Exam Vital Signs: BMI result Body Mass Index 20.2 Assessment & Plan Assessment & Plan (1) Dupuytren's contracture of left hand: Code(s): M72.0 - Palmar fascial fibromatosis [Dupuytren] Category: Medical Plan History of Present Illness The patient is a 63-year-old male presenting with Dupuytren's contracture of the left ring finger. This condition has persisted for approximately seven to eight months without significant progression in severity. Referred by the primary care provider due to concern over the contracture. . The patient reports the ability to make a closed fist and has intact sensation in the hand. Review of Systems Physical Exam Patient is alert, oriented, and in no acute distress. Neuro: Normal sensation of the tips of all digits of the left hand at this time Vascular: Cap refill brisk Pain: No tenderness to palpation about the cord present in the left palm and volar ring finger No pain with range of motion of the right hand ROM: Patient is able to make a closed fist left hand without difficulty Unable to fully extend at the MCP and PIP joints of the left ring finger, with an approximately 30 degree contracture noted of the MCP joint and an approximately 70 degree contracture noted of the PIP joint Skin: No lacerations or abrasions. General: No ecchymosis, erythema, or evidence of infection. Psych: Appears grossly normal Affect normal Attitude cooperative Plan The plan involves referring the patient for an evaluation by a hand surgeon to discuss the possibility of surgical intervention. The recommended procedure is a partial fasciectomy, but the patient has been informed of the potential risks, including nerve and vessel damage, and post-operative recovery expectations. Xiaflex injections are also discussed. The patient's occupational requirements, particularly involving physical tasks, have been considered in planning his post-operative recovery period. Patient was informed and verbally consented to the use of an ambient scribe for clinic note documentation during this visit. All systems reviewed and are negative Discussion Notes I discussed with the patient the diagnosis of Dupuytren's contracture and the treatment options, emphasizing the benefits and risks associated with surgical intervention. I outlined the procedure of partial fasciectomy, explaining the risks involved, including potential injury to nerves and blood vessels. 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 The patient has agreed to see the hand surgeon, Dr. Younger, for further evaluation and expressed understanding of both surgical options and the associated risks. Patient Instructions - Follow up with the appointment for evaluation with Dr. Younger, the hand surgeon. - Follow-up sooner with any acute concerns - Consider limitations on work activities post-surgery - Seek immediate care if experiencing new numbness, weakness, or severe pain in the affected hand. Coding Level of Care Code New Pt Level 3 (49065) Diagnoses Dupuytren's contracture of left hand M72.0
[2024-06-02 14:23] VITALS: BMI 20.2
== END 2024-06-02 14:31 | disposition home or self-care (01) ==
LOC: HO.HOS 13:55
PROVIDERS: PCP Nurse Practitioner Family
DX: M72.0 Palmar fascial fibromatosis [Dupuytren] (principal)
CPT/HCPCS: 99203

== ENCOUNTER → 2024-06-02 13:55 | Outpatient (BNVA) | payer OTHER, SELFPAY | PROVIDERS: PCP Nurse Practitioner Family ==

== ENCOUNTER 2024-06-21 14:35 | Outpatient (AMB) | payer OTHER, SELFPAY ==
--- NOTE | 2024-06-21 14:53 | A.OFFVIS_ITS ---
Intake Visit Reasons: BPH Intake Note: New Patient presents for initial visit for BPH Urology Medications: tadalafil Blood Thinner: none PVR: 0ml's Ged Teacher Required: No Accompanied by: Self / Same As Patient Allergies codeine [CODEINE] Allergy (Unknown, Verified 06/21/24 15:23) HIVES Medication List - Last Reconciled 06/21/24 by FRANK Olivera- amlodipine 10 mg PO DAILY lisinopril 40 mg PO DAILY meclizine 25 mg PO DAILY PRN 20 days metoprolol succinate ER 100 mg PO DAILY tadalafil 10 mg PO DAILY PRN HPI Comments Details: Michel is a very pleasant 63-year-old male patient of Dr. Olivo. He has a past medical history of DVT, herniated disc, PVCs, proteinuria, rosacea, ED, dyslipidemia, peripheral vascular disease, bigeminy, hypertension, and tachycardia. He presents to the office today as a new patient for enlarged prostate. In discussion with the patient today he reports having followed up with his PCP for an annual visit at which time a MARC was performed and a enlarged prostate was noted and recommendations were made for urology referral for further assessment evaluation. He reports no bothersome urinary issues or concerns. In office urinalysis results reviewed with the patient today 2+ protein as well as 3+ microscopic hematuria. PVR 0 mLs. When asked he does report a history of nicotine dependence over the last 10 years. He reports smoking approximately half a pack of cigarettes per day. He denies urinary urgency, urinary frequency, incontinence, nocturia, hematuria, dysuria, foul smelling urine, changes to urinary stream, flank pain, fever, and or chills. He is happy with her current voiding parameters. We discussed at length enlarged prostate as well as microscopic hematuria. We discussed further treatment options and risks and benefits of these treatment options. I discussed reasons for blood in the urine may include but are not limited to kidney stones, cancer in the urinary tract, BPH, kidney stone disease or inflammatory conditions of the urinary tract. I have discussed workup to include cystoscopy evaluation. Patient reports he has an upcoming CT urogram July 11. In review of patient's chart it appears PSA 05/02 1.9. He otherwise offers no other issues or concerns at this time. Plan Given the absence of significant urinary symptoms and a PSA level within normal limits, the current approach is to monitor the Benign Prostatic Hyperplasia without immediate intervention. However, due to the presence of microscopic hematuria and the patient's significant smoking history, a CT scan is advised for a thorough evaluation of the urinary system to rule out urological malignancies, particularly bladder cancer as well as in office cystoscopy. Smoking cessation was discussed as a measure to decrease future risks. Additionally, a referral to a web developer programmer may be pursued following the diagnostic outcomes, as there is concern due to kidney involvement suggested by protein in the urine. The patient consents to the diagnostic plan and is aware of the importance of timely diagnostics. Patient was informed and verbally consented to the use of an ambient scribe for clinic note documentation during this visit. Discussion Notes I discussed at length with the patient the implications of his current health status, particularly focusing on the presence of an enlarged prostate and the significance of microscopic hematuria against a background of a notable smoking history. It was explained that while the PSA level is within a safe range, the history of smoking elevates the risk for bladder cancer and hence justifies the recommendation for a CT scan over an ultrasound. The benefits of a CT scan, including its ability to visualize the ureters, were reviewed, providing a comprehensive understanding of any potential underlying issues. The patient was advised to consider smoking cessation to mitigate future risks of urological and pulmonary diseases. Follow-up discussions involved the potential nephrology referral for proteinuria, highlighting the need for further diagnostic clarity. Consent was obtained for the next steps, acknowledging the discussed risks, benefits, and potential alternatives. [facility] Medical History (Updated 06/21/24 @ 15:23 by GENEVIEVE Olivera) History of DVT (deep vein thrombosis) Tubular adenoma of colon Herniated disc Erythrocytosis Superficial thrombophlebitis of leg PVCs (premature ventricular contractions) Proteinuria Rosacea Erectile dysfunction Dyslipidemia PVD (peripheral vascular disease) Bigeminy HTN (hypertension) Tachycardia Surgical History History of colonoscopy History of back surgery History of appendectomy Family History Father No problems noted. Mother No problems noted. Sister No problems noted. Sister No problems noted. Son No problems noted. Brother No problems noted. Brother No problems noted. Brother No problems noted. Brother No problems noted. Social History Household Members: Spouse Housing: Apartment Are you a primary home care coordinator to a significant other at home: No Do you presently have visiting nurse or other home services: No Alcohol intake: current Alcohol intake frequency: 0-2 drinks per day Alcohol type: beer Patient Tobacco Use Status: Current everyday Tobacco user Tobacco use type: Cigarette Cigarette Packs Per Day: 0.5 Years Smoked: (onset 17yo, 1/2ppd x 44yrs, 22pyh) e-Cigarette/Vaping Use: Never Used Second Hand Smoke Exposure: Yes Advance Directives Date on File: 07/09/20 service: No Current occupational status: employed Cognitive needs: No Hearing needs: No Vision needs: No Review of Systems Eyes Reports no additional complaints ENT Reports no additional complaints Card Reports as per HPI GI Reports no additional complaints Reports as per HPI Musc Reports as per HPI Neuro Reports as per HPI Psych Reports no additional complaints Endo Reports no additional complaints Rad/Lymph Reports as per HPI Aller/Immun Reports as per HPI Physical Exam Const General: cooperative, comfortable, no acute distress, well developed, alert and awake Orientation/consciousness: patient oriented x3 Limitations: no limitations HEENT Head: Yes normal to inspection, Yes normocephalic and Yes atraumatic Ears: hearing grossly normal bilaterally Eyes General: appearance normal, both eyes and all related structures Neck Neck: Yes normal visual inspection and Yes trachea midline Chest Chest palpation & inspection: normal inspection of the chest Resp Effort & Inspection: normal respiratory effort and able to speak in complete sentences Cardio Rate: regular rate GI Inspection: Yes normal to inspection General: Yes no CVA tenderness Back/Spine/Pelvis Back: no CVA tenderness Skin General skin exam: no rashes or lesions noted Neuro General: patient oriented x3 Extrem General: Yes normal to inspection Psych Appearance: grossly normal and well kempt Mental Status: mental status grossly normal Speech and movement: Normal speech and movement present and Clear speech present Affect: normal affect Attitude: cooperative Thought process: Normal thought process present Thought content: Normal thought content present Insight: Fair insight present (Psych) Judgement: Fair judgement present (Psych) Office Procedures Post Void Residual Post Residual Void Post Void Residual (PVR): 0 [id number] Void Residual by ultrasound Results AMB Urinalysis, Automated UA Leukoctes 0 Anjelica/uL Last Edit by Dusty Adamson on 06/21/24 15:12 UA Nitrite Last Edit by [employer] Adamson on 06/21/24 15:12 UA Urobilinogen 0.2 mg/dL Last Edit by Stretchan[employer] on 06/21/24 15:12 UA Protein 100 mg/dL Last Edit by Stretchanais on 06/21/24 15:12 UA pH 6.0 Last Edit by [employer] on 06/21/24 15:12 UA Blood 200 Sarmad/uL Last Edit by Stretchanais on 06/21/24 15:12 UA Specific [place] 1.025 Last Edit by Stretchanais on 06/21/24 15:12 UA Ketone Last Edit by Stretchanais on 06/21/24 15:12 UA Bilirubin 0 mg/dL Last Edit by Stretchanais on 06/21/24 15:12 UA Glucose 0 mg/dL Last Edit by [employer] on 06/21/24 15:12 Results Reviewed Results Reviewed: Laboratory Last Values Urine pH (Auto) 6.0 06/21/24 15:12 Specific [place] (Auto) 1.025 06/21/24 15:12 Urine Protein (Auto) 100 mg/dL 06/21/24 15:12 Glucose (UA)(Auto) 0 mg/dL 06/21/24 15:12 Urine Blood (Auto) 200 Sarmad/uL 06/21/24 15:12 Urine Bilirubin (Auto) 0 mg/dL 06/21/24 15:12 Urine Urobilinogen (Auto) 0.2 mg/dL 06/21/24 15:12 Leukocyte Esterase (Auto) 0 Anjelica/uL 06/21/24 15:12 Assessment & Plan Assessment & Plan (1) Microhematuria: Code(s): R31.29 - Other microscopic hematuria Category: Medical (2) Nicotine dependence: Code(s): F17.200 - Nicotine dependence, unspecified, uncomplicated Category: Medical (3) Enlarged prostate: Code(s): N40.0 - Benign prostatic hyperplasia without lower urinary tract symptoms Category: Medical Plan In office urinalysis results reviewed with the patient today; as noted above; will send for urine cytology. We discussed at length potential causes of enlarged prostate as well as further treatment options and risks and benefits of these treatment options. We discussed potential causes of microscopic hematuria as well as further workup in risks and benefits of these interventions. He currently denies any bothersome urinary issues or concerns. He reports be happy with current voiding parameters. We discussed importance of limiting/quitting nicotine dependence for overall health and well-being. Patient with scheduled CT urogram July 11 BUN and creatinine ordered Will refer to Nephrology for proteinuria Follow-up in 1-3 months with imaging and labs to be completed prior; or sooner with any issues, concerns, and or questions. Orders: Orders Blood Urea Nitrogen Today R39.15 - Urgency of urination AMB Urinalysis Automated Today Z13.9 - Encounter for screening, unspecified AMB Post Void Residual by ultrasound Today N40.0 - Benign prostatic hyperplasia without lower urinary tract symptoms Urine Cytology Today R31.29 - Other microscopic hematuria Creatinine Today R39.15 - Urgency of urination Referrals Nephrology Referral R80.9 - Proteinuria, unspecified Patient Instructions: The patient had an opportunity to ask questions regarding the treatment plan. All questions were answered. Physical exam, labs, and imaging were discussed and reviewed in detail. As well as risks, benefits, and discussion of treatment choices. No major barriers to understanding were identified. The patient expressed understanding and agreement with the above treatment plan. The patient was made aware they should contact our office by phone for worsening of their current condition, the appearance of new symptoms, or with any questions or concerns. Compliance is encouraged with any medications and follow up testing that is ordered. It is a privilege to be allowed the opportunity to participate in? your urological care.? Again, if you have any questions or concerns If you have any questions or concerns please do not hesitate to contact me. The office is [phone]. This note is constructed using voice recognition software. While every effort has been made to ensure accuracy acid supervisor errors may have been included. Yours sincerely, Cecilia Cobb, [employer] Coding Level of Care Code New Pt Level 3 (51377) Diagnoses Microhematuria R31.29 Nicotine dependence F17.200 Enlarged prostate N40.0 CPT Codes Post Residual Void - PVR CPT Code: 03157-Owog Void Residual by ultrasound ([id number])
== END 2024-06-21 15:24 | disposition home or self-care (01) ==
LOC: HO.HUSH 14:36
PROVIDERS: PCP Nurse Practitioner Family; Visit Provider Nurse Practitioner Family
DX: R31.29 Other microscopic hematuria (principal); F17.200 Nicotine dependence, unspecified, uncomplicated; N40.0 Benign prostatic hyperplasia without lower urinary tract symptoms; Z13.9 Encounter for screening, unspecified
CPT/HCPCS: 99203

== ENCOUNTER 2024-06-21 14:35 | Outpatient (REF) | payer OTHER, SELFPAY ==
[2024-06-21 16:45] LABS: Urine Cytology See Pathology rpt
== END 2024-06-21 14:36 | disposition home or self-care (01) ==
LOC: HO.LNP 14:35
PROVIDERS: PCP Nurse Practitioner Family; Visit Provider Nurse Practitioner Family
DX: R31.29 Other microscopic hematuria (principal)
CPT/HCPCS: 51798; 81003; 88112

== ENCOUNTER 2024-07-07 13:05 | Outpatient (REF) | payer OTHER, SELFPAY ==
[2024-07-07 16:27] LABS: Blood Urea Nitrogen 13 mg/dL (9-16); Estimated Glomerular Filt Rate > 60
== END 2024-07-07 13:06 | disposition home or self-care (01) ==
LOC: HO.HMGCLDS 13:05
PROVIDERS: PCP Nurse Practitioner Family; Referring Provider Nurse Practitioner Family; Visit Provider Nurse Practitioner Family
DX: R39.15 Urgency of urination (principal)
CPT/HCPCS: 36415; 82565; 84520

== ENCOUNTER 2024-07-07 13:05 | Outpatient (AMB) | payer OTHER, SELFPAY ==
--- NOTE | 2024-07-07 13:09 | A.OFFVIS_ITS ---
Vital Signs 07/07/24 13:21 Height 5 ft 9 in Weight 138 lb BMI 20.4 BP 126/60 Blood Pressure Location Lt brachial Position Sitting Pulse 94 Pulse Source Pulse Oximeter Pulse Oximetry (%) 97 Oxygen Delivery Method Room Air Intake Visit Reasons: [place] new pt r/s 03/22/24 Intake Note: NEW PATIENT for colo screening Prior hx of colo '19 w/ Patel. CC; Pt denies any GI sx or concerns at this time. Paving Contractor Required: No Accompanied by: Self / Same As Patient Allergies codeine [CODEINE] Allergy (Unknown, Verified 07/07/24 13:09) HIVES HPI HPI [place] new pt r/s 03/22/24: Details: 63 year old? male with past medical history of leukocytosis, erythrocytosis, thrombophlebitis, hypertension, PVCs is here today for pre colonoscopy screening.? Patient was sent to us by his PCP.? Last colonoscopy in March of [address] Sweeney, 1 tubular adenoma found, 5 years recall recommended. Patient denies any gastrointestinal symptoms in the past or at present.? Denies any personal or family history of gastrointestinal disease, colon polyps, or CRC.? Denies history of difficulty with sedation or anesthesia in the past.? Negative for history of sleep apnea.? Denies any history of renal, pulmonary, or hepatic disease.??Patient reports more frequent palpitations, lasting longer, referral sent to see Cardiology by PCP. Patient has appointment in September with director of clinical services. Patient denies any shortness of breath or chest pain. No history of infectious? diseases like hepatitis A, B, C, HIV or tuberculosis.? Patient is not on any anticoagulation [facility]LY [facility] Medical History History of DVT (deep vein thrombosis) Tubular adenoma of colon Herniated disc Erythrocytosis Superficial thrombophlebitis of leg PVCs (premature ventricular contractions) Proteinuria Rosacea Erectile dysfunction Dyslipidemia PVD (peripheral vascular disease) Bigeminy HTN (hypertension) Tachycardia Surgical History History of colonoscopy History of back surgery History of appendectomy Family History Father No problems noted. Mother No problems noted. Sister No problems noted. Sister No problems noted. Son No problems noted. Brother No problems noted. Brother No problems noted. Brother No problems noted. Brother No problems noted. Social History Household Members: Spouse Housing: Apartment Are you a primary tire care manager to a significant other at home: No Do you presently have visiting nurse or other home services: No Alcohol intake: current Alcohol intake frequency: 0-2 drinks per day Alcohol type: beer Patient Tobacco Use Status: Current everyday Tobacco user Tobacco use type: Cigarette Cigarette Packs Per Day: 0.5 Years Smoked: (onset 17yo, 1/2ppd x 44yrs, 22pyh) e-Cigarette/Vaping Use: Never Used Second Hand Smoke Exposure: Yes Advance Directives Date on File: 07/09/20 service: No Current occupational status: employed Cognitive needs: No Hearing needs: No Vision needs: No Review of Systems Const Denies weight gain and Denies weight loss ENT Reports no additional complaints, Denies dysphagia and Denies odynophagia Card Reports no additional complaints Resp Reports no additional complaints GI Denies abdominal pain, Denies belching, Denies melena, Denies bloating, Denies change in bowel habits, Denies dysphagia, Denies excessive flatus, Denies dyspepsia, Denies heartburn, Denies diarrhea, Denies loose stools, Denies nausea, Denies odynophagia and Denies vomiting Reports no additional complaints Musc Reports no additional complaints Neuro Reports no additional complaints Psych Reports no additional complaints Endo Reports no additional complaints Physical Exam Vital Signs: Last Vital Signs Pulse 94 07/07/24 13:21 BP 126/60 07/07/24 13:21 Pulse Ox 97 07/07/24 13:21 Oxygen Delivery Method Room Air 07/07/24 13:21 BMI result Body Mass Index 20.4 Const General: healthy appearing, no acute distress and well developed Nutritional Appearance: well nourished Orientation/consciousness: patient oriented x3 Resp Effort & Inspection: normal respiratory effort, able to speak in complete sentences, no tracheal deviation and symmetric chest movement Auscultation: clear to auscultation bilaterally Cardio Rate: regular rate GI Inspection: Yes normal to inspection and No distended Palpation (GI): Soft to palpation, not firm, nontender and No hepatosplenomegaly present Auscultation: normal bowel sounds General: Yes no CVA tenderness Back/Spine/Pelvis Back: no CVA tenderness Skin General skin exam: elasticity normal, turgor normal and dry skin Neuro General: patient oriented x3 Psych Appearance: grossly normal Mental Status: mental status grossly normal Assessment & Plan Assessment & Plan (1) Screening for colon cancer: Code(s): Z12.11 - Encounter for screening for malignant neoplasm of colon Category: Medical Plan Patient denies any GI, cardiac or respiratory symptoms.? Denies any issues with anesthesia in the past.? Denies any history of sleep apnea.? More frequent palpitations lasting longer without shortness of breath or chest pain. Patient has initial consultation with Cardiology in September. Will send a message to our parking regulation enforcement officer to at screening to this appointment. No history infectious diseases in the past or present.? Not on any anticoagulation therapy.? No family or personal history of colon cancer.? Patient denies melena, hematochezia, unintentional weight loss or ribbon like stools.? Discussed at length the pre- procedure,? prep, diet & medications as well as what to expect prior, during and after the procedure.?? Stressed the importance of good bowel prep.? Recommended the use of Vaseline or Calmoseptine OTC & baby wipes with bowel movements to promote comfort.? ?Patient verbalizes understanding and agrees to plan of care.? He was given the opportunity to ask questions and all questions answered.? We will see him after the procedure Medications: New bisacodyl (Dulcolax (bisacodyl)) take 4 tabs at noon the day before your colonoscopy 20 mg (4 x 5 mg) PO ONCE 1 day 4 tabs 0RF Z12.11 - Encounter for screening for malignant neoplasm of colon polyethylene glycol 3350 (Miralax) As directed by gastroenterology department at [facility] 238 grams PO ONCE 238 grams 0RF Z12.11 - Encounter for screening for malignant neoplasm of colon Coding Level of Care Code New Pt Level 3 (03229) Diagnoses Screening for colon cancer Z12.11 Time Spent (min) 40 Comment 30 minutes spent with patient and additional 10 minutes spent reviewing his records
[2024-07-07 13:21] VITALS: BP 126/60; PULSE 94; O2SAT 97; BMI 20.4
== END 2024-07-07 13:50 | disposition home or self-care (01) ==
LOC: HO.HGI 13:06
PROVIDERS: PCP Nurse Practitioner Family; Visit Provider Nurse Practitioner Family
DX: Z12.11 Encounter for screening for malignant neoplasm of colon (principal); Z01.818 Encounter for other preprocedural examination
CPT/HCPCS: 99202

== ENCOUNTER 2024-07-11 15:07 | Outpatient (REF) | payer OTHER, SELFPAY ==
--- NOTE | ~2024-07-11 | CT_ITS ---
CLINICAL HISTORY: R31.29 - Other microscopic hematuria CT ABDOMEN AND PELVIS WITH AND WITHOUT CONTRAST Comparison: None Findings: No basilar consolidation or pleural effusion. Bilateral renal excretion with no hydronephrosis or urolithiasis. Normal renal cortical enhancement. Tiny renal cortical hypodensities bilaterally are too small to accurately characterize. Statistically, there are most likely cysts. No enhancing solid renal cortical lesion. Mild hepatic steatosis. Mild hepatosplenomegaly. The right hepatic lobe measures 17.5 cm. The spleen measures 13.2 cm. There are tiny hypodensities in the liver that are too small to accurately characterize. Gallbladder, pancreas and right adrenal gland are unremarkable. There is a 1.4 cm fat density left adrenal nodule consistent with a benign adenoma. Atherosclerotic changes in the aorta. No AAA. No lymphadenopathy. No bowel obstruction, pneumoperitoneum, or pneumatosis. No ascites. No significant mesenteric or paracolic edema. Mild sigmoid diverticulosis. The appendix is not seen. The prostate is heterogeneous measuring 4.4 x 3.9 x 4.8 cm. There is urinary bladder base invasion best visualized on sagittal image 51, series 7. Mild diffuse urinary bladder wall thickening. Multiple pelvic phleboliths. No destructive osseous lesion. Obliteration of the L5-S1 disc space with bridging osteophytes. IMPRESSION: 1. No acute obstructive uropathy or urolithiasis. 2. No suspicious renal cortical lesion. 3. Prostatomegaly with urinary bladder base invasion results in diffuse urinary bladder wall thickening. 4. No obstructive or acute inflammatory changes in the gastrointestinal tract. This document has been electronically signed by: Gianna Sutherland DO on 07/12/2024 15:53:09
[2024-07-11] MEDS: iohexoL 350 MG/ML 75 ML INFUS..BTL 85 ML IV (16:44)
== END 2024-07-11 15:08 | disposition home or self-care (01) ==
LOC: HO.CT 15:07
PROVIDERS: PCP Nurse Practitioner Family; Visit Provider Nurse Practitioner Family
DX: R31.29 Other microscopic hematuria (principal); N40.0 Benign prostatic hyperplasia without lower urinary tract symptoms
CPT/HCPCS: 74178; Q9967

== ENCOUNTER → 2024-07-11 15:09 | Outpatient (BNV) | payer OTHER, SELFPAY | PROVIDERS: PCP Nurse Practitioner Family; Visit Provider Radiology Diagnostic Radiology | DX: N40.0 Benign prostatic hyperplasia without lower urinary tract symptoms (principal); N32.89 Other specified disorders of bladder | CPT/HCPCS: 74178 ==

== ENCOUNTER 2024-07-17 13:52 | Outpatient (REF) | payer OTHER, SELFPAY | END 2024-07-17 13:53 | disposition home or self-care (01) | LOC: HO.BBR 13:52 | PROVIDERS: PCP Nurse Practitioner Family; Visit Provider Internal Medicine Medical Oncology | DX: D45 Polycythemia vera (principal) | CPT/HCPCS: 85014; 85018; 99195 ==

== ENCOUNTER 2024-07-18 14:15 | Outpatient (AMB) | payer OTHER, SELFPAY ==
--- NOTE | 2024-07-18 14:24 | A.OFFVIS_ITS ---
Intake Visit Reasons: OV- L Dupuytrens fasciectomy Intake Note: Michel is a 63 year old male who presents today for a follow up of left hand Dupuytrens. Patient was last seen in office with RACHAEL Tim and was referred to Dr. Younger to further evaluate and discuss surgical options and risks. He states no change in his symptoms since his last visit. Allergies codeine [CODEINE] Allergy (Unknown, Verified 07/18/24 14:29) HIVES HPI HPI OV- L Dupuytrens fasciectomy: Details: Michel is a 63 year old right hand dominant man who presents for a left ring finger contracture. He complains of a contracture of his left ring finger, which has been worsening for several years. He has difficulty with gripping activities, and says this has been worse for ~7 months now He has a Hx of PVD & of DVT. He denies any blood thinners. 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 He does not want to be out of work for a long period of time if he has surgery. [facility], [facility] Medical History History of DVT (deep vein thrombosis) Tubular adenoma of colon Herniated disc Erythrocytosis Superficial thrombophlebitis of leg PVCs (premature ventricular contractions) Proteinuria Rosacea Erectile dysfunction Dyslipidemia PVD (peripheral vascular disease) Bigeminy HTN (hypertension) Tachycardia Surgical History History of colonoscopy History of back surgery History of appendectomy Family History Father No problems noted. Mother No problems noted. Sister No problems noted. Sister No problems noted. Son No problems noted. Brother No problems noted. Brother No problems noted. Brother No problems noted. Brother No problems noted. Social History Household Members: Spouse Housing: Apartment Are you a primary physician assistant primary care to a significant other at home: No Do you presently have visiting nurse or other home services: No Alcohol intake: current Alcohol intake frequency: 0-2 drinks per day Alcohol type: beer Patient Tobacco Use Status: Current everyday Tobacco user Tobacco use type: Cigarette Cigarette Packs Per Day: 0.5 Years Smoked: (onset 17yo, 1/2ppd x 44yrs, 22pyh) e-Cigarette/Vaping Use: Never Used Second Hand Smoke Exposure: Yes Advance Directives Date on File: 07/09/20 service: No Current occupational status: employed Cognitive needs: No Hearing needs: No Vision needs: No Review of Systems Const All systems reviewed & are unremarkable except as noted in HPI and below Physical Exam Const General: cooperative, healthy appearing and no acute distress Orientation/consciousness: patient oriented x3 HEENT Head: Yes normocephalic and Yes atraumatic Eyes EOM: EOMs intact bilaterally Resp Effort & Inspection: normal respiratory effort and able to speak in complete sentences Cardio Jugular venous distension: no JVD Skin General skin exam: turgor normal Rashes: no rashes Neuro General: patient oriented x3 Extrem Other: Evaluation of Left Upper Extremity: The patient is alert, oriented, and in no acute distress Neuro: Median, Ulnar, Radial nerves motor and sensory intact and sensation is normal to the tips of all digits Vascular: Cap refill brisk ROM: He can bring his fingers closed to a fist He can extend all his fingers, except for his ring finger Dupuytrens contracture of the ring finger: Central cord extending from the palm to the middle phalanx MCP 40/PIP 80 When I flex the MCP joint to90 degrees, the PIP contracture improves to 30 degrees Skin: No lacerations or abrasions. General: No Ecchymosis. No Erythema or evidence of infection. Psych Appearance: grossly normal Affect: normal affect Attitude: cooperative Assessment & Plan Assessment & Plan (1) Dupuytren's contracture of left hand: Code(s): M72.0 - Palmar fascial fibromatosis [Dupuytren] Category: Medical (2) Nicotine dependence: Code(s): F17.200 - Nicotine dependence, unspecified, uncomplicated Category: Medical Plan Assessment & Plan: 1. Left ring finger dupuytrens contracture MCP 40/PIP 80 I educated him about this condition I had a long discussion with him concerning operative & non-operative treatment options The patient would like to proceed with surgery. He is concerned about taking time off from work as he does not have any sick leave The risks and benefits of operative treatment were discussed with the patient and the patient wishes to proceed with surgery. These risks include, but are not limited to risk of damage to blood vessels, nerves, tendons, infection, recurrence, incomplete relief of preoperative symptoms, persistent pain, possible need for further surgery and the risks associated with regional blocks and anesthesia. The plan is to take the patient to the operating room sometime in the next few months for the following procedures: 1. Left ring finger partial dupuytrens fasciectomy in the palm, under local All of the preoperative paperwork including the consent was reviewed today. All the patient's questions were answered. The patient understands that they will be contacted by our neurosurgery spine physician soon to schedule this procedure. Due to his work entering its busy season, he is anticipating this be done sometime in October/November He denies Diabetes, blood thinners, asthma, lung, kidney issues He has a Hx of PVD & DVT. Scribed for Kay Younger MD by Omar Steward, medical operations supervisor, on 07/18/24 at 2:40 PM, EST. Coding Level of Care Code Est Pt Level 3 (86761) Diagnoses Dupuytren's contracture of left hand M72.0 Nicotine dependence F17.200
== END 2024-07-18 15:02 | disposition home or self-care (01) ==
LOC: HO.HOS 14:16
PROVIDERS: PCP Nurse Practitioner Family; Visit Provider Orthopaedic Surgery
DX: M72.0 Palmar fascial fibromatosis [Dupuytren] (principal); F17.200 Nicotine dependence, unspecified, uncomplicated
CPT/HCPCS: 99214

== ENCOUNTER → 2024-07-18 14:15 | Outpatient (BNVA) | payer OTHER, SELFPAY | PROVIDERS: PCP Nurse Practitioner Family; Visit Provider Orthopaedic Surgery ==

== ENCOUNTER 2024-07-27 13:53 | Outpatient (AMB) | payer OTHER, SELFPAY ==
--- NOTE | 2024-07-27 14:13 | HO.NEPHOV ---
Vital Signs 07/27/24 14:14 Height 5 ft 9 in Weight 136 lb 8 oz BMI 20.2 BP 110/62 Blood Pressure Location Lt brachial Position Sitting Pulse 83 Pulse Source Pulse Oximeter Pulse Oximetry (%) 96 Oxygen Delivery Method Room Air Intake Visit Reasons: INT: Proteinuria-Conf [employer] Program Coordinator Required: No Accompanied by: Spouse Allergies codeine [CODEINE] Allergy (Unknown, Verified 07/27/24 14:14) HIVES HPI Comments Details: I had the pleasure of seeing Michel in consultation for proteinuria. He has H/O M/S hematuria and long standing hypertension. He has H/O dyslipidemia as well peripheral vascular disease. He had no H/O macroscopic hematuria or sensori neural deafness. There is no family H/O deafness, AKD, ESRD or renal transplantation. He is not on any blood thinners. He has not had a cystoscopy. His renal function has been normal. He has no H/O recurrent sinusitis, epistaxis, joint swelling, photosensitvity or edema. He smokes approximately half a pack of cigarettes per day. He has no H/O recurrent UTI or renal calculi.His BP has been goal on current medications. He did not have any specific complaints at the time of this office visit. [facility] Medical History History of DVT (deep vein thrombosis) Tubular adenoma of colon Herniated disc Erythrocytosis Superficial thrombophlebitis of leg PVCs (premature ventricular contractions) Proteinuria Rosacea Erectile dysfunction Dyslipidemia PVD (peripheral vascular disease) Bigeminy HTN (hypertension) Tachycardia Surgical History History of colonoscopy History of back surgery History of appendectomy Family History Father No problems noted. Mother No problems noted. Sister No problems noted. Sister No problems noted. Son No problems noted. Brother No problems noted. Brother No problems noted. Brother No problems noted. Brother No problems noted. Social History (Updated 07/27/24 @ 14:13 by Crystal Maxwell MA) Household Members: Spouse Housing: Apartment Are you a primary career coordinator to a significant other at home: No Do you presently have visiting nurse or other home services: No Alcohol intake: current Alcohol intake frequency: 0-2 drinks per day Alcohol type: beer Patient Tobacco Use Status: Current everyday Tobacco user Tobacco use type: Cigarette Cigarette Packs Per Day: 0.5 Years Smoked: (onset 17yo, 1/2ppd x 44yrs, 22pyh) e-Cigarette/Vaping Use: Never Used Second Hand Smoke Exposure: Yes Advance Directives Date on File: 07/09/20 service: No Current occupational status: employed Cognitive needs: No Hearing needs: No Vision needs: No Review of Systems Const All systems reviewed & are unremarkable except as noted in HPI and below Physical Exam Vital Signs: Last Vital Signs Pulse 83 07/27/24 14:14 BP 110/62 07/27/24 14:14 Pulse Ox 96 07/27/24 14:14 Oxygen Delivery Method Room Air 07/27/24 14:14 BMI result Body Mass Index 20.2 Const General: comfortable and no acute distress Orientation/consciousness: patient oriented x3 HEENT Head: Yes normocephalic Mouth: Normal oral and palatal mucosa present Eyes EOM: EOMs intact bilaterally Neck Neck: Yes supple Resp Auscultation: clear to auscultation bilaterally Cardio Jugular venous distension: no JVD Rate: regular rate GI Palpation (GI): Soft to palpation Auscultation: normal bowel sounds General: Yes no CVA tenderness Back/Spine/Pelvis Back: no CVA tenderness Skin General skin exam: no rashes or lesions noted Neuro General: patient oriented x3 and moves all extremities Extrem General: Yes no pedal edema Results Reviewed Nephrology Results: BUN 13 mg/dL (9-16) 07/07/24 Creatinine 0.81 mg/dL (0.5-1.4) 07/07/24 Assessment & Plan Assessment & Plan (1) Proteinuria: Code(s): R80.9 - Proteinuria, unspecified Category: Medical Qualifiers: Proteinuria type: other Qualified Code(s): R80.8 - Other proteinuria (2) Microhematuria: Code(s): R31.29 - Other microscopic hematuria Category: Medical (3) HTN (hypertension): Code(s): I10 - Essential (primary) hypertension Category: Medical Qualifiers: Hypertension type: primary hypertension Qualified Code(s): I10 - Essential (primary) hypertension Plan Likely has IgA nephropathy Differential includes Alport's syndrome/thin membrane disease No sensori neural deafness. Needs cystoscopy CT Urogram ordered by Urology reviewed W/U ordered including 24 hour urine for protein On ACEI. BP at goal; Minimize NSAID's & keep good hydration No indication for renal biopsy now but depends on evolving data Suggested to take Fish oil capsules; Answered his/'s questions Orders: Orders Protein, 24 Hr Urine Group 5 Months R80.9 - Proteinuria, unspecified Creatinine 5 Months R80.9 - Proteinuria, unspecified Myeloperoxidase Antibody 5 Months R80.9 - Proteinuria, unspecified Proteinase 3 PR3 Antibodies 5 Months R80.9 - Proteinuria, unspecified Anti DNA DS Antibody 5 Months R80.9 - Proteinuria, unspecified Anti Glomerular Basement Memb 5 Months R80.9 - Proteinuria, unspecified Complement C3 5 Months R80.9 - Proteinuria, unspecified Phospholipase A2 Receptor Pnl 5 Months R80.9 - Proteinuria, unspecified Immunofixation, Random Urine 5 Months R80.9 - Proteinuria, unspecified UA and rflx microscopic 5 Months R80.9 - Proteinuria, unspecified Blood Urea Nitrogen 5 Months R80.9 - Proteinuria, unspecified Electrolytes 5 Months R80.9 - Proteinuria, unspecified Complement C4 5 Months R80.9 - Proteinuria, unspecified Immunofixation Pnl, Serum 5 Months R80.9 - Proteinuria, unspecified Coding Level of Care Code New Pt Level 4 (32630) Diagnoses Other proteinuria R80.8 Proteinuria type: other Microhematuria R31.29 Primary hypertension I10 Hypertension type: primary hypertension
[2024-07-27 14:14] VITALS: BP 110/62; PULSE 83; O2SAT 96; BMI 20.2
== END 2024-07-27 14:42 | disposition home or self-care (01) ==
LOC: HO.HKAS 13:54
PROVIDERS: PCP Nurse Practitioner Family; Referring Provider Nurse Practitioner Family; Visit Provider Internal Medicine Nephrology
DX: R80.8 Other proteinuria (principal); R31.29 Other microscopic hematuria; I10 Essential (primary) hypertension
CPT/HCPCS: 99204

== ENCOUNTER → 2024-07-27 13:53 | Outpatient (BNVA) | payer OTHER, SELFPAY | PROVIDERS: PCP Nurse Practitioner Family; Referring Provider Nurse Practitioner Family; Visit Provider Internal Medicine Nephrology ==

== ENCOUNTER 2024-09-19 13:46 | Outpatient (AMB) | payer OTHER, SELFPAY ==
[2024-09-19 14:05] VITALS: BP 120/70; PULSE 79; BMI 19.5
--- NOTE | 2024-09-19 14:05 | A.OFFVIS_ITS ---
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 He is a 63-year-old male with prior history of hypertension as well as PVCs in the past. Symptoms of pretty well controlled on current medical therapy including his blood pressure. However over the last month he has been noticing increasing symptoms of palpitation mostly in the evening time after he comes back from work and bothersome on night. He says symptoms dissipate after he takes his morning metoprolol. He was actually having symptoms of palpitation while he was in the office although EKGs in his clinical exam is not suggestive of any extra systoles. Denies any increased stress or change in his lifestyle or his personal situation. His TSH in April was within normal limits. He said his blood pressure is generally well controlled. He takes all his medications. He said he is very active and denies any symptoms exertional chest pain or shortness of breath. He is also coming for preoperative cardiovascular exam prior to colonoscopy. [facility] Medical History History of DVT (deep vein thrombosis) Tubular adenoma of colon Herniated disc Erythrocytosis Superficial thrombophlebitis of leg PVCs (premature ventricular contractions) Proteinuria Rosacea Erectile dysfunction Dyslipidemia PVD (peripheral vascular disease) Bigeminy HTN (hypertension) Tachycardia Surgical History History of colonoscopy History of back surgery History of appendectomy Family History Father No problems noted. Mother No problems noted. Sister No problems noted. Sister No problems noted. Son No problems noted. Brother No problems noted. Brother No problems noted. Brother No problems noted. Brother No problems noted. Social History Household Members: Spouse Housing: Apartment Are you a primary career education teacher to a significant other at home: No Do you presently have visiting nurse or other home services: No Alcohol intake: current Alcohol intake frequency: 0-2 drinks per day Alcohol type: beer Patient Tobacco Use Status: Current everyday Tobacco user Tobacco use type: Cigarette Cigarette Packs Per Day: 0.5 Years Smoked: (onset 17yo, 1/2ppd x 44yrs, 22pyh) e-Cigarette/Vaping Use: Never Used Second Hand Smoke Exposure: Yes Advance Directives Date on File: 07/09/20 service: No Current occupational status: employed Cognitive needs: No Hearing needs: No Vision needs: No Review of Systems Const Denies chills, Denies daytime sleepiness, Denies fatigue, Denies fever(s), Denies frequent falls, Denies poor appetite, Denies snoring, Denies stops breathing during sleep, Denies weakness, Denies weight gain and Denies weight loss Eyes Denies loss of vision ENT Denies dizziness and Denies hearing loss Card Denies chest pain, Denies claudication, Denies leg edema, Denies lightheadedness, Denies palpitations, Denies dyspnea, Denies dyspnea on exertion and Denies orthopnea Resp Denies cough, Denies excessive phlegm production, Denies dyspnea, Denies dyspnea on exertion, Denies snoring and Denies wheezing GI Denies abdominal pain, Denies hematochezia, Denies change in bowel habits, Denies nausea and Denies vomiting Denies dysuria and Denies urinary frequency Musc Denies arthralgias, Denies muscle weakness, Denies numbness and Denies other (frequent falls) Skin/Breast Denies nail changes and Denies rash Neuro Denies Abnormal speech present, Denies dizziness, Denies frequent falls, Denies loss of vision, Denies memory loss, Denies numbness and Denies weakness Psych Denies depression and Denies memory loss Endo Denies fatigue and Denies palpitations Rad/Lymph Reports easy bruising and Reports other (anemia) Aller/Immun Denies wheezing Physical Exam Vital Signs: Last Vital Signs Pulse 79 09/19/24 14:05 BP 120/70 09/19/24 14:05 BMI result Body Mass Index 19.5 Const General: cooperative, comfortable, no acute distress, alert, awake, Physically active and anxious Nutritional Appearance: thin Orientation/consciousness: patient oriented x3 Limitations: no limitations HEENT Head: Yes normocephalic and Yes atraumatic Neck Neck: Yes trachea midline, Yes supple and Yes no JVD Resp Effort & Inspection: normal respiratory effort Auscultation: wheezes (Right posterior base) and diminished lung sounds Cardio Jugular venous distension: no JVD Palpation: normal PMI Rate: regular rate Rhythm: regular rhythm Heart sounds: S1 normal heart sound present, S2 normal heart sound present, no click, no gallops, no murmurs and no rubs GI Auscultation: normal bowel sounds Skin General skin exam: no rashes or lesions noted Neuro General: patient oriented x3 and no focal motor deficits Speech: No Abnormal speech present Extrem General: Yes no clubbing, cyanosis or edema Psych Appearance: grossly normal Office Procedures EKG Details: EKG shows normal sinus rhythm with rightward axis with septal QS pattern otherwise nonspecific ST-T changes [id number], Complete Assessment & Plan Assessment & Plan (1) Palpitations: Code(s): R00.2 - Palpitations Category: Medical Plan: Symptoms of palpitation which have increase in frequency or and having symptoms of palpitation with now although there was no clear arrhythmias noted. It is possible that his PVCs have come back. We discussed about pursuing this with diagnose will suggest him to have a 7 day Holter monitor to assess for her symptoms. Also update an echocardiogram to evaluate for cardiac structure and function which will be done in near future. Avoidance of stimulants was discussed. Stress mitigation strategies discussed. Will avoid change in pharmacotherapy unless we have further diagnose at this point time. (2) Preoperative cardiovascular examination: Code(s): Z01.810 - Encounter for preprocedural cardiovascular examination Plan: Preoperative cardiovascular exam to undergo colonoscopy. This confirmed low risk procedure. He has excellent functional capacity. At this point time he is optimized to undergo the procedure with low risk for perioperative cardiovascular morbidity mortality. Continue all antihypertensive medications in the perioperative time. Will follow up in the clinic in 2 months time, sooner p.r.n.. Thank you for allowing me to partake in his care Orders: Orders CA echo transthoracic complete Today R00.2 - Palpitations ECG 7 day holter monitor Today R00.2 - Palpitations Coding Level of Care Code New Pt Level 4 (89552) Complex EM visit Add On G2211 Diagnoses Palpitations R00.2 Preoperative cardiovascular examination Z01.810 CPT Codes EKG - CPT: 76287-[id number], Complete ([id number])
== END 2024-09-19 15:13 | disposition home or self-care (01) ==
LOC: HO.HCS 13:47
PROVIDERS: PCP Nurse Practitioner Family; Visit Provider Internal Medicine Cardiovascular Disease
DX: R00.2 Palpitations (principal); Z01.810 Encounter for preprocedural cardiovascular examination
CPT/HCPCS: 93010; 99204; G2211

== ENCOUNTER → 2024-09-19 13:46 | Outpatient (BNVA) | payer OTHER, SELFPAY | PROVIDERS: PCP Nurse Practitioner Family; Visit Provider Internal Medicine Cardiovascular Disease | DX: R00.2 Palpitations (principal) | CPT/HCPCS: 93005 ==

== ENCOUNTER 2024-09-25 13:32 | Outpatient (AMB) | payer OTHER, SELFPAY ==
--- NOTE | 2024-09-25 13:36 | MHC.OFFVIS ---
Intake Visit Reasons: 3m/ Bun & Creat(set) Intake Note: Patient is present for 3M/BUN & CREAT Urology Medication:TADALAFIL Antibiotic Allergy:NONE Blood Thinner:NONE TODAY'S PVR:0ML'S Digital Marketing Analyst Required: No Allergies codeine (CODEINE) Allergy (Unknown, Verified 09/25/24 14:12) HIVES Medication List - Last Reconciled 09/25/24 by SUZIE OliveraP- amlodipine 10 mg PO DAILY lisinopril 40 mg PO DAILY metoprolol succinate ER 100 mg PO DAILY tadalafil 10 mg PO DAILY PRN HPI Comments Details: Michel is a very pleasant 63-year-old male patient of Dr. Olivo. He has a past medical history of DVT, herniated disc, PVCs, proteinuria, rosacea, ED, dyslipidemia, peripheral vascular disease, bigeminy, hypertension, and tachycardia. He presents to the office today for follow-up of his enlarged prostate and microscopic hematuria. During last office visit microscopic hematuria was noted and the patient reported a 10 year history of nicotine dependence. He reports smoking approximately half a pack of cigarettes per day at which time a CT urogram was ordered for further assessment evaluation in the patient's urine was sent for urine cytology. These results were reviewed and communicated with the patient today. CT 07/30 notes no acute obstructive uropathy or urolithiasis. No suspicious renal cortical lesions. Prostatomegaly with urinary bladder base invasion results in diffuse urinary bladder wall thickening. No obstructive or acute inflammatory changes in the GI tract. Urine cytology 06/30 Negative for high-grade urothelial carcinoma. He currently denies any bothersome urinary issues or concerns. He denies urinary urgency, urinary frequency, incontinence, nocturia, hematuria, dysuria, foul smelling urine, changes to urinary stream, flank pain, fever, and or chills. He is happy with her current voiding parameters. We discussed at length enlarged prostate, bladder wall thickening, as well as microscopic hematuria. We discussed further treatment options and risks and benefits of these treatment options. I discussed reasons for blood in the urine may include but are not limited to kidney stones, cancer in the urinary tract, BPH, kidney stone disease or inflammatory conditions of the urinary tract. I have discussed workup to include cystoscopy evaluation. In review of patient's chart it appears PSA 05/02 1.9. He otherwise offers no other issues or concerns at this time. FORMERLY [facility], [facility] Medical History History of DVT (deep vein thrombosis) Tubular adenoma of colon Herniated disc Erythrocytosis Superficial thrombophlebitis of leg PVCs (premature ventricular contractions) Proteinuria Rosacea Erectile dysfunction Dyslipidemia PVD (peripheral vascular disease) Bigeminy HTN (hypertension) Tachycardia Surgical History History of colonoscopy History of back surgery History of appendectomy Family History Father No problems noted. Mother No problems noted. Sister No problems noted. Sister No problems noted. Son No problems noted. Brother No problems noted. Brother No problems noted. Brother No problems noted. Brother No problems noted. Social History Household Members: Spouse Housing: Apartment Are you a primary memory care program director to a significant other at home: No Do you presently have visiting nurse or other home services: No Alcohol intake: current Alcohol intake frequency: 0-2 drinks per day Alcohol type: beer Patient Tobacco Use Status: Current everyday Tobacco user Tobacco use type: Cigarette Cigarette Packs Per Day: 0.5 Years Smoked: (onset 17yo, 1/2ppd x 44yrs, 22pyh) e-Cigarette/Vaping Use: Never Used Second Hand Smoke Exposure: Yes Advance Directives Date on File: 07/09/20 service: No Current occupational status: employed Cognitive needs: No Hearing needs: No Vision needs: No Review of Systems Eyes Reports no additional complaints ENT Reports no additional complaints Card Reports as per HPI GI Reports no additional complaints Reports as per HPI Musc Reports as per HPI Neuro Reports as per HPI Psych Reports no additional complaints Endo Reports no additional complaints Rad/Lymph Reports as per HPI Aller/Immun Reports as per HPI Physical Exam Const General: cooperative, comfortable, no acute distress, well developed, alert and awake Orientation/consciousness: patient oriented x3 Limitations: no limitations HEENT Head: Yes normal to inspection, Yes normocephalic and Yes atraumatic Ears: hearing grossly normal bilaterally Eyes General: appearance normal, both eyes and all related structures Neck Neck: Yes normal visual inspection and Yes trachea midline Chest Chest palpation & inspection: normal inspection of the chest Resp Effort & Inspection: normal respiratory effort and able to speak in complete sentences Cardio Rate: regular rate GI Inspection: Yes normal to inspection General: Yes no CVA tenderness Back/Spine/Pelvis Back: no CVA tenderness Skin General skin exam: no rashes or lesions noted Neuro General: patient oriented x3 Extrem General: Yes normal to inspection Psych Appearance: grossly normal and well kempt Mental Status: mental status grossly normal Speech and movement: Normal speech and movement present and Clear speech present Affect: normal affect Attitude: cooperative Thought process: Normal thought process present Thought content: Normal thought content present Insight: Fair insight present (Psych) Judgement: Fair judgement present (Psych) Office Procedures Post Void Residual Post Residual Void Post Void Residual (PVR): 0 [id number] Void Residual by ultrasound Results AMB Urinalysis, Automated UA Leukoctes 0 Anjelica/uL Last Edit by CAMMIE Ibrahim on 09/25/24 13:53 UA Nitrite Negative Last Edit by Vidal Hoff CCM on 09/25/24 13:53 UA Urobilinogen 0.2 mg/dL Last Edit by Vidal Hoff CCM on 09/25/24 13:53 UA Protein 100 mg/dL Last Edit by Vidal Hoff CCM on 09/25/24 13:53 UA pH 6.0 Last Edit by Vidal Hoff CCM on 09/25/24 13:53 UA Blood 200 Sarmad/uL Last Edit by Vidal Hoff CCM on 09/25/24 13:53 UA Specific [place] 1.020 Last Edit by Vidal Hoff CCM on 09/25/24 13:53 UA Ketone Negative Last Edit by Vidal Hoff CCM on 09/25/24 13:53 UA Bilirubin 0 mg/dL Last Edit by Vidal Hoff CCM on 09/25/24 13:53 UA Glucose 0 mg/dL Last Edit by Vidal Hoff [facility] on 09/25/24 13:53 Results Reviewed Results Reviewed: Laboratory Last Values Urine pH (Auto) 6.0 09/25/24 13:52 Specific [place] (Auto) 1.020 09/25/24 13:52 Urine Protein (Auto) 100 mg/dL 09/25/24 13:52 Glucose (UA)(Auto) 0 mg/dL 09/25/24 13:52 Urine Ketones (Auto) Negative 09/25/24 13:52 Urine Blood (Auto) 200 Sarmad/uL 09/25/24 13:52 Urine Nitrite (Auto) Negative 09/25/24 13:52 Urine Bilirubin (Auto) 0 mg/dL 09/25/24 13:52 Urine Urobilinogen (Auto) 0.2 mg/dL 09/25/24 13:52 Leukocyte Esterase (Auto) 0 Anjelica/uL 09/25/24 13:52 Date of Service: 07/11/24 Procedure(s): CT urogram Findings: No basilar consolidation or pleural effusion. Bilateral renal excretion with no hydronephrosis or urolithiasis. Normal renal cortical enhancement. Tiny renal cortical hypodensities bilaterally are too small to accurately characterize. Statistically, there are most likely cysts. No enhancing solid renal cortical lesion. Mild hepatic steatosis. Mild hepatosplenomegaly. The right hepatic lobe measures 17.5 cm. The spleen measures 13.2 cm. There are tiny hypodensities in the liver that are too small to accurately characterize. Gallbladder, pancreas and right adrenal gland are unremarkable. There is a 1.4 cm fat density left adrenal nodule consistent with a benign adenoma. Atherosclerotic changes in the aorta. No AAA. No lymphadenopathy. No bowel obstruction, pneumoperitoneum, or pneumatosis. No ascites. No significant mesenteric or paracolic edema. Mild sigmoid diverticulosis. The appendix is not seen. The prostate is heterogeneous measuring 4.4 x 3.9 x 4.8 cm. There is urinary bladder base invasion best visualized on sagittal image 51, series 7. Mild diffuse urinary bladder wall thickening. Multiple pelvic phleboliths. No destructive osseous lesion. Obliteration of the L5-S1 disc space with bridging osteophytes. IMPRESSION: 1. No acute obstructive uropathy or urolithiasis. 2. No suspicious renal cortical lesion. 3. Prostatomegaly with urinary bladder base invasion results in diffuse urinary bladder wall thickening. 4. No obstructive or acute inflammatory changes in the gastrointestinal tract. Assessment & Plan Assessment & Plan (1) Microhematuria: Code(s): R31.29 - Other microscopic hematuria Category: Medical (2) Bladder wall thickening: Code(s): N32.89 - Other specified disorders of bladder Category: Medical (3) Proteinuria: Code(s): R80.9 - Proteinuria, unspecified Category: Medical Qualifiers: Proteinuria type: other Qualified Code(s): R80.8 - Other proteinuria (4) Enlarged prostate: Code(s): N40.0 - Benign prostatic hyperplasia without lower urinary tract symptoms Category: Medical Plan In office urinalysis results reviewed with the patient today; as noted above; will send for urine cytology. PVR [address] urogram results reviewed with the patient today; as noted above. Previous urine cytology results reviewed with the patient today; as noted above. We did discussed potential causes and treatment options for bladder wall thickening, enlarged prostate, and microscopic hematuria; risks and benefits of these interventions were discussed. All questions were answered He currently denies any bothersome urinary issues or concerns. Reports be happy with current voiding Discussed and educated on the importance of limiting/quitting nicotine dependence for overall health and well-being Continue follow-up with Nephrology for proteinuria Follow-up next available in office cystoscopy; or sooner with any issues, concerns, and or questions. Orders: Orders AMB Urinalysis Automated Today Z13.9 - Encounter for screening, unspecified Urine Cytology Today R31.29 - Other microscopic hematuria Patient Instructions: The patient had an opportunity to ask questions regarding the treatment plan. All questions were answered. Physical exam, labs, and imaging were discussed and reviewed in detail. As well as risks, benefits, and discussion of treatment choices. No major barriers to understanding were identified. The patient expressed understanding and agreement with the above treatment plan. The patient was made aware they should contact our office by phone for worsening of their current condition, the appearance of new symptoms, or with any questions or concerns. Compliance is encouraged with any medications and follow up testing that is ordered. It is a privilege to be allowed the opportunity to participate in? your urological care.? Again, if you have any questions or concerns If you have any questions or concerns please do not hesitate to contact me. The office is [phone]. This note is constructed using voice recognition software. While every effort has been made to ensure accuracy cloth shrinking tester errors may have been included. Yours sincerely, KELTON Olivera Coding Level of Care Code Est Pt Level 3 (59679) Complex EM visit Add On G2211 Diagnoses Microhematuria R31.29 Bladder wall thickening N32.89 Other proteinuria R80.8 Proteinuria type: other Enlarged prostate N40.0 CPT Codes Post Residual Void - PVR CPT Code: 30203-[id number] Void Residual by ultrasound ([id number])
== END 2024-09-25 14:14 | disposition home or self-care (01) ==
LOC: HO.HUSH 13:33
PROVIDERS: PCP Nurse Practitioner Family; Visit Provider Nurse Practitioner Family
DX: R31.29 Other microscopic hematuria (principal); N32.89 Other specified disorders of bladder; R80.8 Other proteinuria; N40.0 Benign prostatic hyperplasia without lower urinary tract symptoms; Z13.9 Encounter for screening, unspecified
CPT/HCPCS: 99213; G2211

== ENCOUNTER 2024-09-25 13:32 | Outpatient (REF) | payer OTHER, SELFPAY | END 2024-09-25 13:33 | disposition home or self-care (01) | LOC: HO.LAB 13:32 | PROVIDERS: PCP Nurse Practitioner Family; Visit Provider Nurse Practitioner Family | DX: R31.29 Other microscopic hematuria (principal); Z13.9 Encounter for screening, unspecified | CPT/HCPCS: 51798; 81003; 88112 ==

== ENCOUNTER 2024-10-17 13:53 | Outpatient (REF) | payer OTHER, SELFPAY | END 2024-10-17 13:54 | disposition home or self-care (01) | LOC: HO.BBR 13:53 | PROVIDERS: PCP Nurse Practitioner Family; Visit Provider Internal Medicine Medical Oncology | DX: D75.1 Secondary polycythemia (principal) | CPT/HCPCS: 85018; 99195 ==

== ENCOUNTER 2024-11-15 11:19 | Outpatient (AMB) | payer OTHER, SELFPAY ==
[2024-11-15 11:24] VITALS: BP 126/64; PULSE 84; O2SAT 96; BMI 20.1
--- NOTE | 2024-11-15 11:24 | MHC.PC.OV ---
Vital Signs 11/15/24 11:24 Height 5 ft 9 in Weight 136 lb BMI 20.1 BP 126/64 Blood Pressure Location Lt brachial Position Sitting Pulse 84 Pulse Source Pulse Oximeter Pulse Oximetry (%) 96 Intake Visit Reasons: f/up Allergies codeine (CODEINE) Allergy (Unknown, Verified 11/15/24 11:25) HIVES Tobacco use date assessed: 05/01/24 Fall risk assessment: No Falls in past year Last assessed Fall Risk: 11/15/24 Dental Screening Dental Screen Date: 05/01/24 HPI f/up HPI Details Chief Complaint The patient reports discomfort in the right antecubital region. History of Present Illness The patient is a 64-year-old male presenting with right antecubital region discomfort. The discomfort is located in the ventral elbow region on the right side and has been associated with lifting and moving his , suggesting a possible strain or muscle tear. There is no active swelling, redness, or warmth, and the patient is able to flex and extend the elbow without difficulty, although tenderness is present. The tenderness extends to the biceps region, with a possible tendon tear or strain being considered. Tenderness is also noted with pronation and supination of the right forearm, but the radial pulse remains positive. Social History - Family Status: The patient is actively involved in caregiving for his , which involves significant physical activity such as lifting and moving her. Health Maintenance Review of Systems - Musculoskeletal: Reports tenderness in the right antecubital and biceps region. Denies swelling, redness, or warmth. Physical Exam General: Cooperative, healthy appearing, comfortable, no acute distress and well developed Orientation: Patient oriented x3 Limitations: No limitations Head: Normal to inspection Ears: Hearing grossly normal bilaterally Nose: Normal external nose present Face and sinus: Normal facial exam Eyes: Appearance normal, both eyes and all related structures Neck: Normal visual inspection and Yes full ROM Respiratory: Normal respiratory effort and able to speak in complete sentences. dim bilat Cardiovascular: Regular rate and rhythm. Normal S1 and S2 GI: Normal to inspection. Soft to palpation and nontender Skin: No rashes or lesions noted Neuro: Patient oriented x3 Extremities: Tenderness in the right antecubital region and distal biceps, with tenderness on pronation and supination. No active swelling, redness, or warmth. Able to flex and extend the right elbow without difficulty. Positive radial pulse. Results Plan 1. Right Antecubital Region Discomfort The patient is experiencing discomfort in the right antecubital region, likely due to a strain or small muscle tear from lifting activities. Management includes prescribing meloxicam for pain relief and advising rest to prevent further strain. 2. Possible Strain Or Muscle Tear In The Right Biceps Region The patient presents with tenderness in the right biceps region, suggesting a possible tendon tear or strain. Treatment involves the use of meloxicam and monitoring for any changes in symptoms. Discussion Notes I discussed with the patient the likelihood of a muscle strain or small tear in the right antecubital and biceps region due to physical activity. We reviewed the use of meloxicam for pain management and the importance of rest to prevent further injury. Patient Instructions - Take meloxicam as prescribed for pain relief. - Rest the affected arm and avoid heavy lifting to prevent further strain. FORMERLY [facility], LATER [facility] Medical History History of DVT (deep vein thrombosis) Tubular adenoma of colon Herniated disc Erythrocytosis Superficial thrombophlebitis of leg PVCs (premature ventricular contractions) Proteinuria Rosacea Erectile dysfunction Dyslipidemia PVD (peripheral vascular disease) Bigeminy HTN (hypertension) Tachycardia Surgical History History of colonoscopy History of back surgery History of appendectomy Family History Father No problems noted. Mother No problems noted. Sister No problems noted. Sister No problems noted. Son No problems noted. Brother No problems noted. Brother No problems noted. Brother No problems noted. Brother No problems noted. Social History Household Members: Spouse Housing: Apartment Are you a primary day care supervisor to a significant other at home: No Do you presently have visiting nurse or other home services: No Alcohol intake: current Alcohol intake frequency: 0-2 drinks per day Alcohol type: beer Patient Tobacco Use Status: Current everyday Tobacco user Tobacco use type: Cigarette Cigarette Packs Per Day: 0.5 Years Smoked: (onset 17yo, 1/2ppd x 44yrs, 22pyh) e-Cigarette/Vaping Use: Never Used Second Hand Smoke Exposure: Yes Advance Directives Date on File: 07/09/20 service: No Current occupational status: employed Cognitive needs: No Hearing needs: No Vision needs: No Questionnaire PHQ-9 Over the last 2 weeks, how often have you been bothered by any of the following problems? 1. Little interest or pleasure in doing things: not at all 2. Feeling down, depressed, or hopeless: not at all 3. Trouble falling or staying asleep, or sleeping too much: nearly every day 4. Feeling tired or having little energy: not at all 5. Poor appetite or overeating: not at all 6. Feeling bad about yourself - or that you are a failure or have let yourself or your family down: not at all 7. Trouble concentrating on things, such as reading the newspaper or watching television: not at all 8. Moving or speaking so slowly that other people could have noticed. Or the opposite - being so fidgety or restless that you have been moving around a lot more than usual: not at all 9. Thoughts that you would be better off or of hurting yourself in some way: not at all Total score: 3 Depression Screening Interpretation: Negative Depression Screening Done: Yes Source: Developed by Drs. Zack Steward, Marlen Cabral, Chintan Cisneros and colleagues, with an educational maria luz from [employer]. Thrive Questionnaire Date Thrive assessed: 05/01/24 I am a: Patient What is your living situation today?: I have a steady place to live Within the past 12 months, did the food you bought not last and you didn't have the money to get more?: I choose not to answer this question Within the past 12 months, did you worry whether your food would run out before you got money to buy more?: I choose not to answer this question Do you have trouble paying for medicines?: No Do you have trouble getting transportation to medical appointments?: No Do you have trouble paying your heating and electricity bill?: Yes Do you have trouble taking care of your child, family member or friend?: No Do you have trouble with day-to-day activities such as bathing, preparing meals, shopping, managing finances, etc.?: No Are you currently unemployed and looking for a job?: No Are you interested in more education?: No Please select the resources that you would like help with: None Currently or been in a relationship where the following occur: I choose not to answer THRIVE Score: 1 AUDIT C Alcohol Use Questionnaire (AUDIT-C) 1. How often do you have a drink containing alcohol?: 2-4 times a month 2. How many drinks containing alcohol do you have on a typical day when you are drinking?: 3 or 4 3. How often do you have six or more drinks on one occasion?: Monthly Total Score: 5 Score Reviewed/Action Taken: Yes ALEX-7 AMB Questionnaire ALEX-7 Date ALEX - 7 assessed: 05/01/24 Feeling nervous, anxious, or on edge: 0 = Not at all Not being able to stop or control worryin = Not at all Worrying too much about different things: 0 = Not at all Trouble relaxin = Not at all Being so restless that it is hard to sit still: 0 = Not at all Becoming easily annoyed or irritable: 0 = Not at all Feeling afraid as if something awful might happen: 0 = Not at all Total ALEX-7 score (0-4 normal; 5-9 mild; 10-14 moderate; 15-21 severe): 0 Source: Developed by Drs. Zack Steward, Marlen Cabral, Chintan Cisneros and colleagues, with an educational maria luz from [employer]. Physical exam (Primary Care) Vital Signs: Last Vital Signs Pulse 84 11/15/24 11:24 BP 126/64 11/15/24 11:24 Pulse Ox 96 11/15/24 11:24 BMI result Body Mass Index 20.1 Tobacco/Smoking Status: Tobacco use Status Tobacco use date assessed 05/01/24 11/15/24 11:25 Patient Tobacco Use Status Current everyday Tobacco 11/15/24 11:25 Tobacco use type Cigarette 11/15/24 11:25 e-Cigarette/Vaping Use Never Used 11/15/24 11:25 PHQ-9: PHQ-9 Score PHQ-9: Total score 3 11/15/24 11:29 Depression Screening Interpretation: Negative Thrive Assessment: Date of Thrive Assessment Date Thrive assessed 05/01/24 11/15/24 11:25 Currently or been in a relationship where the following occur: I choose not to answer Coding Level of Care Code Est Pt Level 3 (74296) Diagnoses Elbow pain M25.529 Assessment & Plan Assessment & Plan (1) Elbow pain: Comment: antecubital region (right), ventral elbow Code(s): M25.529 - Pain in unspecified elbow Category: Medical Plan . Orders: Orders CT lung screening Today M25.529 - Pain in unspecified elbow US venous duplex UE RT Today M25.529 - Pain in unspecified elbow Medications: New meloxicam 7.5 mg PO DAILY 14 tabs 0RF 14 days
== END 2024-11-15 16:00 | disposition home or self-care (01) ==
LOC: HO.HMCC 11:20
PROVIDERS: PCP Nurse Practitioner Family; Visit Provider Nurse Practitioner Family
DX: M25.529 Pain in unspecified elbow (principal)

== ENCOUNTER 2024-12-05 14:09 | Outpatient (REF) | payer OTHER, SELFPAY ==
--- NOTE | ~2024-12-05 | US_ITS ---
EXAMINATION: US TRIPLEX UPPER EXTREMITY, RIGHT CLINICAL INFORMATION: Pain, right upper extremity. COMPARISON: None available. TECHNIQUE: Color-flow triplex imaging with spectral analysis and compression Doppler was performed on the right upper extremity. FINDINGS: The right internal jugular, subclavian, and axillary veins are patent with normal spectral Doppler waveforms. The imaged segment of the right brachiocephalic vein is patent. Spectral doppler waveforms are normal. The brachial, basilic, cephalic, radial, and ulnar veins are patent and compressible. US/US venous duplex UE RT IMPRESSION: No acute deep venous thrombosis interrogated veins, right upper extremity. Negative for DVT. Electronically signed by: Perry Cazares MD 12/05/2024 03:03 PM EDT
== END 2024-12-05 14:10 | disposition home or self-care (01) ==
LOC: HO.US 14:09
PROVIDERS: PCP Nurse Practitioner Family; Visit Provider Nurse Practitioner Family
DX: M79.601 Pain in right arm (principal); M25.521 Pain in right elbow
CPT/HCPCS: 93971

== ENCOUNTER → 2024-12-05 14:11 | Outpatient (BNV) | payer OTHER, SELFPAY | PROVIDERS: PCP Nurse Practitioner Family; Visit Provider Radiology Diagnostic Radiology | DX: M79.621 Pain in right upper arm (principal) | CPT/HCPCS: 93971 ==

== ENCOUNTER → 2024-12-12 13:40 | Outpatient (REF) | payer OTHER, SELFPAY ==
--- NOTE | 2024-12-12 13:42 | CA_ITS ---
Transthoracic Echocardiogram Patient (Last, First, Middle): Michel Martinez, Gender: M Date of : 1960 Age: 64 Procedure Date: 12/12/2024 Procedure Type: Transthoracic Echocardiogram Location: OP Height: 175.26 cm Weight: 61.69 kg BSA: 1.75 m2 Heart Rate: bpm BP: 126 / 64 mmHg Site Specialist: LUDMILA Referring MD: Regan Gabriel MD Brass Plater: Regan Gabriel MD Symptoms: R00.2 - Palpitations Study Quality: Adequate ECG Rhythm: Sinus Conclusions: - 1. Normal LV ejection fraction 55-60% with grade 1 diastolic dysfunction which may be normal for his age 2. Normal cardiac valvular Dopplers 3. Normal RV systolic pressure 4. No gross pericardial effusion Findings Left Ventricle Normal left ventricular size, thickness, and systolic function. The visually estimated ejection fraction is between 55-60%. Spectral Doppler is indicative of an impaired relaxation filling pattern. E/E prime ratio is <8, consistent with normal filling pressures. Evidence suggests grade I (mild) diastolic dysfunction. Right Ventricle Normal right ventricular cavity size and systolic function. Atria Both atria are normal in size. Interatrial shunt cannot be excluded. Aortic Valve The aortic valve structure and function is likely normal. There is no aortic valve stenosis. There is no aortic valve regurgitation. Mitral Valve Likely normal mitral valve structure and function. There is trace mitral valve regurgitation. There is no mitral valve stenosis. Pulmonic Valve The pulmonic valve was not well visualized. Tricuspid Valve Likely normal tricuspid valve structure and function. There is trace tricuspid valve regurgitation. The right ventricular systolic pressure is normal. The right ventricular systolic pressure is 21 mmHg. Normal right atrial pressure. There is no evidence of pulmonary hypertension. Great Vessels All visible segments of the aorta are normal in size. The pulmonary artery was not well visualized. There is no dilatation of the ascending aorta measuring 3.10 cm. Venous The inferior vena cava is normal in size and collapses greater than 50% with inspiration. Pericardium/Pleural There is no evidence of pericardial effusion. Prior Study Comparison No significant change compared to prior study dated: 02/17/2018. Measurements 2D Linear Measurements IVSd: 0.85 0.6-0.9/0.6-1.0 cm LVIDd: 4.70 3.9-5.3/4.2-5.9 cm LVIDd Index: 2.69 2.4-3.2/2.2-3.1 cm/m2 LVIDs: 3.46 2.0-3.6 cm LVPWd: 0.81 0.7-1.1 cm LA Diam: 3.10 2.7-3.8/3.0-4.0 cm LAIDs Index: 1.77 1.5-2.3 cm/m2 LV Mass: 158.31 67-162/88-224 g LV Mass Index: 90.47 43-95/49-115 g/m2 LVOT Diam: 2.10 3.0+(-)1.3 cm 2D Systolic Function EF 4C: 57.40 >55% EF 2C: 57.80 >55% EF BiP: 58.70 >55% Mitral Valve MV Pk E: 0.73 MV PK A: 0.85 MV Decel Time: 244.00 E/A: 0.90 E'Lateral: 9.46 E'Medial: 6.53 E/E' Med: 11.20 E/E' Lat: 7.70 PHT: 71.00 MVA PHT: 3.10 Decel Gila: 3.01 Aortic Valve AoV Pk Dain: 1.26 AoV Mn Dain: 0.95 AoV VTI: 0.31 AoV Pk Grad: 6.00 Aov Mn Grad: 4.00 CORTNEY Cont.VTI: 2.43 LVOT LVOT Pk Dain: 0.94 LVOT Mn Dain: 0.67 LVOT VTI: 0.22 LVOT Pk Grad: 4.00 LVOT Mn Grad: 2.00 LVOT Diam: 2.10 LVOT Area: 3.46 Diastolic Function MV Pk E: 0.73 MV Pk A: 0.85 E/A: 0.90 E'Medial: 6.53 E/E' Med: 11.20 E' Laterial: 9.46 E/E' Lat: 7.70 Right Ventricle TAPSE (mm): 24.80 TVS' Dain: 13.40 Tricuspid Valve TR Pk Dain: 2.14 TR Pk Grad: 18.00 RA Press: 3.00 RVSP: 21.00 Great Vessels Aorta Sinus of Valsalva: 3.87 2.0-3.[address] Ridge: 2.91 1.7-3.4 cm Ao Asc: 3.10 2.1-3.4 cm Pulmonary Veins Pulm Vein S/D 1.10 Updated in Other Vendor System with Status of Final Regan Gabriel MD electronically signed on 12/13/2024 2:06:35 PM with status of Final
== END ==
LOC: HO.CARD 13:40
PROVIDERS: PCP Nurse Practitioner Family; Visit Provider Internal Medicine Cardiovascular Disease
DX: R00.2 Palpitations (principal)
CPT/HCPCS: 93242; 93306

== ENCOUNTER → 2024-12-12 13:42 | Outpatient (BNV) | payer OTHER, SELFPAY | PROVIDERS: PCP Nurse Practitioner Family; Visit Provider Internal Medicine Cardiovascular Disease | DX: I51.89 Other ill-defined heart diseases (principal); R00.2 Palpitations | CPT/HCPCS: 93306 ==

== ENCOUNTER 2025-01-01 13:41 | Outpatient (AMB) | payer OTHER, SELFPAY ==
--- NOTE | 2025-01-01 13:43 | A.OFFVIS_ITS ---
Vital Signs 01/01/25 13:44 Height 5 ft 9 in Weight 137 lb 9.095 oz BMI 20.3 BP 118/62 Blood Pressure Location Lt brachial Position Sitting Pulse 88 Pulse Source Pulse Oximeter Intake Visit Reasons: f/u after testing Wholesale Representative Required: No Allergies codeine (CODEINE) Allergy (Unknown, Verified 01/01/25 13:45) HIVES Medication List - Last Reconciled 01/02/25 by Stephanie Cole, HY[employer]OELECT[employer]IC MECH[employer]IC-C amlodipine 10 mg PO DAILY lisinopril 40 mg PO DAILY metoprolol succinate ER 100 mg PO DAILY tadalafil 10 mg PO DAILY PRN HPI HPI f/u after testing: Details: Michel is a 64-year-old male with past medical history of hypertension, smoking, heart palpitations who recently underwent an echocardiogram and Holter monitor and now presents for follow-up. Today he reports that he is noticing heart palpitations in the afternoon. He says he is feeling it at the time of this visit. When listening to his heart I hear no irregular or rapid beating. He says it is beating harder than usual. No other concerning symptoms recently. No chest discomfort, new shortness of breath, lightheadedness, leg edema. He drinks 1 caffeinated beverage in the morning and at lunchtime will usually have a caffeinated soda. He is taking his meds as directed. He reports good activity tolerance. FORMERLY [facility], [facility] Medical History Nicotine dependence, cigarettes, uncomplicated History of DVT (deep vein thrombosis) Tubular adenoma of colon Herniated disc Erythrocytosis Superficial thrombophlebitis of leg PVCs (premature ventricular contractions) Proteinuria Rosacea Erectile dysfunction Dyslipidemia PVD (peripheral vascular disease) Bigeminy HTN (hypertension) Tachycardia Surgical History History of colonoscopy History of back surgery History of appendectomy Family History Father No problems noted. Mother No problems noted. Sister No problems noted. Sister No problems noted. Son No problems noted. Brother No problems noted. Brother No problems noted. Brother No problems noted. Brother No problems noted. Social History Household Members: Spouse Housing: Apartment Are you a primary care worker to a significant other at home: No Do you presently have visiting nurse or other home services: No Alcohol intake: current Alcohol intake frequency: 0-2 drinks per day Alcohol type: beer Patient Tobacco Use Status: Current everyday Tobacco user Tobacco use type: Cigarette Cigarette Packs Per Day: 0.5 Years Smoked: (onset 17yo, 1/2ppd x 44yrs, 22pyh) e-Cigarette/Vaping Use: Never Used Second Hand Smoke Exposure: Yes Advance Directives Date on File: 07/09/20 service: No Current occupational status: employed Cognitive needs: No Hearing needs: No Vision needs: No Review of Systems Const All systems reviewed & are unremarkable except as noted in HPI and below ENT Denies dizziness Card Details: Pounding heart Denies chest pain, Denies chest pain at rest, Denies chest pain with activity, Denies rapid heart rate, Denies pedal edema, Denies edema, Denies leg edema, Denies lightheadedness, Denies palpitations, Denies dyspnea, Denies dyspnea on exertion and Denies orthopnea Resp Denies cough, Denies dyspnea and Denies dyspnea on exertion GI Denies hematochezia and Denies change in stool character Musc Denies abnormal gait, Denies limited range of motion, Denies muscle cramps, Denies muscle weakness, Denies numbness, Denies radiating pain into limb, Denies stiffness and Denies tingling Neuro Denies abnormal gait, Denies dizziness, Denies numbness and Denies tingling Endo Denies palpitations Physical Exam Vital Signs: Last Vital Signs Pulse 88 01/01/25 13:44 BP 118/62 01/01/25 13:44 BMI result Body Mass Index 20.3 Const General: cooperative, healthy appearing, comfortable and no acute distress Orientation/consciousness: patient oriented x3 Neck Neck: Yes normal visual inspection and Yes no JVD Resp Effort & Inspection: normal respiratory effort Auscultation: clear to auscultation bilaterally, no crackles, no rales, no rhonchi and no wheezes Cardio Rate: regular rate Rhythm: regular rhythm Heart sounds: S1 normal heart sound present, S2 normal heart sound present, no gallops, no murmurs and no rubs Neuro General: patient oriented x3 Extrem General: Yes normal to inspection, No no pedal edema and No calf tenderness Psych Appearance: grossly normal Mental Status: mental status grossly normal Speech and movement: Normal speech and movement present Assessment & Plan Assessment & Plan (1) Palpitations: Code(s): R00.2 - Palpitations Category: Medical Plan: Reports of pounding heart, even at the time of this visit. EKG last visit showing normal sinus rhythm, rate 79. Holter monitor done 12/12/2024 for 7 days showed sinus rhythm with average heart rate 83, occasional PACs, 110 beat atrial run, occasional PVCs, longest run 7 beats, evidence of second-degree Mobitz 1, time not given. Echocardiogram 12/12/2024 showed EF 55-60%, grade 1 diastolic dysfunction, normal valves. Test results reviewed with him. Heart tones auscultated and not tachycardic or irregular. Suspect his after noon heart palpitations are related to lunchtime caffeine intake. Instructed to not have caffeinated soda in the afternoon. Continue metoprolol XL 100 mg daily. Call if symptoms persist. Cardiology follow-up 6 months, sooner if needed. (2) PVCs (premature ventricular contractions): Code(s): I49.3 - Ventricular premature depolarization Category: Medical Plan: Occasional PVCs and short NSVT runs. EF is normal which is reassuring. Continue beta-turner. (3) PAC (premature atrial contraction): Code(s): I49.1 - Atrial premature depolarization Category: Medical Plan: Occasional PACs and short SVT runs. No evidence of atrial fibrillation. Not consistent with what he is reporting for heart palpitations. Caffeine reduction reviewed. Continue beta-turner. (4) HTN (hypertension): Code(s): I10 - Essential (primary) hypertension Category: Medical Qualifiers: Hypertension type: primary hypertension Qualified Code(s): I10 - Essential (primary) hypertension Plan: Blood pressure goal less than 130/80. Well controlled. Continue metoprolol, amlodipine and lisinopril. (5) Mobitz type 1 second degree atrioventricular block: Code(s): I44.1 - Atrioventricular block, second degree Category: Medical Plan: Holter does mention evidence of second-degree Mobitz 1, time not given. Unsure if it is during sleep hours. He tells me he does snore but no witnessed apnea and would not wear a mask if he needed to. Will hold off on sleep study at this time. Plan Time spent on chart review, documentation, interview and assessment Coding Level of Care Code Est Pt Level 4 (34779) Complex EM visit Add On G2211 Diagnoses Palpitations R00.2 PVCs (premature ventricular contractions) I49.3 PAC (premature atrial contraction) I49.1 Primary hypertension I10 Hypertension type: primary hypertension Mobitz type 1 second degree atrioventricular block I44.1 Time Spent (min) 28
[2025-01-01 13:44] VITALS: BP 118/62; PULSE 88; BMI 20.3
== END 2025-01-01 14:20 | disposition home or self-care (01) ==
LOC: HO.HCS 13:42
PROVIDERS: PCP Nurse Practitioner Family; Visit Provider Nurse Practitioner Family
DX: R00.2 Palpitations (principal); I49.3 Ventricular premature depolarization; I49.1 Atrial premature depolarization; I10 Essential (primary) hypertension; I44.1 Atrioventricular block, second degree
CPT/HCPCS: 99214; G2211

== ENCOUNTER 2025-02-10 10:10 | Outpatient (REF) | payer OTHER, SELFPAY ==
--- NOTE | ~2025-02-10 | CT_ITS ---
EXAMINATION: CT LUNG SCREENING HISTORY: F17.210 - Nicotine dependence, cigarettes, uncomplicated TECHNIQUE: Low dose axial images were obtained from the sternal notch to upper abdomen without IV contrast per standard departmental protocol. Sagittal and coronal reformatted images were also obtained and reviewed. One or more of the following techniques was used for dose reduction: Automated exposure control, adjustment of the mA and/or kV according to patient size, use of iterative reconstruction technique. DLP: 45 mGy-cm COMPARISON: Comparison is made with the prior examination dated 01/09/2022. FINDINGS: Lung nodules: There is a 3 mm nodule in the right middle lobe (series 5, image 31). A 3 mm calcified granuloma is seen more inferiorly in the right middle lobe (5, image 119). There is a 2 mm nodule in the right lower lobe (series 5, image 133). A 3 mm nodule is noted at the left lung apex (series 5, image 32). Emphysema: mild Coronary Calcification: moderate Aortic Arch Calcification: mild Potentially Significant Incidentals : none Additional Chest Findings: There is no pleural or pericardial effusion. No mediastinal or axillary lymphadenopathy is identified. Visualized upper abdomen: The visualized portions of the liver, spleen, and right adrenal gland adrenals have an unremarkable unenhanced appearance. Again seen is a 1.7 cm low-density left adrenal nodule, compatible with an adenoma. CT/CT lung screening IMPRESSION: No suspicious pulmonary nodules are identified. LUNG-RADS ASSESSMENT: Lung-RADS 2: Benign MANAGEMENT: Continue annual screening with LDCT in 12 months Category S: N/A Electronically signed by: Zack Reynolds MD 02/12/2025 07:37 AM EST
--- NOTE | ~2025-02-10 | XR_ITS ---
EXAMINATION: XR ELBOW 3 VIEWS RIGHT HISTORY: M25.529 - Pain in unspecified elbow COMPARISON: There are no prior studies available for comparison. FINDINGS: Three views of the right elbow are submitted. Osseous mineralization is normal. There is no fracture or dislocation. There is mild degenerative change of the radiocapitellar joint. There is a 1.3 cm loose body in the anterior aspect of the joint space. XR/XR elbow RT min 3V IMPRESSION: Mild degenerative change of the radiocapitellar joint. 1.3 cm loose body in the anterior aspect of the joint space. Electronically signed by: Zack Reynolds MD 02/12/2025 07:25 AM [place]
== END 2025-02-10 10:11 | disposition home or self-care (01) ==
LOC: HO.CT 10:10
PROVIDERS: PCP Nurse Practitioner Family; Visit Provider Physician Assistant Medical
DX: M25.521 Pain in right elbow (principal); F17.210 Nicotine dependence, cigarettes, uncomplicated
CPT/HCPCS: 71271; 73080

== ENCOUNTER → 2025-02-10 10:14 | Outpatient (BNV) | payer OTHER, SELFPAY | PROVIDERS: PCP Nurse Practitioner Family; Visit Provider Radiology Diagnostic Radiology | DX: F17.210 Nicotine dependence, cigarettes, uncomplicated (principal); M19.021 Primary osteoarthritis, right elbow | CPT/HCPCS: 71271; 73080 ==